=== PATIENT | male | born 1945 | race Caucasian/White ===

== ENCOUNTER → 2016-11-06 | Outpatient (CLI) | payer MEDICARE ==
--- NOTE | 2016-11-06 08:04 | US ---
EXAMINATION TYPE: US duplex aorta DATE OF EXAM: 11/06/2016 7:15 AM COMPARISON: NONE CLINICAL HISTORY: Z78.9Screening For AAA,Z87.891 Personal hx of vincenzo. AAA screening EXAM MEASUREMENTS: Abdominal Aorta: Proximal: 2.1 x 2.4cm Mid: 1.8 x 1.7cm Distal: 1.5 x 1.4cm Rt Iliac: 0.7 x 0.9cm Lt Iliac: 0.8 x 1.0cm No AAA seen at this time, visualized portions of aorta wnl, mid portion limited by overlying bowel ga s IMPRESSION: 1. No abdominal aortic aneurysm
--- NOTE | 2016-11-06 10:23 | CTL ---
EXAMINATION TYPE: CT Low Dose LUNG CANCER SCREENING DATE OF EXAM ORDERED: 11/06/2016 7:43 AM HISTORY: 71-year-old male personal history of tobacco use. Lung cancer screening CT DLP: 79.[address] CTDI: 2.10 mGy Automated exposure control for dose reduction was used. SCREENING VISIT: Baseline COMPARISON: None TECHNIQUE: Low dose computed tomography scan was performed through the chest at 1 mm thick sections and reconstructed images in the coronal plane at [address] DIAGNOSTIC QUALITY: Satisfactory FINDINGS: The heart is normal size without pericardial effusion. Minimal coronary vascular calcifications are noted. There is conventional arch vessel branching anatomy with mild atherosclerotic arch calcifications and mild aneurysm of the upper descending thoracic aorta at 3.3 cm. The remainder of the descending thoracic aorta remains ectatic measuring up to 2.9 cm. Scattered nonenlarged mediastinal lymph nodes are present. No thoracic lymphadenopathy by CT size criteria allowing for noncontrast technique. Tiny calcified lymph nodes in both braydon and a calcified granuloma at the right apex. Evaluation of the lungs shows moderate centrilobular emphysema with moderate thickened biapical pleural parenchymal scarring. There is a tiny 4 mm subpleural pulmonary nodule peripheral right middle lobe axial image 181. No additional pulmonary nodule. Mild diffuse bronchial wall thickening. Hazy scarring or atelectasis at the posterior right base. There is a small hiatal hernia. Visualized upper abdomen shows a 1.2 cm nodule in the left adrenal gland, statistically, representing a benign adrenal adenoma. Bones: There is a superior endplate Schmorl's node of L2 and T4 vertebral bodies. No osseous destructive process. IMPRESSION: 1. LungRADS 3 - probably benign; a 4 mm right-sided pulmonary nodule on baseline. 2. COPD with moderate emphysema. 3. 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 4. Small hiatal hernia and a 1.2 cm left adrenal nodule. RECOMMENDATION: 1. Six-month follow-up low-dose CT to reassess the 4 mm pulmonary nodule. 2. Smoking cessation. 3. The 1.2 cm left adrenal gland nodule is presumably a benign adrenal adenoma and can be reassessed at a one-year follow-up CT. CT LUNG RAD: Lung-Rad 3 Probably Benign MTDD
== END | disposition home or self-care (01) ==
LOC: RADUSWWP 06:48
PROVIDERS: ATTEND Family Medicine
DX: J43.9 Emphysema, unspecified (principal); R91.1 Solitary pulmonary nodule; I71.2 Thoracic aortic aneurysm, without rupture; K44.9 Diaphragmatic hernia without obstruction or gangrene; Z87.891 Personal history of nicotine dependence; Z78.9 Other specified health status
CPT/HCPCS: 93979; G0297

== ENCOUNTER → 2018-07-13 | Outpatient (CLI) | payer MEDICARE ==
--- NOTE | 2018-07-13 09:27 | CTL ---
EXAMINATION TYPE: CT Low Dose Lung DATE OF EXAM ORDERED: 07/13/2018 HISTORY: 73-year-old male personal history of tobacco use (50 pack-years). Lung cancer screening CT DLP: [address] CTDI: 1.61 mGy Automated exposure control for dose reduction was used. SCREENING VISIT: 1.5 year follow-up from baseline COMPARISON: 11/06/2016 and 06/07/2017 TECHNIQUE: Low dose computed tomography scan was performed through the chest at 1 mm thick sections a nd reconstructed images in the coronal/sagittal plane. CT DIAGNOSTIC QUALITY: Satisfactory FINDINGS: Heart is normal size without pericardial effusion. Mild atherosclerotic arch calcifications. Conventional arterial vessel branching anatomy. Upper desce nding thoracic aorta mildly aneurysmal at 3.1 cm. Scattered nonenlarged mediastinal lymph nodes are unchanged. No progressive thoracic lymphadenopathy. Trace bilateral gynecomastia. Mild to moderate diffuse bronchial wall thickening and moderate emphysematous change. Stable biapical pleural-parenchymal scarring. Some strandy areas of scarring remain on both sides. Stable 4 mm subpl eural right middle lobe pulmonary nodule, axial image 184. No new suspicious pulmonary nodule or mass no consolidation or pleural effusion. Visualized upper abdomen shows a small hiatal hernia The previously seen left adrenal nodularity is not apparent on the current exam. There is a greater d egree the ethmoid artifact. Bones: Superior endplate Schmorl's node of L2 and T4 redemonstrated. IMPRESSION: 1. LungRADS 2 - benign; stable 4 mm right middle lobe pulmonary nodule. No new pulmonary nodules. 2. COPD with moderate emphysema. 3. Small hiatal hernia. RECOMMENDATION: 1. Continue annual low-dose lung cancer screening CT. 2. Smoking cessation. FOLLOW UP CT CHEST RECOMMENDATION: [address] LUNG RAD: Lung-Rad 2 Benign Appearance or Behavior
== END | disposition home or self-care (01) ==
LOC: RADCTMAIN 08:35
PROVIDERS: ATTEND Family Medicine
DX: Z12.2 Encounter for screening for malignant neoplasm of respiratory organs (principal); J43.9 Emphysema, unspecified; R91.1 Solitary pulmonary nodule; K44.9 Diaphragmatic hernia without obstruction or gangrene; Z87.891 Personal history of nicotine dependence

== ENCOUNTER → 2019-03-14 | Outpatient (CLI) | payer MEDICARE ==
--- NOTE | 2019-03-14 15:36 | US ---
EXAMINATION TYPE: US carotid duplex BILAT DATE OF EXAM: 03/14/2019 COMPARISON: NONE CLINICAL HISTORY: R42 vertigo. EXAM MEASUREMENTS: RIGHT: Peak Systolic Velocity (PSV) cm/sec ----- Right CCA: 66.9 ----- Right ICA: 83.1 ----- Right ECA: 72.9 ICA/CCA ratio: 1.2 RIGHT: End Diastole cm/sec ----- Right CCA: 19.7 ----- Right ICA: 34.7 ----- Right ECA: 12.7 LEFT: Peak Systolic Velocity (PSV) cm/sec ----- Left CCA: 64.3 ----- Left ICA: 77.9 ----- Left ECA: 17.7 ICA/CCA ratio: 1.2 LEFT: End Diastole cm/sec ----- Left CCA: 21.6 ----- Left ICA: 36.0 ----- Left ECA: 17.7 VERTEBRALS (direction of flow): Right Vertebral: Antegrade Left Vertebral: Antegrade Rhythm: Normal Mild plaque, no significant velocity increases seen bilaterally. IMPRESSION: Mild degree of grayscale atheromatous plaquing with no sonographically evident hemodynam ically significant stenosis within either visualized carotid arterial system. Criteria for Assigning % of Stenosis / Diameter reduction (Estimation based on the indirect measurements of the internal carotid artery velocities (ICA PSV). 1. Normal (no stenosis)=ICA PSV < 125 cm/s: ratio < 2.0: ICA EDV<40 cm/s. 2. Less than 50% stenosis=ICA PSV < 125 cm/s: ratio < 2.0: ICA EDV<40 cm/s. 3. 50 to 69% stenosis=ICA PSV of 125 to 230 cm/s: ration 2.0 ? 4.0: ICA EDV 40-100 cm/s. 4. Greater than 70% stenosis to near occlusion= ICA PSV > 230 cm/s: ratio > 4.0: ICA EDV > 100 cm/s. 5. Near occlusion= ICA PSV velocities may be low or undetectable: variable ratio and ICA EDV. 6. Total occlusion=unable to detect flow.
== END | disposition home or self-care (01) ==
LOC: RADUSWWP 14:04
PROVIDERS: ATTEND Family Medicine
DX: I65.29 Occlusion and stenosis of unspecified carotid artery (principal); R42 Dizziness and giddiness
CPT/HCPCS: 93880

== ENCOUNTER → 2019-03-16 | Outpatient (CLI) | payer MEDICARE ==
--- NOTE | 2019-03-16 12:03 | ECHOS ---
STRESS ECHOCARDIOGRAM INDICATIONS: Vertigo. MEDICATIONS: None. BASELINE HEART RATE: 77 BASELINE BLOOD PRESSURE: 118/82 MAXIMUM HEART RATE: 139 MAXIMUM BLOOD PRESSURE: 197/94 85% MPHR: 123 100% MPHR: 145 METS: 7.1 MAXIMUM STAGE REACHED: 2 TOTAL EXERCISE TIME: 6:02 CLINICAL INFORMATION: Baseline rhythm is a sinus mechanism, rate of 77, normal axis and intervals, rare PVCs. Baseline blood pressure 118/82 mmHg. Patient exercised on Good protocol for 6 minutes, 2 seconds reaching peak rate 139 beats per minute which is equal to 96% maximum predicted heart rate. Peak blood pressure 197/74 mmHg. Test was terminated secondary to fatigue. There was no chest pain. Electrocardiograph monitoring revealed frequent ventricular ectopic activity with episode of supraventricular ectopic activity, rare ventricular couplets were noted. There was no evidence of diagnostic ischemic ST- segment changes. FINDINGS: Baseline echocardiogram revealed normal wall thickening and motion. The images obtained at rest following exercise were done when the heart rate has returned to almost baseline Because of the severe arrhythmia and the quality of the images suboptimal. No clear conclusion could be made. CONCLUSION: 1. Average exercise tolerance with no electrocardiographic ST-segment changes with frequent ventricular ectopic activity and episode of supraventricular ectopic activity. 2. Nondiagnostic stress echocardiogram because of the severe arrhythmia and the suboptimal images. 3. If clinically indicated a pharmacological nuclear imaging test will be helpful. MMODL / IJN: [id number] /
== END | disposition home or self-care (01) ==
LOC: RADNMMAIN 08:58
PROVIDERS: ATTEND Family Medicine
DX: I49.3 Ventricular premature depolarization (principal); I25.10 Atherosclerotic heart disease of native coronary artery without angina pectoris
CPT/HCPCS: 93351

== ENCOUNTER → 2019-06-20 | Day surgery (SDC) | payer MEDICARE ==
[2019-06-12 12:53] VITALS: BMI 21.4
[~2019-06-20] MED LIST: ATORVASTATIN 20 MG TAB PO SCH; MIDAZOLAM 2 MG/2 ML VIAL IVP ONE; NON FORMULARY DRUG (Aspirin [Adult Low Dose Aspirin Ec] 81 MG) PO SCH; NON FORMULARY DRUG (Latanoprost/Pf [Latanoprost 0.005% Eye Drop] 1 DROP) BOTH EYES SCH; SODIUM CHLORIDE 0.9% 1,000 ML IV SCH; SODIUM CHLORIDE 0.9% 500 ML 500 ML IV ONE; VARENICLINE 1 MG TAB PO SCH; fentaNYL (PF) 50 MCG/ML 2 ML AMP IVP ONE; fentaNYL (PF) 50 MCG/ML 2 ML AMP ONE
[2019-06-20 06:39] VITALS: TEMP 98.2
[2019-06-20] MEDS: BENZOCAINE SPRAY 1 CAN TOPICAL ONE ×2 (07:23→07:32)
[2019-06-20 07:48] VITALS: RESP 14
--- NOTE | 2019-06-20 08:15 | ECHOT ---
TRANSESOPHAGEAL ECHOCARDIOGRAM INDICATION: Evaluation of mitral valve. PROCEDURE: After explaining the procedure to the patient, its risks and the complications, his blood pressure, heart rate, O2 saturation was monitored. The throat was sprayed with Cetacaine. He received 3 mg intravenous Versed, 50 mcg intravenous fentanyl. The probe was introduced in the esophagus without difficulty. Images were obtained. Following that, the probe was removed. There was no immediate complication. FINDINGS: Left atrial size is dilated. Left atrial appendage is normal. Left ventricular size and systolic function normal. The aortic valve appears to be normal. Tricuspid valve is normal. The mitral valve reveals severe collapse of the P3 segment. The descending thoracic aorta appears to be normal. No pericardial effusion was noted. Doppler pulse wave and color Doppler obtained and revealed a severe mitral regurgitation with mild tricuspid regurgitation. There was no shunting across the interatrial septum by color Doppler study. CONCLUSION: 1. Dilated left atrium with normal appearance of left atrial appendage. 2. Normal left ventricular size and systolic function. 3. Severe prolapse of the posterior mitral valve leaflets with severe mitral regurgitation. 4. Mild tricuspid regurgitation. 5. No shunting by color Doppler study. 6. Normal appearance to the descending thoracic aorta. 7. No pericardial effusion. MMODL / IJN: [id number] /
[2019-06-20 08:22] VITALS: PULSE 71
[2019-06-20 08:42] VITALS: BP 116/57
== END | disposition home or self-care (01) ==
LOC: CATHCVL 06:19
PROVIDERS: ATTEND Internal Medicine Interventional Cardiology
DX: I08.1 Rheumatic disorders of both mitral and tricuspid valves (principal); E78.2 Mixed hyperlipidemia; R11.0 Nausea; R35.1 Nocturia; F17.210 Nicotine dependence, cigarettes, uncomplicated; Z79.899 Other long term (current) drug therapy; Z79.82 Long term (current) use of aspirin; Z88.0 Allergy status to penicillin
CPT/HCPCS: 93312; 93325; J2250; J3010

== ENCOUNTER → 2019-07-12 | Outpatient (CLI) | payer MEDICARE ==
[2019-07-12 13:14] LABS: African American GFR (CKD) 95.8 (60.0-200.0); Albumin 4.5 g/dL (3.80-4.90); Albumin/Globulin Ratio 2.25 (1.60-3.17); Anion Gap 7.5 mmol/L (4.00-12.00); BUN/Creat Ratio 21.11 Ratio (12.00-20.00); Calcium 9.4 mg/dL (8.7-10.3); Carbon Dioxide 26.5 mmol/L (21.6-31.8); Chol/HDL Ratio 2.32; LDL Cholesterol,Calculated 68.2 mg/dL (0.0-131.0); Non-African American GFR(CKD) 82.7 (60.0-200.0); Potassium 4.2 mmol/L (3.5-5.5); Total Bilirubin 0.8 mg/dL (0.3-1.2); Total Protein 6.5 g/dL (6.2-8.2); VLDL Calculation 14.8 mg/dL (5.00-40.00)
== END | disposition home or self-care (01) ==
LOC: LABWHC1 07:18
PROVIDERS: ATTEND Internal Medicine Interventional Cardiology
DX: E78.2 Mixed hyperlipidemia (principal)
CPT/HCPCS: 36415; 80053; 80061

== ENCOUNTER 2019-07-13 06:10 | Day surgery (SDC) | payer MEDICARE ==
[2019-07-11 11:35] VITALS: BMI 21.4
[~2019-07-13 06:10] MED LIST changes: +ALPRAZolam 0.25 MG TAB PO PRN; +ALPRAZolam 0.5 MG TAB PO PRN; -ATORVASTATIN 20 MG TAB PO SCH; -MIDAZOLAM 2 MG/2 ML VIAL IVP ONE; +NITROGLYCERIN SL TABS 0.4 MG TAB SUBLINGUAL PRN; -NON FORMULARY DRUG (Aspirin [Adult Low Dose Aspirin Ec] 81 MG) PO SCH; -NON FORMULARY DRUG (Latanoprost/Pf [Latanoprost 0.005% Eye Drop] 1 DROP) BOTH EYES SCH; -SODIUM CHLORIDE 0.9% 1,000 ML IV SCH; +SODIUM CHLORIDE 0.9% 1,000 ML in EMPTY BAG 1 BAG IV ONE; -SODIUM CHLORIDE 0.9% 500 ML 500 ML IV ONE; -VARENICLINE 1 MG TAB PO SCH; -fentaNYL (PF) 50 MCG/ML 2 ML AMP IVP ONE; -fentaNYL (PF) 50 MCG/ML 2 ML AMP ONE
[2019-07-13 06:49] VITALS: RESP 16; TEMP 97.8
[2019-07-13] MEDS ORDERED: SODIUM CHLORIDE 0.9% 1,000 ML IV ONE (06:51)
[2019-07-13] MEDS ORDERED: ATORVASTATIN 80 MG TAB PO ONE (07:00)
[2019-07-13] MEDS ORDERED: ASPIRIN 325 MG TAB PO ONE (07:00)
[2019-07-13 07:10] LABS: Basophils # (A) 0.1 k/uL (0-0.2); Basophils % (A) 1 %; Eosinophils # (A) 0.2 k/uL (0-0.7); Eosinophils % (A) 3 %; HCT 47.3 % (39.0-53.0); HGB 15.6 gm/dL (13.0-17.5); Lymphocytes # (A) 1.2 k/uL (1.0-4.8); Lymphocytes % (A) 16 %; MCH 31.5 pg (25.0-35.0); MCHC 33.1 g/dL (31.0-37.0); MCV 95.2 fL (80.0-100.0); Mean Platelet Volume 7.7; Monocytes # (A) 0.5 k/uL (0-1.0); Monocytes % (A) 7 %; Neutrophils # (A) 4.9 k/uL (1.3-7.7); Neutrophils % (A) 70 %; Platelet Count 199 k/uL (150-450); RBC 4.97 m/uL (4.30-5.90); RDW 12.8 % (11.5-15.5); WBC 7.1 k/uL (3.8-10.6)
[2019-07-13 07:20] LABS: African American GFR (CKD) >90 (>60 ml/min/1.73 sqM); Anion Gap 10 mmol/L; Blood Urea Nitrogen 24 mg/dL (9-20); Calcium 9.4 mg/dL (8.4-10.2); Carbon Dioxide 27 mmol/L (22-30); Chloride 107 mmol/L (98-107); Glucose 101 mg/dL (74-99); Non-African American GFR(CKD) 86 (>60 ml/min/1.73 sqM); Potassium 4.3 mmol/L (3.5-5.1); Sodium 144 mmol/L (137-145)
[2019-07-13] MEDS ORDERED: VERAPAMIL 2.5 MG/ML 2 ML AMP ONE (07:28)
[2019-07-13] MEDS ORDERED: fentaNYL (PF) 50 MCG/ML 2 ML AMP ONE (07:28)
[2019-07-13] MEDS ORDERED: LIDOCAINE 1% INJ 10MG/ML (20 ML MDV) ONE (07:28)
[2019-07-13] MEDS ORDERED: HEPARIN SODIUM 1,000 UN/ML (10ML VL) ONE (07:28)
[2019-07-13] MEDS ORDERED: fentaNYL (PF) 50 MCG/ML 2 ML AMP IV ONE (07:36)
[2019-07-13] MEDS ORDERED: LIDOCAINE 1% INJ 10MG/ML (20 ML MDV) SQ ONE (07:39)
[2019-07-13] MEDS ORDERED: MIDAZOLAM 2 MG/2 ML VIAL IV ONE (07:39)
[2019-07-13] MEDS ORDERED: VERAPAMIL SYRINGE (5 MG/10 ML) INTRAARTER ONE (07:48)
[2019-07-13] MEDS ORDERED: HEPARIN SODIUM 1,000 UN/ML (10ML VL) IV ONE ×2 (07:53→07:56)
[2019-07-13] MEDS ORDERED: IOPAMIDOL-370 125ML BTL INJ ONE (08:16)
[2019-07-13] MEDS ORDERED: RX INFO: IV CONTRAST WAS GIVEN 1 EACH MISC MISCELLANE PRN (08:19)
[2019-07-13] MEDS ORDERED: SODIUM CHLORIDE 0.9% 1,000 ML IV SCH (08:30)
--- NOTE | 2019-07-13 08:39 | CC ---
CARDIAC CATHETERIZATION REPORT Mr. Bedolla is a 74-year-old male with a known history off mitral valve disease, who was found to have severe mitral valve regurgitation as well as mitral valve prolapse. He has symptoms of dyspnea. In view of that, recommendation made regarding cardiac catheterization. The procedures, risks, and complication were discussed with the patient who is in full understanding and agreement. PROCEDURE: Patient was brought to labor relations teacher in a fasting semi-sedated state after receiving fentanyl and Benadryl and achieving moderate conscious sedated state. Using Xylocaine anesthesia and Seldinger technique, a 6-Prydeinig sheath was introduced in the right radial artery. The intravenous catheter in the brachial area was exchanged to a 6- Prydeinig sheath over a guidewire. Subsequently, attempts to advance a Mcroberts-Malinad catheter in the superior vena cava were unsuccessful. That catheter was removed and selective right and left coronary angiography performed using 5-Prydeinig 3.5 bend right and left Edson catheter, multiple views of the coronary artery including hemiaxial views obtained. Following that, a 5-Prydeinig tight pigtail catheter was introduced into the left ventricle and a 30-degree RICHARDS view of the left ventricle was obtained. Following that, catheter and sheath were removed. Hemostasis was obtained with deployment of a TR band. There was no immediate complication. Patient is returned to his room in stable condition. Of note, the patient received 4000 units of intravenous heparin as well as intra-arterial verapamil. FINDINGS: LEFT MAIN: This is a large-sized vessel, bifurcating into left circumflex, left anterior descending artery, left main coronary artery has no evidence of high-grade stenosis. LEFT ANTERIOR DESCENDING ARTERY: This is a large-sized vessel, reaching toward the apex with a wraparound apex segment giving rise to a moderate-sized diagonal branch in mid segment. The left anterior descending coronary artery as well as branches have no evidence of obstructive coronary artery disease. LEFT CIRCUMFLEX: This is a nondominant vessel giving rise to a proximal obtuse marginal branch. The second obtuse marginal branch is small in caliber. The left circumflex as well as branches have no evidence of obstructive coronary artery disease. RIGHT CORONARY ARTERY: This is a dominant vessel, large in caliber, bifurcating in PDA and posterolateral segment branches. The right coronary artery as well as branches have no evidence of obstructive coronary artery disease. LEFT VENTRICULOGRAM: Left was performed in the 30 degree RICHARDS view and revealed normal left ventricular size and systolic function. There was a 3 to 4+ mitral regurgitation. HEMODYNAMICS: There was no gradient across the aortic valve. The left ventricular end- diastolic pressure was 10-12 mmHg. CONCLUSION: 1. Normal coronary arteries. 2. Normal left ventricular size and systolic function with severe mitral regurgitation. RECOMMENDATION: In view of finding anatomy, I recommend continue medical therapy and proceed with evaluation for mitral valve repair. Those findings and recommendation were discussed with the patient and his family who are in full understanding and agreement. Duration of procedure is 18 minutes. MMODL / IJN: [id number] /
[2019-07-13] MEDS ORDERED: VARENICLINE 1 MG TAB PO SCH (09:00)
[2019-07-13] MEDS ORDERED: NON FORMULARY DRUG (Aspirin [Adult Low Dose Aspirin Ec] 81 MG) PO SCH (09:00)
[2019-07-13 13:17] VITALS: BP 125/64; PULSE 65
[2019-07-13] MEDS ORDERED: ATORVASTATIN 20 MG TAB PO SCH (21:00)
[2019-07-13] MEDS ORDERED: NON FORMULARY DRUG (Latanoprost/Pf [Latanoprost 0.005% Eye Drop] 1 DROP) BOTH EYES SCH (21:00)
== END 2019-07-13 13:35 | disposition home or self-care (01) ==
LOC: CATHCVL 06:10
PROVIDERS: ATTEND Internal Medicine Interventional Cardiology
DX: I34.0 Nonrheumatic mitral (valve) insufficiency (principal); I34.1 Nonrheumatic mitral (valve) prolapse; E78.2 Mixed hyperlipidemia; I71.4 Abdominal aortic aneurysm, without rupture; E78.00 Pure hypercholesterolemia, unspecified; E78.5 Hyperlipidemia, unspecified; I73.9 Peripheral vascular disease, unspecified; Z79.899 Other long term (current) drug therapy; Z87.891 Personal history of nicotine dependence; Z79.82 Long term (current) use of aspirin; Z88.0 Allergy status to penicillin
CPT/HCPCS: 93458; 80048; 85025; C1751; C1769; C1894; J2250; J2001; J3010; J1644; Q9967

== ENCOUNTER → 2019-12-27 | Outpatient (CLI) | payer MEDICARE ==
[2019-12-27 17:08] LABS: African American GFR (CKD) 95.8 (60.0-200.0); Albumin 4.1 g/dL (3.80-4.90); Albumin/Globulin Ratio 1.95 (1.60-3.17); Anion Gap 5.5 mmol/L (4.00-12.00); BUN/Creat Ratio 21.11 Ratio (12.00-20.00); Carbon Dioxide 25.5 mmol/L (21.6-31.8); Chol/HDL Ratio 2.33; Globulin 2.1 g/dL (1.6-3.3); LDL Cholesterol,Calculated 65.2 mg/dL (0.0-131.0); Non-African American GFR(CKD) 82.7 (60.0-200.0); Potassium 4.4 mmol/L (3.5-5.5); Total Bilirubin 0.5 mg/dL (0.3-1.2); Total Protein 6.2 g/dL (6.2-8.2); VLDL Calculation 11.8 mg/dL (5.00-40.00)
== END | disposition home or self-care (01) ==
LOC: LABWHC1 08:09
PROVIDERS: ATTEND Internal Medicine Interventional Cardiology
DX: E78.2 Mixed hyperlipidemia (principal)
CPT/HCPCS: 36415; 80053; 80061

== ENCOUNTER → 2020-06-17 | Outpatient (CLI) | payer MEDICARE ==
[2020-06-17 17:00] LABS: African American GFR (CKD) 95.1 (60.0-200.0); Albumin 4.5 g/dL (3.80-4.90); Albumin/Globulin Ratio 2.05 (1.60-3.17); Anion Gap 6.7 mmol/L (4.00-12.00); BUN/Creat Ratio 25.56 Ratio (12.00-20.00); Calcium 9.3 mg/dL (8.7-10.3); Carbon Dioxide 26.3 mmol/L (21.6-31.8); Chol/HDL Ratio 2.85; Globulin 2.2 g/dL (1.6-3.3); LDL Cholesterol,Calculated 87.4 mg/dL (0.0-131.0); Non-African American GFR(CKD) 82.1 (60.0-200.0); Potassium 4.3 mmol/L (3.5-5.5); Total Bilirubin 1.1 mg/dL (0.2-1.2); Total Protein 6.7 g/dL (6.2-8.2); VLDL Calculation 14.6 mg/dL (5.00-40.00)
== END | disposition home or self-care (01) ==
LOC: LABWHC1 09:18
PROVIDERS: ATTEND Internal Medicine Interventional Cardiology
DX: E78.2 Mixed hyperlipidemia (principal)
CPT/HCPCS: 36415; 80053; 80061

== ENCOUNTER → 2020-11-14 | Outpatient (CLI) | payer MEDICARE ==
--- NOTE | 2020-11-14 10:15 | CTL ---
EXAMINATION TYPE: CT Low Dose Lung DATE OF EXAM ORDERED: 11/14/2020 HISTORY: Long-term tobacco use. Lung cancer screening CT DLP: [address] CTDI: 1.57 mGy Automated exposure control for dose reduction was used. SCREENING VISIT: Second after baseline COMPARISON: 2018 and 2017 TECHNIQUE: Low dose computed tomography scan was performed through the chest at 1 mm thick sections a nd reconstructed images in the coronal plane at [address] DIAGNOSTIC QUALITY: Satisfactory FINDINGS: LUNG NODULES: Present, detailed below: Stable 3 mm subpleural nodule right middle lobe axial image 186. Stable 3-4 mm right upper lobe nodule axial image 72 in retrospect. LUNGS: COPD: Severity: Moderate Fibrosis: Severity: Moderate biapical Lymph nodes: No new greater than 1 cm Other findings: None RIGHT PLEURAL SPACE: Effusion: None Calcification: None Thickening: None Pneumothorax: None LEFT PLEURAL SPACE: Effusion: None Calcification: None Thickening: None Pneumothorax: None HEART: Heart Size: Normal Coronary calcification: Mild Pericardial effusion: None OTHER FINDINGS: Upper abdomen: Stable small slight hiatal hernia. Stable asymmetric thickening to left adrenal gland. Nonspecific 1.7 cm hypodense lesion right hepatic lobe image 354 not included in field of view on pr ior study. Bony thorax: Prominent Schmorl node superior L2 endplate redemonstrated. Supraclavicular region: Asymmetric prominence left thyroid lobe versus right thyroid lobe Other: Mild calcified plaque of the aorta extends into branch vessels IMPRESSION: Moderate emphysematous change with stable small nodules. No new or enlarging nodules. CT LUNG RAD AND CT CHEST RECOMMENDATION: Lung-Rad 2 Benign Appearance or Behavior: Continue annual sc reening with LDCT in 12 months. S Modifier (other clinically significant findings): None
[2020-11-14 16:39] LABS: Chol/HDL Ratio 2.91
== END | disposition home or self-care (01) ==
LOC: RADCTMAIN 06:56
PROVIDERS: ATTEND Family Medicine
DX: Z12.2 Encounter for screening for malignant neoplasm of respiratory organs (principal); J43.9 Emphysema, unspecified; R91.8 Other nonspecific abnormal finding of lung field; Z87.891 Personal history of nicotine dependence
CPT/HCPCS: 36415; 71271; 80061

== ENCOUNTER → 2021-03-13 | Outpatient (CLI) | payer MEDICARE ==
[2021-03-13 22:11] LABS: African American GFR (CKD) 95.1 (60.0-200.0); Albumin 4.8 g/dL (3.80-4.90); Albumin/Globulin Ratio 2.09 (1.60-3.17); Anion Gap 9.8 mmol/L (4.00-12.00); BUN/Creat Ratio 21.11 Ratio (12.00-20.00); Calcium 9.5 mg/dL (8.7-10.3); Carbon Dioxide 25.2 mmol/L (21.6-31.8); Chol/HDL Ratio 2.67; Globulin 2.3 g/dL (1.6-3.3); LDL Cholesterol,Calculated 86.8 mg/dL (0.0-131.0); Non-African American GFR(CKD) 82.1 (60.0-200.0); Potassium 4.2 mmol/L (3.5-5.5); Total Bilirubin 0.7 mg/dL (0.3-1.2); Total Protein 7.1 g/dL (6.2-8.2); VLDL Calculation 13.2 mg/dL (5.00-40.00)
== END | disposition home or self-care (01) ==
LOC: LABWHC1 07:32
PROVIDERS: ATTEND Nurse Practitioner Adult Health
DX: E78.2 Mixed hyperlipidemia (principal)
CPT/HCPCS: 36415; 80053; 80061

== ENCOUNTER → 2021-07-21 | Outpatient (CLI) | payer MEDICARE ==
[2021-07-21 15:01] LABS: African American GFR (CKD) 98.3 (60.0-200.0); Albumin/Globulin Ratio 1.48 (1.60-3.17); Anion Gap 9.8 mmol/L (10.00-18.00); BUN/Creat Ratio 24.36 Ratio (12.00-20.00); Blood Urea Nitrogen 19.9 mg/dL (9.0-27.0); Calcium 8.9 mg/dL (8.7-10.3); Carbon Dioxide 24.2 mmol/L (20.0-27.5); Globulin 2.7 g/dL (1.6-3.3); HDL Cholesterol 47.7 mg/dL (40.00-60.00); Non-African American GFR(CKD) 84.8 (60.0-200.0); Potassium 4.4 mmol/L (3.5-5.5); Total Bilirubin 0.3 mg/dL (0.30-1.20); Total Protein 6.7 g/dL (6.2-8.2); Triglycerides 44.2 mg/dL (0.00-149.00)
[2021-07-21 15:17] LABS: Chol/HDL Ratio 2.68 Ratio
[2021-07-21 15:18] LABS: LDL Cholesterol,Direct Reflex 70.6 mg/dL (0.00-129.00)
== END | disposition home or self-care (01) ==
LOC: LABWHC1 08:14
PROVIDERS: ATTEND Internal Medicine Interventional Cardiology
DX: E78.2 Mixed hyperlipidemia (principal)
CPT/HCPCS: 36415; 80053; 80061; 83721

== ENCOUNTER → 2021-08-21 | Outpatient (CLI) | payer MEDICARE ==
--- NOTE | 2021-08-21 09:54 | P.PN ---
Progress Note - Text Progress Note Date: 08/21/21 5 meter walk test completed without difficulty: #1 2.98 sec #2 3.33 sec #3 3.73 sec
[2021-08-21 10:10] LABS: INR 0.9 (<1.2); Partial Thromboplastin Time 24.6 sec (22.0-30.0); Prothrombin Time 10.4 sec (9.0-12.0)
[2021-08-21 10:35] LABS: Appearance,Urine Clear (Clear); Bilirubin,Urine Negative (Negative); Blood,Urine Negative (Negative); Color,Urine Yellow; Glucose,Urine (UA) Negative (Negative); Ketones,Urine Negative (Negative); Leukocyte Esterase,Urine Negative (Negative); Nitrite,Urine Negative (Negative); Protein,Urine Negative (Negative); Specific Gravity,Urine 1.016 (1.001-1.035); Urobilinogen,Urine <2.0 mg/dL (<2.0)
--- NOTE | 2021-08-21 11:15 | XR ---
EXAMINATION TYPE: XR chest 2V DATE OF EXAM: 08/21/2021 COMPARISON: CT dated 11/14/2020 HISTORY: Presurgical for heart TECHNIQUE: Frontal and lateral views of the chest are obtained. FINDINGS: COPD changes. Bilateral apical pulmonary fibrotic changes. Minimal left basal pulmonary atelectasis. No sizable pleural effusion or definite pneumothorax. No gross cardiomegaly. Aortic atherosclerotic calcifications. Osteopenia. Stable central height reduc tion of T7 vertebral body. IMPRESSION: COPD changes with bilateral apical pulmonary fibrotic changes.
--- NOTE | 2021-08-21 13:20 | US ---
EXAMINATION TYPE: US carotid duplex BILAT DATE OF EXAM: 08/21/2021 COMPARISON: US CLINICAL HISTORY: I34.0 mitral valve insufficiency. Pre op diagnostic testing; prior smoker; dizzines s EXAM MEASUREMENTS: RIGHT: Peak Systolic Velocity (PSV) cm/sec ----- Right CCA: 71.0 ----- Right ICA: 68.6 ----- Right ECA: 58.1 ICA/CCA ratio: 1.0 RIGHT: End Diastole cm/sec ----- Right CCA: 22.6 ----- Right ICA: 25.0 ----- Right ECA: 15.4 LEFT: Peak Systolic Velocity (PSV) cm/sec ----- Left CCA: 74.3 ----- Left ICA: 67.5 ----- Left ECA: 74.3 ICA/CCA ratio: 0.9 LEFT: End Diastole cm/sec ----- Left CCA: 21.0 ----- Left ICA: 28.7 ----- Left ECA: 14.2 VERTEBRALS (direction of flow): Right Vertebral: Antegrade Left Vertebral: Antegrade Rhythm: Arrhythmia Mild intimal wall thickening is noted at bilateral carotid bifurcation and PSV is wnl bilaterally. IMPRESSION: Mild intimal thickening. No significant flow-limiting stenosis based on velocities evide nt. Criteria for Assigning % of Stenosis / Diameter reduction (Estimation based on the indirect measurements of the internal carotid artery velocities (ICA PSV). 1. Normal (no stenosis)=ICA PSV < 125 cm/s: ratio < 2.0: ICA EDV<40 cm/s. 2. Less than 50% stenosis=ICA PSV < 125 cm/s: ratio < 2.0: ICA EDV<40 cm/s. 3. 50 to 69% stenosis=ICA PSV of 125 to 230 cm/s: ration 2.0 ? 4.0: ICA EDV 40-100 cm/s. 4. Greater than 70% stenosis to near occlusion= ICA PSV > 230 cm/s: ratio > 4.0: ICA EDV > 100 cm/s. 5. Near occlusion= ICA PSV velocities may be low or undetectable: variable ratio and ICA EDV. 6. Total occlusion=unable to detect flow.
[2021-08-21 15:02] LABS: HCT 47.3 % (39.6-50.0); HGB 15.3 g/dL (13.0-17.0); MCH 31.2 pg (27.0-32.0); MCHC 32.3 g/dL (32.0-37.0); MCV 96.5 fL (80.0-97.0); Mean Platelet Volume 10.7 fL (9.5-12.2); NRBC Per 100 WBC 0 /100 WBCS (0.0-0.0); Platelet Count 187 X 10*3/uL (140-440)
[2021-08-21 15:37] LABS: Hepatitis A Antibody IgM Nonreactive (Nonreactive); Hepatitis B Core IgM Nonreactive (Nonreactive); Hepatitis B Surface Antigen Nonreactive (Nonreactive); Hepatitis C IgG Antibody Nonreactive (Nonreactive)
[2021-08-21 15:43] LABS: ALT 20 U/L (10-49); AST 19 U/L (14-35); African American GFR (CKD) 95.8 (60.0-200.0); Albumin 4.6 g/dL (3.8-4.9); Albumin/Globulin Ratio 1.95 (1.60-3.17); Alkaline Phosphatase 62 U/L (41-126); BUN/Creat Ratio 21.15 Ratio (12.00-20.00); Blood Urea Nitrogen 18.4 mg/dL (9.0-27.0); Calcium 9.1 mg/dL (8.7-10.3); Carbon Dioxide 25.1 mmol/L (20.0-27.5); Chloride 101 mmol/L (96-109); Chol/HDL Ratio 2.42 Ratio; Globulin 2.4 g/dL (1.6-3.3); Glucose 100 mg/dL (70-110); Magnesium 2.3 mg/dL (1.5-2.4); Non-African American GFR(CKD) 82.7 (60.0-200.0); Potassium 4.3 mmol/L (3.5-5.5); Sodium 138 mmol/L (135-145); VLDL Calculation 12.96 mg/dL (5.00-40.00)
== END | disposition home or self-care (01) ==
LOC: LABPAT 08:49
PROVIDERS: ATTEND Surgery
DX: I34.0 Nonrheumatic mitral (valve) insufficiency (principal); Z79.01 Long term (current) use of anticoagulants; E78.5 Hyperlipidemia, unspecified
CPT/HCPCS: 36415; 71046; 80053; 80061; 80074; 81003; 83036; 83735; 84443; 85027; 85610; 85730; 87070; 87086; 93880

== ENCOUNTER 2021-08-25 05:34 | Inpatient (IN) | payer MEDICARE ==
[~2021-08-25 05:34] MED LIST changes: +ALBUMIN HUMAN 25% 50 ML IV ONE; -ALPRAZolam 0.25 MG TAB PO PRN; -ALPRAZolam 0.5 MG TAB PO PRN; +ASPIRIN 325 MG TAB PO ONE; +ATORVASTATIN 10 MG TAB PO ONE; +CALCIUM CHLORIDE 100 MG/ML 10 ML SYRINGE IV ONE; +CHLORHEXIDINE GLUCONATE 15 ML CUP MUCOUS MEM ONE; +CLEVIDIPINE BUTYRATE 25 MG in EMPTY BAG 1 BAG IV ONE; +ELECTROLYTE-A SOLUTION 1,000 ML with POTASSIUM CHLORIDE 100 MEQ, MAGNESIUM SULFATE 16 M... IV ONE; +ELECTROLYTE-A SOLUTION 1,000 ML with POTASSIUM CHLORIDE 40 MEQ, MAGNESIUM SULFATE 16 ME... IV ONE; +HEPARIN SODIUM 1,000 UN/ML (10ML VL) IV ONE; +HEPARIN SODIUM,PORCINE 5,000 UNIT in SODIUM CHLORIDE 0.9% 500 ML 500 ML IV ONE; +INSULIN REGULAR 100 UNIT in SODIUM CHLORIDE 0.9% 100 ML IV ONE; +LACTATED RINGERS 1,000 ML IV ONE; +MAGNESIUM SULFATE 16.24 MEQ in EMPTY SYRINGE 1 SYR IV ONE; +MANNITOL 25% 12.5 GM/50 ML VIAL IV ONE; +METOPROLOL TARTRATE 12.5 MG TAB PO ONE; +NITROGLYCERIN SL TABS 0.4 MG TAB SUBLINGUAL ONE; -NITROGLYCERIN SL TABS 0.4 MG TAB SUBLINGUAL PRN; +NITROGLYCERIN-D5W PMX 25 MG/250 ML BTL IV ONE; +NITROGLYCERIN-D5W PMX 50 MG in DEXTROSE/WATER 1 250ML.BAG IV ONE; +NOREPINEPHRINE 4 MG in SODIUM CHLORIDE 0.9% 250 ML IV ONE; +PHENYLEPHRINE 10 MG/ML VIAL IV ONE; +PHENYLEPHRINE 40 MG in SODIUM CHLORIDE 0.9% 250 ML IV ONE; +PROTAMINE SULFATE 10 MG/ML 25 ML VIAL IV ONE; +PROTAMINE SULFATE 250 MG in EMPTY BAG 1 BAG IV ONE; +SODIUM BICARB 8.4% 50 ML SYR (1 MEQ/ML) IV ONE; +SODIUM CHLORIDE 0.9% 1,000 ML IV ONE; -SODIUM CHLORIDE 0.9% 1,000 ML in EMPTY BAG 1 BAG IV ONE; +TRANEXAMIC ACID 2,000 MG in SODIUM CHLORIDE 0.9% 80 ML IV ONE; +ceFAZolin 1,000 MG in SODIUM CHLORIDE 0.9% IRRIGATIO 1,000 ML IRRIGATION ONE; +propofoL 1,000 MG/100 ML VIAL IV ONE
[2021-08-25] MEDS ORDERED: PROTAMINE SULFATE 10 MG/ML 25 ML VIAL IV ONE (07:26)
[2021-08-25] MEDS ORDERED: fentaNYL (PF) 50 MCG/ML 50 ML VIAL ONE (07:26)
[2021-08-25] MEDS ORDERED: ePHEDrine 50 MG/ML 1 ML VIAL ONE (07:26)
[2021-08-25] MEDS ORDERED: TRANEXAMIC ACID IN NACL,ISO-OS 1,000 MG/100 ML BAG ONE (07:26)
[2021-08-25] MEDS ORDERED: SODIUM CHLORIDE 0.9% IRRIG 1,000 ML BTL IRRIGATION ONE (07:26)
[2021-08-25] MEDS ORDERED: HEPARIN SODIUM,PORCINE 10,000 UNIT/ML 1 ML VIAL ONE (07:26)
[2021-08-25] MEDS ORDERED: VECURONIUM 10 MG VIAL IV ONE (07:26)
[2021-08-25] MEDS ORDERED: PROPOFOL 10 MG/ML 20 ML VIAL IV ONE (07:26)
[2021-08-25] MEDS ORDERED: ELECTROLYTE-R (PH 7.4) 1,000 ML IV.SOLN IV ONE (07:26)
[2021-08-25] MEDS ORDERED: MIDAZOLAM HCL 10 MG/10 ML VIAL ONE (07:26)
[2021-08-25] MEDS ORDERED: PHENYLEPHRINE-0.9% NACL SYG 1,000 MCG/10 ML SYRINGE ONE (07:26)
[2021-08-25 08:30] LABS: ABG Base Excess 0.1 mmol/L; ABG Glucose Whole Blood 98 mg/dL (75-99); ABG HCO3 25 mmol/L (21-25); ABG Hematocrit 43 % (34.0-46.0); ABG Ionized Calcium 4.7 mg/dL (4.5-5.3); ABG Oxygen Saturation 99.4 % (94-97); ABG PCO2 42 mmHg (35-45); ABG PH 7.39 (7.35-7.45); ABG PO2 181 mmHg (83-108); ABG Potassium Whole Blood 3.9 mmol/L (3.4-4.5); ABG Sodium Whole Blood 140 mmol/L (135-146); ABG TCO2 26 mmol/L (19-24)
[2021-08-25 09:26] LABS: ABG Base Excess -0.7 mmol/L; ABG Glucose Whole Blood 133 mg/dL (75-99); ABG HCO3 25 mmol/L (21-25); ABG Hematocrit 41 % (34.0-46.0); ABG Ionized Calcium 4.6 mg/dL (4.5-5.3); ABG Oxygen Saturation 99.3 % (94-97); ABG PCO2 45 mmHg (35-45); ABG PH 7.36 (7.35-7.45); ABG PO2 168 mmHg (83-108); ABG Potassium Whole Blood 3.9 mmol/L (3.4-4.5); ABG Sodium Whole Blood 139 mmol/L (135-146); ABG TCO2 27 mmol/L (19-24)
[2021-08-25 10:16] LABS: ABG Glucose Whole Blood 132 mg/dL (75-99); ABG HCO3 25 mmol/L (21-25); ABG Ionized Calcium 3.9 mg/dL (4.5-5.3); ABG PCO2 44 mmHg (35-45); ABG PH 7.36 (7.35-7.45); ABG Potassium Whole Blood 5.4 mmol/L (3.4-4.5); ABG Sodium Whole Blood 135 mmol/L (135-146); ABG TCO2 26 mmol/L (19-24)
[2021-08-25 10:46] LABS: ABG Glucose Whole Blood 130 mg/dL (75-99); ABG HCO3 26 mmol/L (21-25); ABG Ionized Calcium 4.2 mg/dL (4.5-5.3); ABG PCO2 51 mmHg (35-45); ABG PH 7.31 (7.35-7.45); ABG PO2 299 mmHg (83-108); ABG Potassium Whole Blood 5.1 mmol/L (3.4-4.5); ABG Sodium Whole Blood 136 mmol/L (135-146); ABG TCO2 27 mmol/L (19-24)
[2021-08-25 11:28] LABS: ABG Glucose Whole Blood 131 mg/dL (75-99); ABG HCO3 24 mmol/L (21-25); ABG PCO2 37 mmHg (35-45); ABG PH 7.42 (7.35-7.45); ABG PO2 362 mmHg (83-108); ABG Potassium Whole Blood 5.4 mmol/L (3.4-4.5); ABG Sodium Whole Blood 136 mmol/L (135-146); ABG TCO2 25 mmol/L (19-24)
[2021-08-25 12:08] LABS: ABG Lactic Acid Whole Blood 0.9 mmol/L (0.5-1.6)
[2021-08-25 12:08] LABS: ABG Lactic Acid Whole Blood 0.9 mmol/L (0.5-1.6)
[2021-08-25 12:15] LABS: ABG Base Excess 0.9 mmol/L; ABG PO2 >420 mmHg (83-108)
[2021-08-25 12:16] LABS: ABG Hematocrit 31 % (34.0-46.0); ABG Lactic Acid Whole Blood 0.9 mmol/L (0.5-1.6); ABG Oxygen Saturation 99.8 % (94-97)
[2021-08-25 12:17] LABS: ABG Hematocrit 32 % (34.0-46.0); ABG Lactic Acid Whole Blood 0.9 mmol/L (0.5-1.6); ABG Oxygen Saturation 99.6 % (94-97)
[2021-08-25 12:18] LABS: ABG Base Excess 0.3 mmol/L
[2021-08-25 12:19] LABS: ABG Hematocrit 31 % (34.0-46.0); ABG Lactic Acid Whole Blood 1.3 mmol/L (0.5-1.6); ABG Oxygen Saturation 99.8 % (94-97)
[2021-08-25 12:38] LABS: ABG Glucose Whole Blood 126 mg/dL (75-99); ABG HCO3 25 mmol/L (21-25); ABG Ionized Calcium 4.4 mg/dL (4.5-5.3); ABG PCO2 47 mmHg (35-45); ABG PH 7.33 (7.35-7.45); ABG PO2 146 mmHg (83-108); ABG Potassium Whole Blood 4.5 mmol/L (3.4-4.5); ABG Sodium Whole Blood 138 mmol/L (135-146); ABG TCO2 26 mmol/L (19-24)
[2021-08-25 12:47] LABS: ABG Base Excess 1.6 mmol/L; ABG Hematocrit 34 % (34.0-46.0); ABG Lactic Acid Whole Blood 1.5 mmol/L (0.5-1.6)
[2021-08-25] MEDS ORDERED: AMIODARONE 450 MG in DEXTROSE 5% IN WATER 250 ML IV PRN ×2 (12:57)
[2021-08-25] MEDS ORDERED: IPRATROPIUM-ALBUTEROL 3 ML NEB INHALATION PRN (12:57)
[2021-08-25] MEDS ORDERED: CLEVIDIPINE BUTYRATE 25 MG in EMPTY BAG 1 BAG IV SCH (12:57)
[2021-08-25] MEDS ORDERED: CALCIUM GLUCONATE 2 GM in SODIUM CHLORIDE 0.9% 100 ML IVPB PRN (12:57)
[2021-08-25] MEDS ORDERED: hydrALAZINE HCL 20 MG/ML 1 ML VIAL IVP PRN (12:57)
[2021-08-25] MEDS ORDERED: Potassium Replacement Protocol 1 EACH MISC MISCELLANE PRN (12:57)
[2021-08-25] MEDS ORDERED: Phosphorus Replacement Protoco 1 EACH MISC MISCELLANE PRN (12:57)
[2021-08-25] MEDS ORDERED: BENZOCAINE/MENTHOL LOZENG 1 EACH LOZENGE MUCOUS MEM PRN (12:57)
[2021-08-25] MEDS ORDERED: AMIODARONE 360 MG in DEXTROSE 5% IN WATER 200 ML IV PRN ×2 (12:57)
[2021-08-25] MEDS ORDERED: Magnesium Replacement Protocol 1 EACH MISC MISCELLANE PRN (12:57)
[2021-08-25] MEDS ORDERED: MORPHINE SULFATE 2 MG/ML SYRINGE IVP PRN (12:57)
[2021-08-25 13:11] LABS: Glucose,Whole Blood 120 mg/dL (75-99)
[2021-08-25] MEDS ORDERED: DEXMEDETOMIDINE/0.9% NACL(PMX) 400 MCG in EMPTY BAG 1 BAG IV SCH (13:30)
--- NOTE | 2021-08-25 13:33 | P.ANPRN ---
Procedure Note - Anesthesia - BECKY Intraop Pre Bypass BECKY Intraop - Anesthesia Indication: Mitral Valve Repair Surgery Date of Procedure: 08/25/21 Pre-operative Diagnosis: Mitral valve regurgitation Post-operative Diagnosis: Mitral valve repair Surgeon: Deepali Amos Ejection Fraction: Other (EF 55%) Regional Wall Motion Abnormalities: None Left Ventricle Hypertrophy: No R. Ventricle Function: Normal Anatomy: Trileaflet Aortic Stenosis: None Aortic Regurgitation: None Mitral Valve: P2 prolapse of the posterior mitral leaflet seen. Severe anteriorly directed regurgitation seen. Intact Cordae tendinae. C-Sept distance 1.9 cms. Mitral Stenosis: None Mitral Regurgitation: Severe Tricuspid Stenosis: None Tricuspid Regurgitation: Trace R. Atrial Dilation: No R. Atrial PFO: No L. Atrial Dilation: Yes Aortic Dissection: No Aortic Calcification: None Plural Effusion: None - BECKY Intraop Post Bypass BECKY Intraop Post Bypass Procedure Performed: Mitral Valve repair Ejection Fraction: Normal Regional Wall Motion Abnormalities: None R. Ventricle Function: Normal Aortic Valve: Unchanged Mitral Valve: Mitral repair seen with ring. Well seated. No residual regurgitation seen. mean mitral gradient is 2mm of Hg and Peak 6 mm of Hg Tricuspid: Unchanged Pulmonic: Unchanged
[2021-08-25 13:35] LABS: ABG Base Excess -1.9 mmol/L; ABG HCO3 25 mmol/L (21-25); ABG Oxygen Saturation 99.6 % (94-97); ABG PCO2 51 mmHg (35-45); ABG PH 7.29 (7.35-7.45); ABG PO2 390 mmHg (83-108); ABG TCO2 26 mmol/L (19-24); Allen Test Performed? Yes
--- NOTE | 2021-08-25 13:35 | P.ANPRN ---
Procedure Note - Anesthesia - Invasive Line Right [place] Time Out Performed: Yes Date of Procedure: 08/25/21 Time of Procedure: 07:24 Location of Patient: PreOp Preparation: Sterile Prep, Sterile Dressing Ultrasound Used: No Purpose - Visualization and Identification of Vasculature: No (r int jugular vein accesed) Narrative: Central line placement per sterile protocol utilized.
--- NOTE | 2021-08-25 13:42 | P.CNPUL ---
History of Present Illness Consult date: 08/25/21 Requesting physician: Deepali Amos Reason for consult: dyspnea Chief complaint: exertional dyspnea History of present illness: 74-year-old white male patient with past medical history of hypertension, former smoker, COPD, who had symptoms of exertional dyspnea. His workup included cardiac catheterization, 2-D echo and transesophageal echocardiogram. He has preserved left ventricular function, mild left atrial dilatation, he was found to have severe prolapse of P2 was severe mitral valve regurgitation. His carotid ultrasound showed no significant stenosis. Cardiac cath on the 07/13/2019 showed normal coronary arteries, and normal left ventricular size and systolic function with severe mitral regurgitation. She also had low-dose lung CT which showed stable 3 mm subpleural nodule in the right middle lobe, and stable 3-4 mm right upper lobe nodule, moderately severe COPD. Patient actually did not have surgery until today on 08/25/2021 he came in for mitral valve repair, exclusion of the left atrial appendage and intraoperative transesophageal echocardiogram. We are seeing the patient is postoperative period, he is intubated and sedated, he is on small dose to prevent a 25 mics per kilo per minute, 0.50 ML per hour. No vasoactive drips. Vent settings are assist-control with a rate of 16, tidal volume is 400, FiO2 100% and PEEP of 5. Postoperative blood gases pending. Hemodynamically he is stable, blood pressures 102/56, PA pressures 22 over 1, CVP 3, cardiac output is 4.0, cardiac index is 2.1. 2 mediastinal chest tubes connected together with 140 of sanguinous output in the Pleur-evac, and 50 mL of sanguinous output in the right pleural chest tube. In sinus mechanism. Review of Systems All systems: negative Constitutional: Denies chills, Denies fever Eyes: denies blurred vision, denies pain Ears, nose, mouth and throat: Denies headache, Denies sore throat Cardiovascular: Denies chest pain, Denies shortness of breath Respiratory: Reports dyspnea, Denies cough Gastrointestinal: Denies abdominal pain, Denies diarrhea, Denies nausea, Denies vomiting Musculoskeletal: Denies myalgias Integumentary: Denies pruritus, Denies rash Neurological: Denies numbness, Denies weakness Psychiatric: Denies anxiety, Denies depression Endocrine: Denies fatigue, Denies weight change Past Medical History Past Medical History: Cancer, COPD, Eye Disorder, GERD/Reflux, Hyperlipidemia Additional Past Medical History / Comment(s): Mitral Valve Insufficiency,GLAUCOMA BILAT Eyes,Abdominal Aortic Aneurysm,Hiatal Hernia,HX BASAL CELL SKIN CANCER ON FOREHEAD AND RT SIDE OF NECK approx 3-4 yrs ago. History of Any Multi-Drug Resistant Organisms: None Reported Past Surgical History: Appendectomy, Heart Catheterization Additional Past Surgical History / Comment(s): BECKY,COLONOSCOPY,SKIN CANCER REMOVED,. BILAT CATARACTS REMOVED/LENS IMPLANTS,. MACULAR HOLE REPAIR ALEXIA EYES,ORIF RT ELBOW-HARDWARE LATER REMOVED Past Anesthesia/Blood Transfusion Reactions: No Reported Reaction Additional Past Anesthesia/Blood Transfusion Reaction / Comment(s): No hx blood transfusion Smoking Status: Former smoker - Past Family History Mother Family Medical History: No Reported History Medications and Allergies Home Medications Medication Instructions Recorded Confirmed Type Aspirin [Adult Low Dose Aspirin EC] 81 mg PO DAILY 06/12/19 08/25/21 History Atorvastatin [Lipitor] 20 mg PO HS 06/12/19 08/25/21 History Latanoprost/Pf [Latanoprost 0.005% 1 drop BOTH EYES HS 06/12/19 08/25/21 History Eye Drop] Varenicline [Chantix Continuing 1 mg PO DAILY 06/12/19 08/25/21 History Pack] Umeclidinium Brm/Vilanterol Tr 1 puff INHALATION DAILY 08/21/21 08/25/21 History [Anoro Ellipta 62.5-25 Mcg INH] Allergies Allergy/AdvReac Type Severity Reaction Status Date / Time bee venom protein (honey bee) Allergy Anaphylaxis Verified 08/25/21 05:55 Penicillins Allergy Rash/Hives Verified 08/25/21 05:55 Physical Exam Vitals: Vital Signs Temp Pulse Resp BP BP Pulse Ox 08/25/21 06:12 97.1 F L 70 16 127/79 143/88 98 Intake and Output 08/24/21 08/25/21 08/25/21 22:59 06:59 14:59 Intake Total 100 52 Output Total 2049 Balance Intake: IV 100 52 Output: Urine 550 Estimated Blood Loss 1500 Other: Weight 75.3 kg GENERAL EXAM: Alert, very pleasant, 76-year-old male, on room air with pulse ox of 98% comfortable in no apparent distress. HEAD: Normocephalic/atraumatic. EYES: Normal reaction of pupils, equal size. Conjunctiva pink, sclera white. NOSE: Clear with pink turbinates. THROAT: No erythema or exudates. NECK: No masses, no JVD, no thyroid enlargement, no adenopathy. CHEST: No chest wall deformity. Symmetrical expansion. Midsternal incision is clean dry and intact, 3 chest tubes including 2 mediastinal and right pleural chest tube with small amount of sanguinous output in the Pleur-evac's, AV wires in place LUNGS: Equal air entry with no crackles, wheeze, rhonchi or dullness. CVS: Regular rate and rhythm, normal S1 and S2, no gallops, no murmurs, no rubs ABDOMEN: Soft, nontender. No hepatosplenomegaly, normal bowel sounds, no guarding or rigidity. EXTREMITIES: No clubbing, no edema, no cyanosis, 2+ pulses and upper and lower extremities. MUSCULOSKELETAL: Muscle strength and tone normal. SPINE: No scoliosis or deformity SKIN: No rashes CENTRAL NERVOUS SYSTEM: Sedated and intubated No focal deficits, tone is normal in all 4 extremities. Results - Laboratory Findings ABG ABG pH 7.33 (7.35-7.45) L 08/25/21 12:38 ABG pCO2 47 mmHg (35-45) H 08/25/21 12:38 ABG pO2 146 mmHg (83-108) H 08/25/21 12:38 ABG O2 Saturation 99.0 % (94-97) H 08/25/21 12:38 Abnormal lab findings: Abnormal Labs 08/21/21 08/25/21 08/25/21 09:00 08:30 09:26 ABG pH ABG pCO2 ABG pO2 181 H 168 H ABG HCO3 ABG Total CO2 26 H 27 H ABG O2 Saturation 99.4 H 99.3 H ABG Hematocrit ABG Potassium ABG Ionized Calcium ABG Glucose 133 H Hemoglobin POC Glucose (mg/dL) Arterial Blood Potassium Arterial Blood Glucose 133 H Crossmatch See Detail 08/25/21 08/25/21 08/25/21 10:47 10:47 11:28 ABG pH 7.31 L ABG pCO2 51 H ABG pO2 >420 H 299 H 362 H ABG HCO3 26 H ABG Total CO2 26 H 27 H 25 H ABG O2 Saturation 99.8 H 99.6 H 99.8 H ABG Hematocrit 31 L 32 L 31 L ABG Potassium 5.4 H 5.1 H 5.4 H ABG Ionized Calcium 3.9 L 4.2 L 4.0 L ABG Glucose 132 H 130 H 131 H Hemoglobin 9.9 L 10.4 L 10.0 L POC Glucose (mg/dL) Arterial Blood Potassium 5.4 H 5.1 H 5.4 H Arterial Blood Glucose 132 H 130 H 131 H Crossmatch 08/25/21 08/25/21 12:38 13:08 ABG pH 7.33 L ABG pCO2 47 H ABG pO2 146 H ABG HCO3 ABG Total CO2 26 H ABG O2 Saturation 99.0 H ABG Hematocrit ABG Potassium ABG Ionized Calcium 4.4 L ABG Glucose 126 H Hemoglobin 12.2 L POC Glucose (mg/dL) 120 H Arterial Blood Potassium Arterial Blood Glucose 126 H Crossmatch - Diagnostic Findings Chest x-ray: report reviewed, image reviewed Assessment and Plan Plan: Assessment: #1. Symptomatic mitral valve regurgitation, status post mitral valve repair, exclusion of left atrial appendage, and intraoperative BECKY on 08/25/2021, postoperative day #0 #2. Routine postoperative ventilator management #3. Hyperlipidemia #4. Former smoker #5. History of cataracts #6. History of basal cell carcinoma with surgical removal Plan: Awaiting postoperative blood gases Chest x-ray is also pending Hemodynamic patient is stable No vasoactive drips Minimal drainage out of the chest tubes Continue close monitoring in the intensive care unit Anticipate quick wean and extubation Obtain weaning parameters once the patient is awake and proceed with extubation per protocol Follow-up chest x-ray and labs in the morning Breathing treatments every 4 hours while on the vent and the 4 times a day after extubation Incentive spirometer to the bedside I have personally seen and examined the patient, performed the documentation and the assessment and plan as written. Number of minutes spent on the visit: [20] Time with Patient: Greater than 30
[2021-08-25] MEDS: SODIUM CHLORIDE 0.9% 1,000 ML IV SCH (13:47)
[2021-08-25 13:49] LABS: Basophils % (A) 0 %; Eosinophils # (A) 0.1 k/uL (0-0.7); Eosinophils % (A) 1 %; HCT 36.9 % (39.0-53.0); HGB 12.8 gm/dL (13.0-17.5); Lymphocytes # (A) 0.6 k/uL (1.0-4.8); Lymphocytes % (A) 6 %; MCH 33.4 pg (25.0-35.0); MCHC 34.7 g/dL (31.0-37.0); MCV 96.2 fL (80.0-100.0); Mean Platelet Volume 8.3; Monocytes # (A) 0.6 k/uL (0-1.0); Monocytes % (A) 6 %; Neutrophils # (A) 9.2 k/uL (1.3-7.7); Neutrophils % (A) 87 %; Platelet Count 114 k/uL (150-450); RBC 3.83 m/uL (4.30-5.90); RDW 12.8 % (11.5-15.5); WBC 10.6 k/uL (3.8-10.6)
--- NOTE | 2021-08-25 13:54 | XR ---
EXAMINATION TYPE: XR chest 1V portable DATE OF EXAM: 08/25/2021 COMPARISON: Chest x-ray 08/21/2021 HISTORY: Postop cardiac surgery TECHNIQUE: Single frontal view of the chest is obtained. FINDINGS: Patient is post median sternotomy and left atrial appendage clip placement. Endotracheal t ube, NG tube, right jugular central venous catheter, right chest 2, median sternal drains are overlyi ng appropriate position, distal aspect of the NG tube is within the stomach over side-port is within the thoracic esophagus. Suspect a minimal right apical pneumothorax, patient is rotated. Cardiac medi astinal silhouette is within normal limits. Apical pleural thickening is again noted. There is no siz able effusion. Minimal patchy basilar density is noted at the lung bases. IMPRESSION: Satisfactory postoperative chest x-ray. NG tube as described. Minimal right apical pneum othorax.
[2021-08-25 13:59] LABS: Ionized Calcium 4.8 mg/dL (4.5-5.3)
[2021-08-25] MEDS ORDERED: INSULIN REGULAR 100 UNIT in SODIUM CHLORIDE 0.9% 100 ML IV SCH (14:00)
[2021-08-25 14:02] LABS: INR 1.1 (<1.2); Partial Thromboplastin Time 28.1 sec (22.0-30.0); Prothrombin Time 12.1 sec (9.0-12.0)
[2021-08-25 14:03] LABS: Glucose,Whole Blood 114 mg/dL (75-99)
[2021-08-25] MEDS: ALBUMIN HUMAN 5% 250 ML in EMPTY BAG 1 BAG IVPB PRN ×4 (14:03→21:04)
[2021-08-25 14:09] LABS: ALT 14 U/L (4-49); AST 38 U/L (17-59); African American GFR (CKD) >90 (>60 ml/min/1.73 sqM); Albumin 2.6 g/dL (3.5-5.0); Alkaline Phosphatase 33 U/L (38-126); Anion Gap 3 mmol/L; Blood Urea Nitrogen 16 mg/dL (9-20); Calcium 7.4 mg/dL (8.4-10.2); Carbon Dioxide 24 mmol/L (22-30); Chloride 109 mmol/L (98-107); Glucose 117 mg/dL (74-99); Magnesium 2.1 mg/dL (1.6-2.3); Non-African American GFR(CKD) >90 (>60 ml/min/1.73 sqM); Potassium 4.2 mmol/L (3.5-5.1); Sodium 136 mmol/L (137-145); Total Bilirubin 0.7 mg/dL (0.2-1.3); Total Protein 4.7 g/dL (6.3-8.2)
[2021-08-25 15:09] LABS: Glucose,Whole Blood 112 mg/dL (75-99)
[2021-08-25] MEDS: ONDANSETRON 4 MG/2 ML VIAL IVP PRN ×2 (15:32→22:37)
[2021-08-25 15:52] LABS: Basophils % (A) 0 %; Eosinophils # (A) 0.1 k/uL (0-0.7); Eosinophils % (A) 1 %; HCT 35.9 % (39.0-53.0); HGB 12.3 gm/dL (13.0-17.5); Lymphocytes # (A) 0.4 k/uL (1.0-4.8); Lymphocytes % (A) 4 %; MCH 32.8 pg (25.0-35.0); MCHC 34.1 g/dL (31.0-37.0); MCV 96.2 fL (80.0-100.0); Mean Platelet Volume 8.9; Monocytes # (A) 0.9 k/uL (0-1.0); Monocytes % (A) 8 %; Neutrophils # (A) 9.9 k/uL (1.3-7.7); Neutrophils % (A) 87 %; Platelet Count 108 k/uL (150-450); RBC 3.73 m/uL (4.30-5.90); RDW 12.8 % (11.5-15.5); WBC 11.4 k/uL (3.8-10.6)
[2021-08-25 16:06] LABS: Glucose,Whole Blood 112 mg/dL (75-99)
[2021-08-25] MEDS: IPRATROPIUM-ALBUTEROL 3 ML NEB INHALATION SCH ×2 (16:06→20:21)
--- NOTE | 2021-08-25 16:54 | P.CRDCN ---
History of Present Illness Consult date: 08/25/21 History of present illness: 76-year-old gentleman is brought in electively for mitral valve repair for severe symptomatic mitral regurgitation. As seen the patient in the ICU. He is intubated and on vent. Stable hemodynamically remains in sinus rhythm and hopefully will be extubated later this evening. Patient sees my associate Dr. Waldrop in the office in a regular basis and underwent workup 2 years ago that included a cardiac catheterization and transesophageal echo. He had normal coronaries and severe mitral regurgitation. I don't have any recent cardiac wo rkup on him. Patient remains in sinus rhythm. His history is significant for COPD and dyslipidemia. Review of systems: I'm not able to obtain review of systems from this patient who is intubated and underwent General: The patient is awake and alert, in no distress, and does not appear acutely ill. Skin: Skin is warm and dry and no rashes or lesions are noted. Eye: Pupils are equal, round and reactive to light, extra-ocular movements are intact; there is normal conjunctiva bilaterally. Ears, nose, mouth and throat: There are moist mucous membranes and no oral lesions. Neck: The neck is supple, there is no tenderness or JVD. Cardiovascular: There is a regular rate and rhythm. No murmur, rub or gallop is appreciated. Respiratory: Lungs are clear to auscultation, respirations are non-labored, breath sounds are equal. Gastrointestinal: Soft, non-distended, non-tender abdomen without masses or organomegaly noted. There is no rebound or guarding present. Bowel sounds are u nremarkable. Back: There is no tenderness to palpation in the midline. There is no obvious deformity. Musculoskeletal: , There is no pedal edema. There is no calf tenderness or swelling. Extremities: No edema. Vascular: Femoral pulse is normal. Posterior tibial pulses are normal .Dorsalis pedis is palpable. Neurological: Patient is intubated on vent sedated Assessment: Severe mitral regurgitation status post mitral valve repair Plan: Patient is intubated on vent hopefully will be extubated later this afternoon So far fairly uneventful perioperative course reviewed his medications Past Medical History Past Medical History: Cancer, COPD, Eye Disorder, GERD/Reflux, Hyperlipidemia Additional Past Medical History / Comment(s): Mitral Valve Insufficiency,GLAUCOMA BILAT Eyes,Abdominal Aortic Aneurysm,Hiatal Hernia,HX BASAL CELL SKIN CANCER ON FOREHEAD AND RT SIDE OF NECK approx 3-4 yrs ago. History of Any Multi-Drug Resistant Organisms: None Reported Past Surgical History: Appendectomy, Heart Catheterization Additional Past Surgical History / Comment(s): BECKY,COLONOSCOPY,SKIN CANCER REMOVED,. BILAT CATARACTS REMOVED/LENS IMPLANTS,. MACULAR HOLE REPAIR ALEXIA EYES,ORIF RT ELBOW-HARDWARE LATER REMOVED Past Anesthesia/Blood Transfusion Reactions: No Reported Reaction Additional Past Anesthesia/Blood Transfusion Reaction / Comment(s): No hx blood transfusion Smoking Status: Former smoker - Past Family History Mother Family Medical History: No Reported History Medications and Allergies Home Medications Medication Instructions Recorded Confirmed Type Aspirin [Adult Low Dose Aspirin EC] 81 mg PO DAILY 06/12/19 08/25/21 History Atorvastatin [Lipitor] 20 mg PO HS 06/12/19 08/25/21 History Latanoprost/Pf [Latanoprost 0.005% 1 drop BOTH EYES HS 06/12/19 08/25/21 History Eye Drop] Varenicline [Chantix Continuing 1 mg PO DAILY 06/12/19 08/25/21 History Pack] Umeclidinium Brm/Vilanterol Tr 1 puff INHALATION DAILY 08/21/21 08/25/21 History [Anoro Ellipta 62.5-25 Mcg INH] Allergies Allergy/AdvReac Type Severity Reaction Status Date / Time bee venom protein (honey bee) Allergy Anaphylaxis Verified 08/25/21 05:55 Penicillins Allergy Rash/Hives Verified 08/25/21 05:55 Physical Exam Vitals: Vital Signs Temp Pulse Pulse Resp BP BP BP 08/25/21 16:23 87 08/25/21 16:06 80 08/25/21 16:00 99.0 F 80 20 94/59 08/25/21 15:45 80 21 08/25/21 15:30 82 20 08/25/21 15:15 79 20 08/25/21 15:00 98.6 F 77 20 08/25/21 14:45 75 20 08/25/21 14:30 97.3 F L 75 20 08/25/21 14:15 78 20 08/25/21 14:00 96.8 F L 75 20 08/25/21 13:45 72 16 08/25/21 13:30 95.9 F L 74 16 08/25/21 13:15 16 08/25/21 06:12 97.1 F L 70 16 127/79 143/88 Pulse Ox 08/25/21 16:23 08/25/21 16:06 08/25/21 16:00 100 08/25/21 15:45 99 08/25/21 15:30 99 08/25/21 15:15 99 08/25/21 15:00 99 08/25/21 14:45 100 08/25/21 14:30 100 08/25/21 14:15 99 08/25/21 14:00 100 08/25/21 13:45 99 08/25/21 13:30 100 08/25/21 13:15 08/25/21 06:12 98 Intake and Output 08/25/21 08/25/21 08/25/21 06:59 14:59 22:59 Intake Total 100 420.976 553.889 Output Total 2450 210 Balance 100 -2029.024 343.889 Intake: IV 100 102 40 CO 50 40 Intake, IV Titration 318.976 513.889 Amount Albumin Human 5% 250 ml 250 250 In Empty Bag 1 bag @ 250 mls/hr IVPB Q1HR PRN Rx#: [id number] Amiodarone 360 mg In 66.6 Dextrose 5% in Water 200 ml @ 1 MG/MIN 34.533 mls/ hr IV .Q6H PRN Rx#: [id number] Dexmedetomidine/0.9% NaCl 3.389 (Pmx) 400 mcg In Empty Bag 1 bag @ Titrate IV . Q0M [facility] Rx#:[id number] Sodium Chloride 0.9% 1, 50 100 000 ml @ 50 mls/hr IV . Q20H [facility] Rx#:[id number] ceFAZolin 2 gm In Sodium 50 Chloride 0.9% 50 ml @ 100 mls/hr IVPB Q8HR [facility] Rx# :[id number] propofoL 1,000 mg In 18.976 43.900 Empty Bag 1 bag @ Titrate IV .Q0M [facility] Rx#: [id number] Output: Chest Tube Drainage 245 100 Mediastinal 185 70 Rt Pleural 60 30 Urine 705 110 Estimated Blood Loss 1500 Other: Voiding Method Indwelling Catheter Weight 75.3 kg ABP, PAP, CO, CI - Last 8 Hours Arterial Blood Pressure 116/56 Arterial Blood Pressure 110/52 Arterial Blood Pressure 107/56 Arterial Blood Pressure 104/53 Arterial Blood Pressure 114/60 Arterial Blood Pressure 110/55 Arterial Blood Pressure 119/59 Arterial Blood Pressure 133/66 Arterial Blood Pressure 149/75 Arterial Blood Pressure 130/66 Arterial Blood Pressure 139/80 Arterial Blood Pressure 118/53 Pulmonary Artery Pressure 31/18 Pulmonary Artery Pressure 31/16 Pulmonary Artery Pressure 27/15 Pulmonary Artery Pressure 28/15 Pulmonary Artery Pressure 34/19 Pulmonary Artery Pressure 28/15 Pulmonary Artery Pressure 30/15 Pulmonary Artery Pressure 32/16 Pulmonary Artery Pressure 32/16 Pulmonary Artery Pressure 30/14 Pulmonary Artery Pressure 23/15 Pulmonary Artery Pressure 28/5 Cardiac Output 5.3 Cardiac Output 4.4 Cardiac Output 5 Cardiac Output 3.8 Cardiac Index 2.7 Cardiac Index 2.2 Cardiac Index 2.5 Cardiac Index 1.9 Results 08/25/21 15:40 08/25/21 13:00 Cardiac Enzymes 08/25/21 Range/Units 13:00 AST 38 (17-59) U/L Coagulation 08/25/21 Range/Units 13:00 PT 12.1 H (9.0-12.0) sec APTT 28.1 (22.0-30.0) sec CBC 08/25/21 08/25/21 Range/Units 13:00 15:40 WBC 10.6 11.4 H (3.8-10.6) k/uL RBC 3.83 L 3.73 L (4.30-5.90) m/uL Hgb 12.8 L 12.3 L (13.0-17.5) gm/dL Hct 36.9 L 35.9 L (39.0-53.0) % Plt Count 114 L 108 L (150-450) k/uL Comprehensive Metabolic Panel 08/25/21 Range/Units 13:00 Sodium 136 L (137-145) mmol/L Potassium 4.2 (3.5-5.1) mmol/L Chloride 109 H (98-107) mmol/L Carbon Dioxide 24 (22-30) mmol/L BUN 16 (9-20) mg/dL Creatinine 0.62 L (0.66-1.25) mg/dL Glucose 117 H (74-99) mg/dL Calcium 7.4 L (8.4-10.2) mg/dL AST 38 (17-59) U/L ALT 14 (4-49) U/L Alkaline Phosphatase 33 L (38-126) U/L Total Protein 4.7 L (6.3-8.2) g/dL Albumin 2.6 L (3.5-5.0) g/dL Current Medications Generic Name Dose Route Start Last Admin Trade Name Freq PRN Reason Stop Dose Admin Hydrocodone Bitart/Acetaminophen 2 each 08/26/21 00:12 Hydrocodone/Apap 5-325mg 1 Each Tab PO Q4HR PRN Severe Pain Hydrocodone Bitart/Acetaminophen 1 each 08/26/21 00:12 Hydrocodone/Apap 5-325mg 1 Each Tab PO Q4HR PRN Moderate Pain Albuterol/Ipratropium 3 ml 08/25/21 12:57 Ipratropium-Albuterol 3 Ml Neb INHALATION RT-Q2H PRN Shortness Of Breath Or Wheezing Albuterol/Ipratropium 3 ml 08/25/21 16:00 08/25/21 16:06 Ipratropium-Albuterol 3 Ml Neb INHALATION 08/25/21 20:30 3 ml RT-Q4H [facility] Administration Albuterol/Ipratropium 3 ml 08/26/21 08:00 Ipratropium-Albuterol 3 Ml Neb INHALATION RT-QID [facility] Aspirin 325 mg 08/26/21 09:00 Aspirin 325 Mg Tab PO DAILY [facility] Atorvastatin Calcium 40 mg 08/26/21 09:00 Atorvastatin 40 Mg Tab PO DAILY [facility] Benzocaine/Menthol 1 each 08/25/21 12:57 Benzocaine/Menthol Lozeng 1 Each Lozenge MUCOUS MEM Q2H PRN Sore Throat Bisacodyl 10 mg 08/26/21 09:00 Bisacodyl 10 Mg Supp RECTAL DAILY PRN Constipation Clopidogrel Bisulfate 75 mg 08/26/21 09:00 Clopidogrel 75 Mg Tab PO DAILY [facility] Heparin Sodium (Porcine) 5,000 unit 08/25/21 16:00 Heparin Sodium,Porcine/Pf 5,000 Unit/0.5 Ml Syringe SQ Q8HR [facility] Hydralazine HCl 10 mg 08/25/21 12:57 Hydralazine Hcl 20 Mg/Ml 1 Ml Vial IVP Q1H PRN Blood Pressure - High Clevidipine 25 mg/ IV Solution 50 mls @ 2 mls/hr 08/25/21 12:57 03/07/22 14:35 IV Not Given .Q24H [facility] Protocol 1 MG/HR Amiodarone HCl 150 mg/ 103 mls @ 618 mls/hr 08/25/21 12:57 Dextrose/Water IV .Q10M PRN A.FIB/FLUTTER Protocol Amiodarone HCl 360 mg/ 207.2 mls @ 34.533 mls/hr 08/25/21 12:57 08/25/21 14:04 Dextrose/Water IV 1 mg/min .Q6H PRN 34.533 mls/hr A.FIB/FLUTTER Administration Protocol 1 MG/MIN Amiodarone HCl 450 mg/ 250 mls @ 16.667 mls/hr 08/25/21 12:57 Dextrose/Water IV .Q15H PRN A.FIB/FLUTTER Protocol 0.5 MG/MIN Albumin Human 250 ml/ IV 250 mls @ 250 mls/hr 08/25/21 12:57 08/25/21 15:11 Solution IVPB 08/27/21 12:58 250 mls/hr Q1HR PRN Administration For Volume Protocol Propofol 1,000 mg/ IV Solution 100 mls @ 0 mls/hr 08/25/21 12:57 08/25/21 16:40 IV 10 mcg/kg/min .Q0M [facility] 4.518 mls/hr Titration Protocol Titrate Dexmedetomidine HCl 400 mcg/ 100 mls @ 0 mls/hr 08/25/21 13:30 08/25/21 16:49 IV Solution IV 08/26/21 13:31 0.5 mcg/kg/hr .Q0M [facility] 9.413 mls/hr Titration Protocol Titrate Acetaminophen 1,000 mg/ IV 100 mls @ 400 mls/hr 08/25/21 18:00 Solution IVPB 08/26/21 00:14 Q6HR [facility] Cefazolin Sodium 2 gm/ Sodium 50 mls @ 100 mls/hr 08/25/21 16:00 08/25/21 15:57 Chloride IVPB 08/26/21 08:29 100 mls/hr Q8HR [facility] Administration Calcium Gluconate 2 gm/ Sodium 120 mls @ 100 mls/hr 08/25/21 12:57 Chloride IVPB 08/26/21 23:00 ONCE PRN Ionized Calcium less than 4.4 Insulin Human Regular 100 unit 101 mls @ 0 mls/hr 08/25/21 14:00 / Sodium Chloride IV .Q0M [facility] Protocol Per Protocol Sodium Chloride 1,000 mls @ 50 mls/hr 08/25/21 12:57 08/25/21 13:47 Saline 0.9% IV 50 mls/hr .Q20H [facility] Administration Latanoprost 1 drops 08/25/21 21:00 Latanoprost 0.005% Ophth Drops 2.5 Ml Btl BOTH EYES HS [facility] Magnesium Hydroxide 2,400 mg 08/26/21 09:00 Magnesium Hydroxide 2,400 Mg/10 Ml Cup PO BID PRN Constipation Metoclopramide HCl 10 mg 08/25/21 12:57 Metoclopramide 5 Mg/Ml 2 Ml Vial IVP Q4H PRN Nausea And Vomiting Metoprolol Tartrate 12.5 mg 08/26/21 09:00 Metoprolol Tartrate 12.5 Mg Tab PO BID [facility] Miscellaneous Information 1 each 08/25/21 12:57 Potassium Replacement Protocol 1 Each Misc MISCELLANE DAILY PRN Per Protocol Protocol Miscellaneous Information 1 each 08/25/21 12:57 Magnesium Replacement Protocol 1 Each Misc MISCELLANE DAILY PRN Per Protocol Protocol Miscellaneous Information 1 each 08/25/21 12:57 Phosphorus Replacement Protoco 1 Each Misc MISCELLANE DAILY PRN Per Protocol Protocol Morphine Sulfate 2 mg 08/25/21 12:57 08/25/21 15:32 Morphine Sulfate 2 Mg/Ml Syringe IVP 2 mg Q2H PRN Administration Severe Pain Ondansetron HCl 4 mg 08/25/21 12:57 08/25/21 15:32 Ondansetron 4 Mg/2 Ml Vial IVP 4 mg Q6HR PRN Administration Nausea And Vomiting Oxycodone HCl 10 mg 08/25/21 12:57 Oxycodone Hcl 5 Mg Tab PO 08/26/21 00:12 Q4H PRN Severe Pain Oxycodone HCl 5 mg 08/25/21 12:57 Oxycodone Hcl 5 Mg Tab PO 08/26/21 00:12 Q4H PRN Moderate Pain Pantoprazole Sodium 40 mg 08/26/21 09:00 Pantoprazole 40 Mg/10 Ml Vial IVP DAILY [facility] Senna/Docusate Sodium 2 each 08/26/21 21:00 Sennosides-Docusate Sodium 1 Each Tab PO HS [facility] Sodium Chloride 10 ml 08/25/21 21:00 Sodium Chloride 0.9% Flush 10 Ml Syringe IV BID [facility] Intake and Output 08/25/21 08/25/21 08/25/21 06:59 14:59 22:59 Intake Total 100 420.976 553.889 Output Total 2450 210 Balance 100 -2029.024 343.889 Intake: IV 100 102 40 CO 50 40 Intake, IV Titration 318.976 513.889 Amount Albumin Human 5% 250 ml 250 250 In Empty Bag 1 bag @ 250 mls/hr IVPB Q1HR PRN Rx#: [id number] Amiodarone 360 mg In 66.6 Dextrose 5% in Water 200 ml @ 1 MG/MIN 34.533 mls/ hr IV .Q6H PRN Rx#: [id number] Dexmedetomidine/0.9% NaCl 3.389 (Pmx) 400 mcg In Empty Bag 1 bag @ Titrate IV . Q0M [facility] Rx#:[id number] Sodium Chloride 0.9% 1, 50 100 000 ml @ 50 mls/hr IV . Q20H [facility] Rx#:[id number] ceFAZolin 2 gm In Sodium 50 Chloride 0.9% 50 ml @ 100 mls/hr IVPB Q8HR [facility] Rx# :[id number] propofoL 1,000 mg In 18.976 43.900 Empty Bag 1 bag @ Titrate IV .Q0M [facility] Rx#: [id number] Output: Chest Tube Drainage 245 100 Mediastinal 185 70 Rt Pleural 60 30 Urine 705 110 Estimated Blood Loss 1500 Other: Voiding Method Indwelling Catheter Weight 75.3 kg 08/25/21 15:40 08/25/21 13:00
[2021-08-25 17:16] LABS: Glucose,Whole Blood 143 mg/dL (75-99)
[2021-08-25] MEDS: ACETAMINOPHEN IV (For NPO) 1,000 MG in EMPTY BAG 1 BAG IVPB SCH ×2 (17:28→23:21)
[2021-08-25] MEDS: HEPARIN SODIUM,PORCINE/PF 5,000 UNIT/0.5 ML SYRINGE SQ SCH ×2 (17:35→23:24)
[2021-08-25 18:06] LABS: Glucose,Whole Blood 155 mg/dL (75-99)
--- NOTE | 2021-08-25 18:10 | OP ---
OPERATIVE REPORT DATE OF SURGERY: 08/25/2021 SURGEON: Dr. Deepali Amos. ASSISTANTS: 1. CINDY Shanks. 2. KIANNA Davies. PREOPERATIVE DIAGNOSIS: 1. Severe mitral valve regurgitation. 2. Myxomatous degeneration. 3. Preserved left ventricular function. 4. Chronic obstructive pulmonary disease with tobacco abuse. 5. Hyperlipidemia. 6. History of prostate cancer. POSTOPERATIVE DIAGNOSIS: 1. 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 PROCEDURE: 1. Complex mitral valve repair consisting of construction of 6 NeoChords to P2 segment along with posterior annuloplasty using an incomplete AnnuloFlex 36 mm band. 2. Exclusion of left atrial appendage using a 35 mm AtriClip. 3. Intraoperative transesophageal echocardiogram and epiaortic scanning. INDICATION FOR SURGERY: The patient is a 76-year-old gentleman who was seen as an outpatient a couple of years ago for severe mitral valve regurgitation that was compensated with normal left ventricular function. Patient's surgery had to be postponed during the COVID pandemic and eventually resurfaced lately. His cardiac catheterization was almost two years old and it was negative at that time. However, we elected to perform a stress test that was negative and decision was made not to repeat the cardiac catheterization. His echo showed preserved left ventricular function with a known P2 prolapse and severe mitral valve regurgitation. Patient stopped smoking around one month ago and is now taken for elective mitral valve repair, possible replacement. Risks, benefits and alternative were discussed with him and his . They understood them and agreed to proceed. DESCRIPTION OF THE PROCEDURE: The patient was in supine position in the preoperative holding area. A [place]-Malinda catheter was inserted as well as a right radial arterial line. He had normal PA pressure and cardiac index of 2.4. Subsequently he was brought to the operating room, where general endotracheal anesthesia was induced uneventfully. He received 2 grams of cefazolin intravenously. A Quinones catheter was inserted. The chest, abdomen and both lower extremities were prepped and draped using ChloraPrep. Ioban was used to cover the skin. Transesophageal echocardiogram confirmed the preoperative finding of P2 prolapse with severe mitral valve regurgitation and high reduction of JUDD in view of thick septum, a coaptation distance to the septum that was around 1.9 cm, and an aortomitral angle that was around 100 degrees and a high posterior leaflet. There was mild tricuspid valve regurgitation and no tricuspid annular dilatation. Midline sternotomy was performed and no bone wax was used. The left pleura remained intact. The right pleura was inadvertently opened and drained with a 19-[place] Jacek drain. A Calista mitral retractor was used. Mediastinal fat was transected between two ties and epiaortic scanning revealed normal ascending aorta. Pericardium was opened in an inverted T-fashion and a pericardial cradle was created. Findings included a normal soft aorta that was a bit elongated and a normal-sized heart with normal-looking coronary vessels with no visible plaques or palpable calcifications. After systemic heparinization and after placement of respective pledgeted pursestrings, aortic cannulation in the distal ascending aorta with a 21-[place] Softflow cannula, direct SVC cannulation with a 28-[place] right-angle cannula and IVC cannulation at the junction of the right atrium with a 32-[place] straight cannula were performed. Antegrade as well as retrograde cardioplegia catheters were placed. Cardiopulmonary bypass was initiated and patient's temperature was allowed to drift down to 34 degrees Celsius. Subsequently the aorta was clamped, and during aortic clamping myocardial protection was achieved with initial dose of 800 mL of antegrade cold blood cardioplegia with adequate arrest at 200 mL followed by 400 mL of retrograde cold blood cardioplegia. All subsequent doses were given retrograde at 15-minute intervals. We started by excluding the left atrial appendage by deploying a 35 mm AtriClip at its base. Subsequently the interatrial groove was developed and a standard left transverse atriotomy was performed. Exploration of the mitral valve revealed a myxomatous valve with an obvious high posterior P2 segment that was prolapsing with an elongated cord without ruptured cord. The P1 and P3 were a bit diminutive with no excessive tissue at that level. For that reason, I elected to base the repair on a NeoChord rather than resection. Two pairs of NeoChord were passed consisting of 4-0 Mcwilliams-Rodney passed in the anterolateral papillary muscle, and one pair was passed into the posteromedial papillary muscle head in fibrotic areas. Those three pairs of cord were used to suspend the coaptation zone of P2, and the length was intentionally shortened to around 1.5 cm in view of the potential high risk of JUDD. We had passed 10 TiCron 2-0 sutures from trigone to trigone posteriorly initially to help us analyze the valve. Testing at this point before tying the Mcwilliams-Rodney showed an excellent seal. With that, a 36 mm posterior band AnnuloFlex, which was the biggest band that we had, was selected and all the sutures were passed in it symmetrically and it was seated nicely. The needles were cut and the suture tied using the Corknot device. Testing of the valve again appeared to show an excellent seal. With that, I ended up tying all three pairs of Mcwilliams-Rodney 4-0 NeoChords with 12 knots each. Testing for the last time revealed a good seal. CO2 was flowing over the field as long as the left atrium was open. Rewarming was started as we closed the left atriotomy using Prolene 4-0 pledgeted on each corner and meeting in the midline. De-airing maneuvers were done before fully closing the atrium. We gave around 600 mL of warm blood via the retrograde route. Patient was placed in Trendelenburg position and de-airing maneuvers were followed before we unclamped the aorta. The patient regained spontaneous sinus rhythm. However, he was in third-degree AV block. After around 15 minutes of reperfusion, I established AV pacing via two monopolar atrial pacing wires, one affixed to the pursestring of the retrograde site, and the other one affixed to the right atrial appendage, and a bipolar ventricular pacing wire was driven via the inferior aspect of the right ventricle. BECKY at this point after weaning off cardiopulmonary bypass without any support showed excellent seal with no mitral valve regurgitation and no JUDD. There was a very low gradient across the valve. De-airing was adequate. With that, all pump suckers were stopped, then decannulation followed after giving test- dose and full-dose protamine. The antegrade site, aortic cannulation site, and the retrograde site all needed to be reinforced with [id number] Prolene. Two 19- [place] Jacek drains were left substernally. Pericardium was approximated over the heart and the aorta. After ensuring adequate hemostasis, hemodynamics and after correct sponge, instrument and needle counts, the sternum was closed using 5 [id number] [place] cables after interposing Fibrillar between the sternal edges. Thorough irrigation with cefazolin followed. The rest of the closure proceeded in layers. Skin glue was applied. Patient did not receive any blood bank product but received 550 mL of Cell Saver blood. He was transferred to the ICU in stable condition, on no drips, with normal sinus rhythm with normal conduction at this point with normal hemodynamics and normal PA pressure and cardiac index of 2.4. JESICA / QUOC: [id number] /
[2021-08-25] MEDS: KETOROLAC 30 MG/ML 1 ML VIAL IVP SCH ×2 (18:36→23:24)
[2021-08-25 18:51] LABS: ABG Base Excess -2.4 mmol/L; ABG HCO3 22 mmol/L (21-25); ABG Oxygen Saturation 98.8 % (94-97); ABG PCO2 35 mmHg (35-45); ABG PH 7.41 (7.35-7.45); ABG PO2 139 mmHg (83-108); ABG TCO2 23 mmol/L (19-24); Allen Test Performed? Yes
[2021-08-25 19:05] LABS: Glucose,Whole Blood 154 mg/dL (75-99)
[2021-08-25 19:22] LABS: Basophils % (A) 0 %; Eosinophils % (A) 0 %; HCT 34.6 % (39.0-53.0); HGB 11.7 gm/dL (13.0-17.5); Lymphocytes # (A) 0.3 k/uL (1.0-4.8); Lymphocytes % (A) 3 %; MCV 97.1 fL (80.0-100.0); Mean Platelet Volume 9.1; Monocytes # (A) 0.7 k/uL (0-1.0); Monocytes % (A) 7 %; Neutrophils # (A) 9.1 k/uL (1.3-7.7); Neutrophils % (A) 90 %; Platelet Count 109 k/uL (150-450); RBC 3.56 m/uL (4.30-5.90); RDW 13.3 % (11.5-15.5); WBC 10.2 k/uL (3.8-10.6)
[2021-08-25 19:55] LABS: Glucose,Whole Blood 169 mg/dL (75-99)
[2021-08-25] MEDS: LATANOPROST 0.005% OPHTH DROPS 2.5 ML BTL BOTH EYES SCH (20:10)
[2021-08-25] MEDS: METOCLOPRAMIDE 5 MG/ML 2 ML VIAL IVP PRN (20:10)
[2021-08-25 21:04] LABS: Glucose,Whole Blood 151 mg/dL (75-99)
[2021-08-25 22:00] LABS: Glucose,Whole Blood 149 mg/dL (75-99)
[2021-08-25 23:02] LABS: Glucose,Whole Blood 143 mg/dL (75-99)
[2021-08-26 00:04] LABS: Glucose,Whole Blood 136 mg/dL (75-99)
[2021-08-26] MEDS ORDERED: HYDROcodone/APAP 5-325MG 1 EACH TAB PO PRN (00:12)
[2021-08-26 01:05] LABS: Glucose,Whole Blood 131 mg/dL (75-99)
[2021-08-26 02:05] LABS: Glucose,Whole Blood 121 mg/dL (75-99)
[2021-08-26 03:01] LABS: Glucose,Whole Blood 120 mg/dL (75-99)
[2021-08-26 04:04] LABS: Glucose,Whole Blood 119 mg/dL (75-99)
[2021-08-26 04:15] LABS: Basophils % (A) 0 %; Eosinophils % (A) 0 %; HCT 34.1 % (39.0-53.0); HGB 11.8 gm/dL (13.0-17.5); Lymphocytes # (A) 0.6 k/uL (1.0-4.8); Lymphocytes % (A) 4 %; MCH 33.3 pg (25.0-35.0); MCHC 34.7 g/dL (31.0-37.0); MCV 95.9 fL (80.0-100.0); Mean Platelet Volume 10.6; Monocytes # (A) 1.1 k/uL (0-1.0); Monocytes % (A) 9 %; Neutrophils # (A) 11.3 k/uL (1.3-7.7); Neutrophils % (A) 86 %; Platelet Count 112 k/uL (150-450); RBC 3.56 m/uL (4.30-5.90); RDW 12.9 % (11.5-15.5); WBC 13.1 k/uL (3.8-10.6)
[2021-08-26 04:40] LABS: Ionized Calcium 4.6 mg/dL (4.5-5.3)
[2021-08-26 04:50] LABS: ALT 15 U/L (4-49); AST 47 U/L (17-59); African American GFR (CKD) >90 (>60 ml/min/1.73 sqM); Albumin 3.6 g/dL (3.5-5.0); Alkaline Phosphatase 29 U/L (38-126); Anion Gap 9 mmol/L; Blood Urea Nitrogen 18 mg/dL (9-20); Calcium 7.6 mg/dL (8.4-10.2); Carbon Dioxide 20 mmol/L (22-30); Chloride 108 mmol/L (98-107); Glucose 113 mg/dL (74-99); Magnesium 2.1 mg/dL (1.6-2.3); Non-African American GFR(CKD) >90 (>60 ml/min/1.73 sqM); Potassium 3.6 mmol/L (3.5-5.1); Sodium 137 mmol/L (137-145); Total Bilirubin 0.9 mg/dL (0.2-1.3); Total Protein 5.6 g/dL (6.3-8.2)
[2021-08-26 05:08] LABS: Glucose,Whole Blood 109 mg/dL (75-99)
[2021-08-26] MEDS: METOCLOPRAMIDE 5 MG/ML 2 ML VIAL IVP PRN (06:00)
[2021-08-26 06:24] LABS: Glucose,Whole Blood 157 mg/dL (75-99)
[2021-08-26] MEDS: ALBUMIN HUMAN 5% 250 ML in EMPTY BAG 1 BAG IVPB PRN ×3 (06:25→09:26)
[2021-08-26] MEDS: KETOROLAC 30 MG/ML 1 ML VIAL IVP SCH (06:39)
[2021-08-26 07:17] LABS: Glucose,Whole Blood 120 mg/dL (75-99)
[2021-08-26] MEDS ORDERED: CALCIUM GLUCONATE 2 GM in SODIUM CHLORIDE 0.9% 100 ML IVPB ONE (08:00)
[2021-08-26 08:26] LABS: Glucose,Whole Blood 119 mg/dL (75-99)
[2021-08-26] MEDS: IPRATROPIUM-ALBUTEROL 3 ML NEB INHALATION SCH ×4 (08:27→20:30)
--- NOTE | 2021-08-26 08:32 | XR ---
EXAMINATION TYPE: XR chest 1V portable DATE OF EXAM: 08/26/2021 Comparison: 08/25/2021 Clinical History: 76-year-old male Post Operative Cardiac Surgery Findings: Right IJ [place]-Malinda catheter tip in the proximal right main pulmonary artery. Mediastinal drains and e picardial pacer leads are noted. Some patchy left basilar opacity. Right basilar chest tube. There ap pears to be a small 9 mm right apical pneumothorax versus 7 mm, previously. Questionable trace left a pical pleural edge versus summation artifact. Impression: 1. A trace 9 mm right apical pneumothorax versus 7 mm, previously. 2. Either summation artifact or a trace left apical pneumothorax measuring 6 mm. 3. Patchy left basilar retrocardiac atelectasis has increased.
[2021-08-26] MEDS ORDERED: MAGNESIUM HYDROXIDE 2,400 MG/10 ML CUP PO PRN (09:00)
[2021-08-26] MEDS ORDERED: bisacodyL 10 MG SUPP RECTAL PRN (09:00)
[2021-08-26] MEDS ORDERED: PANTOPRAZOLE 40 MG/10 ML VIAL IVP SCH (09:00)
[2021-08-26] MEDS ORDERED: ASPIRIN 325 MG TAB PO SCH (09:00)
--- NOTE | 2021-08-26 09:15 | P.PN ---
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 Previous history of tobacco dependence with mild COPD, remote history of pneumonia, peripheral arterial disease with history of abdominal aortic aneurysm, hiatal hernia, hyperlipidemia, basal cell skin cancer approximately 3-4 years ago. Vaccinated and boosted against Covid POD #1 complex mitral valve repair consisting of construction of 6 Primo cords to P2 segment along with posterior annuloplasty using an incomplete AnnuloFlex 36 mm band, exclusion of the left atrial appendage using a 35 mm AtriClip, intraoperative transesophageal echocardiogram and epi-aortic scanning Postoperative acute blood loss anemia and thrombocytopenia, expected given hemodilution and cardiopulmonary bypass pump The patient was seen and examined this morning with Dr. Shankar sitting up in a recliner in no acute distress. Was successfully extubated last night at 18:58. States post surgical pain is mostly controlled with current medication regimen, denies shortness of breath. Currently atrially paced with underlying rhythm accelerated junctional in the low to mid 60s. Was on amiodarone for A. fib prophylaxis which was stopped this morning. Patient did have a couple of episodes of small amount coffee-ground appearing emesis. Right internal jugular Ozone/Cordis, right radial arterial line, mediastinal/right pleural chest tubes all remaining present. No other new concerns. Objective - Vital Signs Vital signs: Vital Signs Temp 99.5 F 08/25/21 19:00 Pulse 80 08/26/21 08:29 Resp 15 08/26/21 07:00 BP 94/57 08/26/21 07:00 Pulse Ox 96 08/26/21 07:00 Intake & Output 08/25/21 08/26/21 08/26/21 18:59 06:59 18:59 Intake Total 4071.556 0183.063 609.382 Output Total 2945 779 62 Balance -1652.050 923.063 547.382 Weight 76.8 kg Intake: IV 182 1585.70 605.67 0.9 NaCl- 550 50 ACETAMINOPHEN IV (For NPO 100 ) 1,000 mg In Empty Bag 1 bag @ 400 mls/hr IVPB Q6HR [facility] Rx#:[id number] Albumin 250 500 Amiodarone 450 mg In 166.70 16.67 Dextrose 5% in Water 250 ml @ 0.5 MG/MIN 16.667 mls/hr IV .Q15H PRN Rx#: [id number] CO/CI Injectate 130 370 30 Pressure Bag 99 9 ceFAZolin 2 gm In Sodium 50 Chloride 0.9% 50 ml @ 100 mls/hr IVPB Q8HR [facility] Rx# :[id number] Intake, IV Titration 1110.950 116.363 3.712 Amount ACETAMINOPHEN IV (For NPO 100 ) 1,000 mg In Empty Bag 1 bag @ 400 mls/hr IVPB Q6HR [facility] Rx#:[id number] Albumin Human 5% 250 ml 500 In Empty Bag 1 bag @ 250 mls/hr IVPB Q1HR PRN Rx#: [id number] Amiodarone 360 mg In 133.2 33.3 Dextrose 5% in Water 200 ml @ 1 MG/MIN 34.533 mls/ hr IV .Q6H PRN Rx#: [id number] Dexmedetomidine/0.9% NaCl 12.991 (Pmx) 400 mcg In Empty Bag 1 bag @ Titrate IV . Q0M [facility] Rx#:[id number] Insulin Regular 100 unit 33.063 3.712 In Sodium Chloride 0.9% 100 ml @ Per Protocol IV .Q0M [facility] Rx#:[id number] Sodium Chloride 0.9% 1, 250 50 000 ml @ 50 mls/hr IV . Q20H [facility] Rx#:[id number] ceFAZolin 2 gm In Sodium 50 Chloride 0.9% 50 ml @ 100 mls/hr IVPB Q8HR [facility] Rx# :[id number] propofoL 1,000 mg In 64.759 Empty Bag 1 bag @ Titrate IV .Q0M [facility] Rx#: [id number] Output: Chest Tube Drainage 475 290 20 Mediastinal 335 170 0 Rt Pleural 140 120 20 Urine 970 439 42 Emesis 50 Estimated Blood Loss 1500 Other: Voiding Method Indwelling Catheter Indwelling Catheter ABP, PAP, CO, CI - Last Documented Arterial Blood Pressure 116/49 Pulmonary Artery Pressure 18/7 Cardiac Output 4.7 Cardiac Index 2.4 - Exam CONSTITUTIONAL: Appears comfortable, cooperative, no acute distress RESPIRATORY: Lungs sounds diminished bilaterally. Respirations even, nonlabored. Currently on 4 L nasal cannula with oxygen saturation 94%. Able to achieve 1500 mL on incentive spirometry. Strong nonproductive cough. CARDIOVASCULAR: S1, S2 present. Regular rate and rhythm, atrially paced with underlying rhythm accelerated junctional. Sternum stable. Palpable peripheral pulses bilaterally. No edema present. No calf pain or tenderness noted. Heart hugger in place with patient demonstrating appropriate use. Antiembolism sto ckings, SCDs present. GASTROINTESTINAL: Abdomen soft, nontender, nondistended. Hypoactive bowel so unds present 4 quadrants. Tolerating minimal clear liquids. Positive belching, negative flatus GENITOURINARY: Quinones present draining clear, yellow urine. Output overnight 20-75 mL per hour INTEGUMENTARY: Skin is warm and dry with evidence of good perfusion. Anterior chest incision well approximated and covered with dry intact dressing NEUROLOGIC: Cranial nerves II through XII intact MUSKULOSKELETAL: Able to move all extremities, strength equal bilaterally, gait normal PSYCHIATRIC: Alert and oriented to person place and time, appropriate affect, intact judgment and insight INVASIVE LINES AND TUBES: Mediastinal/right pleural chest tubes present and connected to wall suction, no air leaks present. Mediastinal tube with 80 mL serosanguineous drainage overnight, 470 mL since surgery. Right pleural chest tube with 20 mL serosanguineous drainage overnight, 290 mL since surgery. A/V epicardial pacemaker wires present, connected to generator, AAI mode with rate 80 bpm. Right internal jugular Ozone/Cordis, right radial arterial line present. Last CO/CI 4.7/2.4, PA 25/10, CVP 7. - Allied health notes Allied health notes reviewed: nursing - Labs CBC & Chem 7: 08/26/21 04:00 08/26/21 04:00 Labs: Abnormal Lab Results - Last 24 Hours (Table) 08/21/21 08/25/21 08/25/21 Range/Units 09:00 08:30 09:26 WBC (3.8-10.6) k/uL RBC (4.30-5.90) m/uL Hgb (13.0-17.5) gm/dL Hct (39.0-53.0) % Plt Count (150-450) k/uL Neutrophils # (1.3-7.7) k/uL Lymphocytes # (1.0-4.8) k/uL Monocytes # (0-1.0) k/uL PT (9.0-12.0) sec ABG pH (7.35-7.45) ABG pCO2 (35-45) mmHg ABG pO2 181 H 168 H (83-108) mmHg ABG HCO3 (21-25) mmol/L ABG Total CO2 26 H 27 H (19-24) mmol/L ABG O2 Saturation 99.4 H 99.3 H (94-97) % ABG Hematocrit (34.0-46.0) % ABG Potassium (3.4-4.5) mmol/L ABG Ionized Calcium (4.5-5.3) mg/dL ABG Glucose 133 H (75-99) mg/dL Hemoglobin (13.0-17.5) gm/dL Sodium (137-145) mmol/L Chloride (98-107) mmol/L Carbon Dioxide (22-30) mmol/L Creatinine (0.66-1.25) mg/dL Glucose (74-99) mg/dL POC Glucose (mg/dL) (75-99) mg/dL Calcium (8.4-10.2) mg/dL Alkaline Phosphatase (38-126) U/L Total Protein (6.3-8.2) g/dL Albumin (3.5-5.0) g/dL Arterial Blood Potassium (3.4-4.5) mmol/L Arterial Blood Glucose 133 H (75-99) mg/dL Crossmatch See Detail 08/25/21 08/25/21 08/25/21 Range/Units 10:47 10:47 11:28 WBC (3.8-10.6) k/uL RBC (4.30-5.90) m/uL Hgb (13.0-17.5) gm/dL Hct (39.0-53.0) % Plt Count (150-450) k/uL Neutrophils # (1.3-7.7) k/uL Lymphocytes # (1.0-4.8) k/uL Monocytes # (0-1.0) k/uL PT (9.0-12.0) sec ABG pH 7.31 L (7.35-7.45) ABG pCO2 51 H (35-45) mmHg ABG pO2 >420 H 299 H 362 H (83-108) mmHg ABG HCO3 26 H (21-25) mmol/L ABG Total CO2 26 H 27 H 25 H (19-24) mmol/L ABG O2 Saturation 99.8 H 99.6 H 99.8 H (94-97) % ABG Hematocrit 31 L 32 L 31 L (34.0-46.0) % ABG Potassium 5.4 H 5.1 H 5.4 H (3.4-4.5) mmol/L ABG Ionized Calcium 3.9 L 4.2 L 4.0 L (4.5-5.3) mg/dL ABG Glucose 132 H 130 H 131 H (75-99) mg/dL Hemoglobin 9.9 L 10.4 L 10.0 L (13.0-17.5) gm/dL Sodium (137-145) mmol/L Chloride (98-107) mmol/L Carbon Dioxide (22-30) mmol/L Creatinine (0.66-1.25) mg/dL Glucose (74-99) mg/dL POC Glucose (mg/dL) (75-99) mg/dL Calcium (8.4-10.2) mg/dL Alkaline Phosphatase (38-126) U/L Total Protein (6.3-8.2) g/dL Albumin (3.5-5.0) g/dL Arterial Blood Potassium 5.4 H 5.1 H 5.4 H (3.4-4.5) mmol/L Arterial Blood Glucose 132 H 130 H 131 H (75-99) mg/dL Crossmatch 08/25/21 08/25/21 08/25/21 Range/Units 12:38 13:00 13:00 WBC (3.8-10.6) k/uL RBC 3.83 L (4.30-5.90) m/uL Hgb 12.8 L (13.0-17.5) gm/dL Hct 36.9 L (39.0-53.0) % Plt Count 114 L (150-450) k/uL Neutrophils # 9.2 H (1.3-7.7) k/uL Lymphocytes # 0.6 L (1.0-4.8) k/uL Monocytes # (0-1.0) k/uL PT 12.1 H (9.0-12.0) sec ABG pH 7.33 L (7.35-7.45) ABG pCO2 47 H (35-45) mmHg ABG pO2 146 H (83-108) mmHg ABG HCO3 (21-25) mmol/L ABG Total CO2 26 H (19-24) mmol/L ABG O2 Saturation 99.0 H (94-97) % ABG Hematocrit (34.0-46.0) % ABG Potassium (3.4-4.5) mmol/L ABG Ionized Calcium 4.4 L (4.5-5.3) mg/dL ABG Glucose 126 H (75-99) mg/dL Hemoglobin 12.2 L (13.0-17.5) gm/dL Sodium (137-145) mmol/L Chloride (98-107) mmol/L Carbon Dioxide (22-30) mmol/L Creatinine (0.66-1.25) mg/dL Glucose (74-99) mg/dL POC Glucose (mg/dL) (75-99) mg/dL Calcium (8.4-10.2) mg/dL Alkaline Phosphatase (38-126) U/L Total Protein (6.3-8.2) g/dL Albumin (3.5-5.0) g/dL Arterial Blood Potassium (3.4-4.5) mmol/L Arterial Blood Glucose 126 H (75-99) mg/dL Crossmatch 08/25/21 08/25/21 08/25/21 Range/Units 13:00 13:08 13:30 WBC (3.8-10.6) k/uL RBC (4.30-5.90) m/uL Hgb (13.0-17.5) gm/dL Hct (39.0-53.0) % Plt Count (150-450) k/uL Neutrophils # (1.3-7.7) k/uL Lymphocytes # (1.0-4.8) k/uL Monocytes # (0-1.0) k/uL PT (9.0-12.0) sec ABG pH 7.29 L (7.35-7.45) ABG pCO2 51 H (35-45) mmHg ABG pO2 390 H (83-108) mmHg ABG HCO3 (21-25) mmol/L ABG Total CO2 26 H (19-24) mmol/L ABG O2 Saturation 99.6 H (94-97) % ABG Hematocrit (34.0-46.0) % ABG Potassium (3.4-4.5) mmol/L ABG Ionized Calcium (4.5-5.3) mg/dL ABG Glucose (75-99) mg/dL Hemoglobin (13.0-17.5) gm/dL Sodium 136 L (137-145) mmol/L Chloride 109 H (98-107) mmol/L Carbon Dioxide (22-30) mmol/L Creatinine 0.62 L (0.66-1.25) mg/dL Glucose 117 H (74-99) mg/dL POC Glucose (mg/dL) 120 H (75-99) mg/dL Calcium 7.4 L (8.4-10.2) mg/dL Alkaline Phosphatase 33 L (38-126) U/L Total Protein 4.7 L (6.3-8.2) g/dL Albumin 2.6 L (3.5-5.0) g/dL Arterial Blood Potassium (3.4-4.5) mmol/L Arterial Blood Glucose (75-99) mg/dL Crossmatch 08/25/21 08/25/21 08/25/21 Range/Units 14:01 15:08 15:40 WBC 11.4 H (3.8-10.6) k/uL RBC 3.73 L (4.30-5.90) m/uL Hgb 12.3 L (13.0-17.5) gm/dL Hct 35.9 L (39.0-53.0) % Plt Count 108 L (150-450) k/uL Neutrophils # 9.9 H (1.3-7.7) k/uL Lymphocytes # 0.4 L (1.0-4.8) k/uL Monocytes # (0-1.0) k/uL PT (9.0-12.0) sec ABG pH (7.35-7.45) ABG pCO2 (35-45) mmHg ABG pO2 (83-108) mmHg ABG HCO3 (21-25) mmol/L ABG Total CO2 (19-24) mmol/L ABG O2 Saturation (94-97) % ABG Hematocrit (34.0-46.0) % ABG Potassium (3.4-4.5) mmol/L ABG Ionized Calcium (4.5-5.3) mg/dL ABG Glucose (75-99) mg/dL Hemoglobin (13.0-17.5) gm/dL Sodium (137-145) mmol/L Chloride (98-107) mmol/L Carbon Dioxide (22-30) mmol/L Creatinine (0.66-1.25) mg/dL Glucose (74-99) mg/dL POC Glucose (mg/dL) 114 H 112 H (75-99) mg/dL Calcium (8.4-10.2) mg/dL Alkaline Phosphatase (38-126) U/L Total Protein (6.3-8.2) g/dL Albumin (3.5-5.0) g/dL Arterial Blood Potassium (3.4-4.5) mmol/L Arterial Blood Glucose (75-99) mg/dL Crossmatch 08/25/21 08/25/21 08/25/21 Range/Units 16:05 17:14 18:04 WBC (3.8-10.6) k/uL RBC (4.30-5.90) m/uL Hgb (13.0-17.5) gm/dL Hct (39.0-53.0) % Plt Count (150-450) k/uL Neutrophils # (1.3-7.7) k/uL Lymphocytes # (1.0-4.8) k/uL Monocytes # (0-1.0) k/uL PT (9.0-12.0) sec ABG pH (7.35-7.45) ABG pCO2 (35-45) mmHg ABG pO2 (83-108) mmHg ABG HCO3 (21-25) mmol/L ABG Total CO2 (19-24) mmol/L ABG O2 Saturation (94-97) % ABG Hematocrit (34.0-46.0) % ABG Potassium (3.4-4.5) mmol/L ABG Ionized Calcium (4.5-5.3) mg/dL ABG Glucose (75-99) mg/dL Hemoglobin (13.0-17.5) gm/dL Sodium (137-145) mmol/L Chloride (98-107) mmol/L Carbon Dioxide (22-30) mmol/L Creatinine (0.66-1.25) mg/dL Glucose (74-99) mg/dL POC Glucose (mg/dL) 112 H 143 H 155 H (75-99) mg/dL Calcium (8.4-10.2) mg/dL Alkaline Phosphatase (38-126) U/L Total Protein (6.3-8.2) g/dL Albumin (3.5-5.0) g/dL Arterial Blood Potassium (3.4-4.5) mmol/L Arterial Blood Glucose (75-99) mg/dL Crossmatch 08/25/21 08/25/21 08/25/21 Range/Units 18:48 18:58 19:03 WBC (3.8-10.6) k/uL RBC 3.56 L (4.30-5.90) m/uL Hgb 11.7 L (13.0-17.5) gm/dL Hct 34.6 L (39.0-53.0) % Plt Count 109 L (150-450) k/uL Neutrophils # 9.1 H (1.3-7.7) k/uL Lymphocytes # 0.3 L (1.0-4.8) k/uL Monocytes # (0-1.0) k/uL PT (9.0-12.0) sec ABG pH (7.35-7.45) ABG pCO2 (35-45) mmHg ABG pO2 139 H (83-108) mmHg ABG HCO3 (21-25) mmol/L ABG Total CO2 (19-24) mmol/L ABG O2 Saturation 98.8 H (94-97) % ABG Hematocrit (34.0-46.0) % ABG Potassium (3.4-4.5) mmol/L ABG Ionized Calcium (4.5-5.3) mg/dL ABG Glucose (75-99) mg/dL Hemoglobin (13.0-17.5) gm/dL Sodium (137-145) mmol/L Chloride (98-107) mmol/L Carbon Dioxide (22-30) mmol/L Creatinine (0.66-1.25) mg/dL Glucose (74-99) mg/dL POC Glucose (mg/dL) 154 H (75-99) mg/dL Calcium (8.4-10.2) mg/dL Alkaline Phosphatase (38-126) U/L Total Protein (6.3-8.2) g/dL Albumin (3.5-5.0) g/dL Arterial Blood Potassium (3.4-4.5) mmol/L Arterial Blood Glucose (75-99) mg/dL Crossmatch 08/25/21 08/25/21 08/25/21 Range/Units 19:51 21:01 21:58 WBC (3.8-10.6) k/uL RBC (4.30-5.90) m/uL Hgb (13.0-17.5) gm/dL Hct (39.0-53.0) % Plt Count (150-450) k/uL Neutrophils # (1.3-7.7) k/uL Lymphocytes # (1.0-4.8) k/uL Monocytes # (0-1.0) k/uL PT (9.0-12.0) sec ABG pH (7.35-7.45) ABG pCO2 (35-45) mmHg ABG pO2 (83-108) mmHg ABG HCO3 (21-25) mmol/L ABG Total CO2 (19-24) mmol/L ABG O2 Saturation (94-97) % ABG Hematocrit (34.0-46.0) % ABG Potassium (3.4-4.5) mmol/L ABG Ionized Calcium (4.5-5.3) mg/dL ABG Glucose (75-99) mg/dL Hemoglobin (13.0-17.5) gm/dL Sodium (137-145) mmol/L Chloride (98-107) mmol/L Carbon Dioxide (22-30) mmol/L Creatinine (0.66-1.25) mg/dL Glucose (74-99) mg/dL POC Glucose (mg/dL) 169 H 151 H 149 H (75-99) mg/dL Calcium (8.4-10.2) mg/dL Alkaline Phosphatase (38-126) U/L Total Protein (6.3-8.2) g/dL Albumin (3.5-5.0) g/dL Arterial Blood Potassium (3.4-4.5) mmol/L Arterial Blood Glucose (75-99) mg/dL Crossmatch 08/25/21 08/25/21 08/26/21 Range/Units 23:01 23:54 01:02 WBC (3.8-10.6) k/uL RBC (4.30-5.90) m/uL Hgb (13.0-17.5) gm/dL Hct (39.0-53.0) % Plt Count (150-450) k/uL Neutrophils # (1.3-7.7) k/uL Lymphocytes # (1.0-4.8) k/uL Monocytes # (0-1.0) k/uL PT (9.0-12.0) sec ABG pH (7.35-7.45) ABG pCO2 (35-45) mmHg ABG pO2 (83-108) mmHg ABG HCO3 (21-25) mmol/L ABG Total CO2 (19-24) mmol/L ABG O2 Saturation (94-97) % ABG Hematocrit (34.0-46.0) % ABG Potassium (3.4-4.5) mmol/L ABG Ionized Calcium (4.5-5.3) mg/dL ABG Glucose (75-99) mg/dL Hemoglobin (13.0-17.5) gm/dL Sodium (137-145) mmol/L Chloride (98-107) mmol/L Carbon Dioxide (22-30) mmol/L Creatinine (0.66-1.25) mg/dL Glucose (74-99) mg/dL POC Glucose (mg/dL) 143 H 136 H 131 H (75-99) mg/dL Calcium (8.4-10.2) mg/dL Alkaline Phosphatase (38-126) U/L Total Protein (6.3-8.2) g/dL Albumin (3.5-5.0) g/dL Arterial Blood Potassium (3.4-4.5) mmol/L Arterial Blood Glucose (75-99) mg/dL Crossmatch 08/26/21 08/26/21 08/26/21 Range/Units 02:01 02:56 04:00 WBC 13.1 H (3.8-10.6) k/uL RBC 3.56 L (4.30-5.90) m/uL Hgb 11.8 L (13.0-17.5) gm/dL Hct 34.1 L (39.0-53.0) % Plt Count 112 L (150-450) k/uL Neutrophils # 11.3 H (1.3-7.7) k/uL Lymphocytes # 0.6 L (1.0-4.8) k/uL Monocytes # 1.1 H (0-1.0) k/uL PT (9.0-12.0) sec ABG pH (7.35-7.45) ABG pCO2 (35-45) mmHg ABG pO2 (83-108) mmHg ABG HCO3 (21-25) mmol/L ABG Total CO2 (19-24) mmol/L ABG O2 Saturation (94-97) % ABG Hematocrit (34.0-46.0) % ABG Potassium (3.4-4.5) mmol/L ABG Ionized Calcium (4.5-5.3) mg/dL ABG Glucose (75-99) mg/dL Hemoglobin (13.0-17.5) gm/dL Sodium (137-145) mmol/L Chloride (98-107) mmol/L Carbon Dioxide (22-30) mmol/L Creatinine (0.66-1.25) mg/dL Glucose (74-99) mg/dL POC Glucose (mg/dL) 121 H 120 H (75-99) mg/dL Calcium (8.4-10.2) mg/dL Alkaline Phosphatase (38-126) U/L Total Protein (6.3-8.2) g/dL Albumin (3.5-5.0) g/dL Arterial Blood Potassium (3.4-4.5) mmol/L Arterial Blood Glucose (75-99) mg/dL Crossmatch 08/26/21 08/26/21 08/26/21 Range/Units 04:00 04:01 05:07 WBC (3.8-10.6) k/uL RBC (4.30-5.90) m/uL Hgb (13.0-17.5) gm/dL Hct (39.0-53.0) % Plt Count (150-450) k/uL Neutrophils # (1.3-7.7) k/uL Lymphocytes # (1.0-4.8) k/uL Monocytes # (0-1.0) k/uL PT (9.0-12.0) sec ABG pH (7.35-7.45) ABG pCO2 (35-45) mmHg ABG pO2 (83-108) mmHg ABG HCO3 (21-25) mmol/L ABG Total CO2 (19-24) mmol/L ABG O2 Saturation (94-97) % ABG Hematocrit (34.0-46.0) % ABG Potassium (3.4-4.5) mmol/L ABG Ionized Calcium (4.5-5.3) mg/dL ABG Glucose (75-99) mg/dL Hemoglobin (13.0-17.5) gm/dL Sodium (137-145) mmol/L Chloride 108 H (98-107) mmol/L Carbon Dioxide 20 L (22-30) mmol/L Creatinine (0.66-1.25) mg/dL Glucose 113 H (74-99) mg/dL POC Glucose (mg/dL) 119 H 109 H (75-99) mg/dL Calcium 7.6 L (8.4-10.2) mg/dL Alkaline Phosphatase 29 L (38-126) U/L Total Protein 5.6 L (6.3-8.2) g/dL Albumin (3.5-5.0) g/dL Arterial Blood Potassium (3.4-4.5) mmol/L Arterial Blood Glucose (75-99) mg/dL Crossmatch 08/26/21 08/26/21 08/26/21 Range/Units 06:17 07:13 08:16 WBC (3.8-10.6) k/uL RBC (4.30-5.90) m/uL Hgb (13.0-17.5) gm/dL Hct (39.0-53.0) % Plt Count (150-450) k/uL Neutrophils # (1.3-7.7) k/uL Lymphocytes # (1.0-4.8) k/uL Monocytes # (0-1.0) k/uL PT (9.0-12.0) sec ABG pH (7.35-7.45) ABG pCO2 (35-45) mmHg ABG pO2 (83-108) mmHg ABG HCO3 (21-25) mmol/L ABG Total CO2 (19-24) mmol/L ABG O2 Saturation (94-97) % ABG Hematocrit (34.0-46.0) % ABG Potassium (3.4-4.5) mmol/L ABG Ionized Calcium (4.5-5.3) mg/dL ABG Glucose (75-99) mg/dL Hemoglobin (13.0-17.5) gm/dL Sodium (137-145) mmol/L Chloride (98-107) mmol/L Carbon Dioxide (22-30) mmol/L Creatinine (0.66-1.25) mg/dL Glucose (74-99) mg/dL POC Glucose (mg/dL) 157 H 120 H 119 H (75-99) mg/dL Calcium (8.4-10.2) mg/dL Alkaline Phosphatase (38-126) U/L Total Protein (6.3-8.2) g/dL Albumin (3.5-5.0) g/dL Arterial Blood Potassium (3.4-4.5) mmol/L Arterial Blood Glucose (75-99) mg/dL Crossmatch - Imaging and Cardiology Chest x-ray: report reviewed, image reviewed Assessment and Plan Assessment: 1. 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 Preserved left ventricular function 3. History of tobacco dependence with recent cessation 4. Mild COPD with preoperative FEV1 65% of predicted 5. Remote history of pneumonia 6. Peripheral arterial disease with history of abdominal aortic aneurysm 7. Hiatal hernia 8. Hyperlipidemia, treated, cholesterol 160, LDL 81 9. History of basal cell skin cancer approximately 3-4 years ago with removal 10. Vaccinated and boosted against Covid 11. Postoperative acute blood loss anemia and thrombocytopenia, expected Plan: 1. Continue Plavix, statin, low-dose beta jose with parameters. Will increase beta jose therapy as tolerated. Hold aspirin for now 2. Discontinue amiodarone 3. Wean O2 as tolerated. Encourage incentive spirometry 10 times every hour while awake. Bronchodilators per pulmonology 4. Increase activity as tolerated. PT/OT/cardiac rehab consulted 5. Will monitor daily labs and x-rays. Electrolyte replacement per protocol. No Lasix 6. Will discontinue Ozone. Connect Cordis to continuous CVP monitoring 7. GI/DVT prophylaxis. Will increase Protonix to twice daily 8. Pain controlled current medication regimen. Toradol discontinued 9. Insulin management per primary care service. Patient is not diabetic, preoperative hemoglobin A1c 5.8%, however he does need tight blood sugar control to promote sternal union and to prevent infection 10. Will discontinue mediastinal chest tube. Continue right pleural chest tube. 24 hours 11. Continue Quinones catheter for another 24 hours for strict accurate intake and output. Daily weights 12. More recommendations to follow based on patient's progress Time with Patient: Greater than 30
[2021-08-26] MEDS: PANTOPRAZOLE 40 MG/10 ML VIAL IVP SCH ×2 (09:18→21:38)
[2021-08-26] MEDS: HEPARIN SODIUM,PORCINE/PF 5,000 UNIT/0.5 ML SYRINGE SQ SCH ×2 (09:18→16:54)
[2021-08-26] MEDS: POTASSIUM CHLORIDE 10 MEQ in WATER FOR INJECTION 1 100ML.BAG IVPB SCH ×2 (09:18→11:55)
[2021-08-26] MEDS: ATORVASTATIN 40 MG TAB PO SCH (09:19)
[2021-08-26] MEDS: METOPROLOL TARTRATE 12.5 MG TAB PO SCH ×2 (09:19→21:38)
[2021-08-26] MEDS: SODIUM CHLORIDE 0.9% 1,000 ML IV SCH (09:19)
[2021-08-26] MEDS: CLOPIDOGREL 75 MG TAB PO SCH (09:19)
--- NOTE | 2021-08-26 09:30 | P.PN ---
Subjective Progress Note Date: 08/26/21 Principal diagnosis: Symptomatic mitral valve regurgitation 74-year-old white male patient with past medical history of hypertension, former smoker, COPD, who had symptoms of exertional dyspnea. His workup included cardiac catheterization, 2-D echo and transesophageal echocardiogram. He has preserved left ventricular function, mild left atrial dilatation, he was found to have severe prolapse of P2 was severe mitral valve regurgitation. His carotid ultrasound showed no significant stenosis. Cardiac cath on the 07/13/2019 showed normal coronary arteries, and normal left ventricular size and systolic function with severe mitral regurgitation. She also had low-dose lung CT which showed stable 3 mm subpleural nodule in the right middle lobe, and stable 3-4 mm right upper lobe nodule, moderately severe COPD. Patient actually did not have surgery until today on 08/25/2021 he came in for mitral valve repair, exclusion of the left atrial appendage and intraoperative t ransesophageal echocardiogram. We are seeing the patient is postoperative period, he is intubated and sedated, he is on small dose to prevent a 25 mics per kilo per minute, 0.50 ML per hour. No vasoactive drips. Vent settings are assist-control with a rate of 16, tidal volume is 400, FiO2 100% and PEEP of 5. Postoperative blood gases pending. Hemodynamically he is stable, blood pressures 102/56, PA pressures 22 over 1, CVP 3, cardiac output is 4.0, cardiac index is 2.1. 2 mediastinal chest tubes connected together with 140 of sanguinous output in the Pleur-evac, and 50 mL of sanguinous output in the right pleural chest tube. In sinus mechanism. On 08/26/2021 patient seen in follow-up in intensive care unit. He was successfully weaned and extubated on postoperative day #0, at 1858, 2 minutes under his 6 hour nicolas from the OR exit time. He sitting up in a chair today, awake and alert, is having some mild to moderate discomfort in his back, not so much incisional discomfort, hemodynamically stable, he is currently on normal saline at 50 ML per hour, insulin drip is at 2.5 units per hour, no vasoactive drips, she is in sinus mechanism, he is a paced at 80 BPM, blood pressure is 128/53, PA pressures 23/11, CVP is 6, cardiac output is 3.4, cardiac index is 1.7. Chest x-ray showing a trace 9 mm right apical pneumothorax versus 7 mm previously, trace left apical pneumothorax measuring 6 mm, and patchy left basilar retrocardiac atelectasis which has increased. Patient is working on incentive spirometer, he is achieving 2000 on it today. on 4 L of oxygen pulse ox is 95%. Breathing fairly comfortable, lung sounds are clear, diminished at the bases. Patient has 2 mediastinal and one right pleural chest tube, there is 450 mL of the mediastinal and 300 mL out of the right pleural over last 24 hours of thin serosanguineous output. Today's labs have been reviewed, white blood cell count is 13.1, hemoglobin is 11.8, sodium is 137, potassium is 3.6, chloride is 108, CO2 is 20, BUN is 18, creatinine 0.70. Patient is tolerating oral intake. His surgical incisions are clean dry and intact. Objective - Vital Signs Vital signs: Vital Signs Temp 99.3 F 08/26/21 08:00 Pulse 80 08/26/21 09:00 Resp 21 08/26/21 09:00 BP 105/62 08/26/21 09:00 Pulse Ox 94 L 08/26/21 09:00 Intake & Output 08/25/21 08/26/21 08/26/21 18:59 06:59 18:59 Intake Total 3847.722 2377.063 609.382 Output Total 2945 779 62 Balance -1652.050 923.063 547.382 Weight 76.8 kg Intake: IV 182 1585.70 605.67 0.9 NaCl- 550 50 ACETAMINOPHEN IV (For NPO 100 ) 1,000 mg In Empty Bag 1 bag @ 400 mls/hr IVPB Q6HR [facility] Rx#:[id number] Albumin 250 500 Amiodarone 450 mg In 166.70 16.67 Dextrose 5% in Water 250 ml @ 0.5 MG/MIN 16.667 mls/hr IV .Q15H PRN Rx#: [id number] CO/CI Injectate 130 370 30 Pressure Bag 99 9 ceFAZolin 2 gm In Sodium 50 Chloride 0.9% 50 ml @ 100 mls/hr IVPB Q8HR [facility] Rx# :[id number] Intake, IV Titration 1110.950 116.363 3.712 Amount ACETAMINOPHEN IV (For NPO 100 ) 1,000 mg In Empty Bag 1 bag @ 400 mls/hr IVPB Q6HR [facility] Rx#:[id number] Albumin Human 5% 250 ml 500 In Empty Bag 1 bag @ 250 mls/hr IVPB Q1HR PRN Rx#: [id number] Amiodarone 360 mg In 133.2 33.3 Dextrose 5% in Water 200 ml @ 1 MG/MIN 34.533 mls/ hr IV .Q6H PRN Rx#: [id number] Dexmedetomidine/0.9% NaCl 12.991 (Pmx) 400 mcg In Empty Bag 1 bag @ Titrate IV . Q0M [facility] Rx#:[id number] Insulin Regular 100 unit 33.063 3.712 In Sodium Chloride 0.9% 100 ml @ Per Protocol IV .Q0M [facility] Rx#:[id number] Sodium Chloride 0.9% 1, 250 50 000 ml @ 50 mls/hr IV . Q20H [facility] Rx#:[id number] ceFAZolin 2 gm In Sodium 50 Chloride 0.9% 50 ml @ 100 mls/hr IVPB Q8HR [facility] Rx# :[id number] propofoL 1,000 mg In 64.759 Empty Bag 1 bag @ Titrate IV .Q0M [facility] Rx#: [id number] Output: Chest Tube Drainage 475 290 20 Mediastinal 335 170 0 Rt Pleural 140 120 20 Urine 970 439 42 Emesis 50 Estimated Blood Loss 1500 Other: Voiding Method Indwelling Catheter Indwelling Catheter ABP, PAP, CO, CI - Last Documented Arterial Blood Pressure 122/50 Pulmonary Artery Pressure 22/9 Cardiac Output 5.4 Cardiac Index 2.7 - Exam GENERAL EXAM: Alert, very pleasant, 76-year-old male, oriented 3, sitting up in the recliner, he is currently on 4 L of oxygen the pulse ox of 95% comfortable in no apparent distress. HEAD: Normocephalic/atraumatic. EYES: Normal reaction of pupils, equal size. Conjunctiva pink, sclera white. NOSE: Clear with pink turbinates. THROAT: No erythema or exudates. NECK: No masses, no JVD, no thyroid enlargement, no adenopathy. CHEST: No chest wall deformity. Symmetrical expansion. Midsternal incision is clean dry and intact, 3 chest tubes including 2 mediastinal and right pleural chest tube with small amount of sanguinous output in the Pleur-evac's, AV wires in place LUNGS: Equal air entry with no crackles, wheeze, rhonchi or dullness. CVS: Regular rate and rhythm, normal S1 and S2, no gallops, no murmurs, no rubs ABDOMEN: Soft, nontender. No hepatosplenomegaly, normal bowel sounds, no guarding or rigidity. EXTREMITIES: No clubbing, no edema, no cyanosis, 2+ pulses and upper and lower extremities. MUSCULOSKELETAL: Muscle strength and tone normal. SPINE: No scoliosis or deformity SKIN: No rashes CENTRAL NERVOUS SYSTEM: Awake and alert, oriented 3 No focal deficits, tone is normal in all 4 extremities. - Labs CBC & Chem 7: 08/26/21 04:00 08/26/21 04:00 Labs: Abnormal Lab Results - Last 24 Hours (Table) 08/21/21 08/25/21 08/25/21 Range/Units 09:00 08:30 09:26 WBC (3.8-10.6) k/uL RBC (4.30-5.90) m/uL Hgb (13.0-17.5) gm/dL Hct (39.0-53.0) % Plt Count (150-450) k/uL Neutrophils # (1.3-7.7) k/uL Lymphocytes # (1.0-4.8) k/uL Monocytes # (0-1.0) k/uL PT (9.0-12.0) sec ABG pH (7.35-7.45) ABG pCO2 (35-45) mmHg ABG pO2 181 H 168 H (83-108) mmHg ABG HCO3 (21-25) mmol/L ABG Total CO2 26 H 27 H (19-24) mmol/L ABG O2 Saturation 99.4 H 99.3 H (94-97) % ABG Hematocrit (34.0-46.0) % ABG Potassium (3.4-4.5) mmol/L ABG Ionized Calcium (4.5-5.3) mg/dL ABG Glucose 133 H (75-99) mg/dL Hemoglobin (13.0-17.5) gm/dL Sodium (137-145) mmol/L Chloride (98-107) mmol/L Carbon Dioxide (22-30) mmol/L Creatinine (0.66-1.25) mg/dL Glucose (74-99) mg/dL POC Glucose (mg/dL) (75-99) mg/dL Calcium (8.4-10.2) mg/dL Alkaline Phosphatase (38-126) U/L Total Protein (6.3-8.2) g/dL Albumin (3.5-5.0) g/dL Arterial Blood Potassium (3.4-4.5) mmol/L Arterial Blood Glucose 133 H (75-99) mg/dL Crossmatch See Detail 08/25/21 08/25/21 08/25/21 Range/Units 10:47 10:47 11:28 WBC (3.8-10.6) k/uL RBC (4.30-5.90) m/uL Hgb (13.0-17.5) gm/dL Hct (39.0-53.0) % Plt Count (150-450) k/uL Neutrophils # (1.3-7.7) k/uL Lymphocytes # (1.0-4.8) k/uL Monocytes # (0-1.0) k/uL PT (9.0-12.0) sec ABG pH 7.31 L (7.35-7.45) ABG pCO2 51 H (35-45) mmHg ABG pO2 >420 H 299 H 362 H (83-108) mmHg ABG HCO3 26 H (21-25) mmol/L ABG Total CO2 26 H 27 H 25 H (19-24) mmol/L ABG O2 Saturation 99.8 H 99.6 H 99.8 H (94-97) % ABG Hematocrit 31 L 32 L 31 L (34.0-46.0) % ABG Potassium 5.4 H 5.1 H 5.4 H (3.4-4.5) mmol/L ABG Ionized Calcium 3.9 L 4.2 L 4.0 L (4.5-5.3) mg/dL ABG Glucose 132 H 130 H 131 H (75-99) mg/dL Hemoglobin 9.9 L 10.4 L 10.0 L (13.0-17.5) gm/dL Sodium (137-145) mmol/L Chloride (98-107) mmol/L Carbon Dioxide (22-30) mmol/L Creatinine (0.66-1.25) mg/dL Glucose (74-99) mg/dL POC Glucose (mg/dL) (75-99) mg/dL Calcium (8.4-10.2) mg/dL Alkaline Phosphatase (38-126) U/L Total Protein (6.3-8.2) g/dL Albumin (3.5-5.0) g/dL Arterial Blood Potassium 5.4 H 5.1 H 5.4 H (3.4-4.5) mmol/L Arterial Blood Glucose 132 H 130 H 131 H (75-99) mg/dL Crossmatch 08/25/21 08/25/21 08/25/21 Range/Units 12:38 13:00 13:00 WBC (3.8-10.6) k/uL RBC 3.83 L (4.30-5.90) m/uL Hgb 12.8 L (13.0-17.5) gm/dL Hct 36.9 L (39.0-53.0) % Plt Count 114 L (150-450) k/uL Neutrophils # 9.2 H (1.3-7.7) k/uL Lymphocytes # 0.6 L (1.0-4.8) k/uL Monocytes # (0-1.0) k/uL PT 12.1 H (9.0-12.0) sec ABG pH 7.33 L (7.35-7.45) ABG pCO2 47 H (35-45) mmHg ABG pO2 146 H (83-108) mmHg ABG HCO3 (21-25) mmol/L ABG Total CO2 26 H (19-24) mmol/L ABG O2 Saturation 99.0 H (94-97) % ABG Hematocrit (34.0-46.0) % ABG Potassium (3.4-4.5) mmol/L ABG Ionized Calcium 4.4 L (4.5-5.3) mg/dL ABG Glucose 126 H (75-99) mg/dL Hemoglobin 12.2 L (13.0-17.5) gm/dL Sodium (137-145) mmol/L Chloride (98-107) mmol/L Carbon Dioxide (22-30) mmol/L Creatinine (0.66-1.25) mg/dL Glucose (74-99) mg/dL POC Glucose (mg/dL) (75-99) mg/dL Calcium (8.4-10.2) mg/dL Alkaline Phosphatase (38-126) U/L Total Protein (6.3-8.2) g/dL Albumin (3.5-5.0) g/dL Arterial Blood Potassium (3.4-4.5) mmol/L Arterial Blood Glucose 126 H (75-99) mg/dL Crossmatch 08/25/21 08/25/21 08/25/21 Range/Units 13:00 13:08 13:30 WBC (3.8-10.6) k/uL RBC (4.30-5.90) m/uL Hgb (13.0-17.5) gm/dL Hct (39.0-53.0) % Plt Count (150-450) k/uL Neutrophils # (1.3-7.7) k/uL Lymphocytes # (1.0-4.8) k/uL Monocytes # (0-1.0) k/uL PT (9.0-12.0) sec ABG pH 7.29 L (7.35-7.45) ABG pCO2 51 H (35-45) mmHg ABG pO2 390 H (83-108) mmHg ABG HCO3 (21-25) mmol/L ABG Total CO2 26 H (19-24) mmol/L ABG O2 Saturation 99.6 H (94-97) % ABG Hematocrit (34.0-46.0) % ABG Potassium (3.4-4.5) mmol/L ABG Ionized Calcium (4.5-5.3) mg/dL ABG Glucose (75-99) mg/dL Hemoglobin (13.0-17.5) gm/dL Sodium 136 L (137-145) mmol/L Chloride 109 H (98-107) mmol/L Carbon Dioxide (22-30) mmol/L Creatinine 0.62 L (0.66-1.25) mg/dL Glucose 117 H (74-99) mg/dL POC Glucose (mg/dL) 120 H (75-99) mg/dL Calcium 7.4 L (8.4-10.2) mg/dL Alkaline Phosphatase 33 L (38-126) U/L Total Protein 4.7 L (6.3-8.2) g/dL Albumin 2.6 L (3.5-5.0) g/dL Arterial Blood Potassium (3.4-4.5) mmol/L Arterial Blood Glucose (75-99) mg/dL Crossmatch 08/25/21 08/25/21 08/25/21 Range/Units 14:01 15:08 15:40 WBC 11.4 H (3.8-10.6) k/uL RBC 3.73 L (4.30-5.90) m/uL Hgb 12.3 L (13.0-17.5) gm/dL Hct 35.9 L (39.0-53.0) % Plt Count 108 L (150-450) k/uL Neutrophils # 9.9 H (1.3-7.7) k/uL Lymphocytes # 0.4 L (1.0-4.8) k/uL Monocytes # (0-1.0) k/uL PT (9.0-12.0) sec ABG pH (7.35-7.45) ABG pCO2 (35-45) mmHg ABG pO2 (83-108) mmHg ABG HCO3 (21-25) mmol/L ABG Total CO2 (19-24) mmol/L ABG O2 Saturation (94-97) % ABG Hematocrit (34.0-46.0) % ABG Potassium (3.4-4.5) mmol/L ABG Ionized Calcium (4.5-5.3) mg/dL ABG Glucose (75-99) mg/dL Hemoglobin (13.0-17.5) gm/dL Sodium (137-145) mmol/L Chloride (98-107) mmol/L Carbon Dioxide (22-30) mmol/L Creatinine (0.66-1.25) mg/dL Glucose (74-99) mg/dL POC Glucose (mg/dL) 114 H 112 H (75-99) mg/dL Calcium (8.4-10.2) mg/dL Alkaline Phosphatase (38-126) U/L Total Protein (6.3-8.2) g/dL Albumin (3.5-5.0) g/dL Arterial Blood Potassium (3.4-4.5) mmol/L Arterial Blood Glucose (75-99) mg/dL Crossmatch 08/25/21 08/25/21 08/25/21 Range/Units 16:05 17:14 18:04 WBC (3.8-10.6) k/uL RBC (4.30-5.90) m/uL Hgb (13.0-17.5) gm/dL Hct (39.0-53.0) % Plt Count (150-450) k/uL Neutrophils # (1.3-7.7) k/uL Lymphocytes # (1.0-4.8) k/uL Monocytes # (0-1.0) k/uL PT (9.0-12.0) sec ABG pH (7.35-7.45) ABG pCO2 (35-45) mmHg ABG pO2 (83-108) mmHg ABG HCO3 (21-25) mmol/L ABG Total CO2 (19-24) mmol/L ABG O2 Saturation (94-97) % ABG Hematocrit (34.0-46.0) % ABG Potassium (3.4-4.5) mmol/L ABG Ionized Calcium (4.5-5.3) mg/dL ABG Glucose (75-99) mg/dL Hemoglobin (13.0-17.5) gm/dL Sodium (137-145) mmol/L Chloride (98-107) mmol/L Carbon Dioxide (22-30) mmol/L Creatinine (0.66-1.25) mg/dL Glucose (74-99) mg/dL POC Glucose (mg/dL) 112 H 143 H 155 H (75-99) mg/dL Calcium (8.4-10.2) mg/dL Alkaline Phosphatase (38-126) U/L Total Protein (6.3-8.2) g/dL Albumin (3.5-5.0) g/dL Arterial Blood Potassium (3.4-4.5) mmol/L Arterial Blood Glucose (75-99) mg/dL Crossmatch 08/25/21 08/25/21 08/25/21 Range/Units 18:48 18:58 19:03 WBC (3.8-10.6) k/uL RBC 3.56 L (4.30-5.90) m/uL Hgb 11.7 L (13.0-17.5) gm/dL Hct 34.6 L (39.0-53.0) % Plt Count 109 L (150-450) k/uL Neutrophils # 9.1 H (1.3-7.7) k/uL Lymphocytes # 0.3 L (1.0-4.8) k/uL Monocytes # (0-1.0) k/uL PT (9.0-12.0) sec ABG pH (7.35-7.45) ABG pCO2 (35-45) mmHg ABG pO2 139 H (83-108) mmHg ABG HCO3 (21-25) mmol/L ABG Total CO2 (19-24) mmol/L ABG O2 Saturation 98.8 H (94-97) % ABG Hematocrit (34.0-46.0) % ABG Potassium (3.4-4.5) mmol/L ABG Ionized Calcium (4.5-5.3) mg/dL ABG Glucose (75-99) mg/dL Hemoglobin (13.0-17.5) gm/dL Sodium (137-145) mmol/L Chloride (98-107) mmol/L Carbon Dioxide (22-30) mmol/L Creatinine (0.66-1.25) mg/dL Glucose (74-99) mg/dL POC Glucose (mg/dL) 154 H (75-99) mg/dL Calcium (8.4-10.2) mg/dL Alkaline Phosphatase (38-126) U/L Total Protein (6.3-8.2) g/dL Albumin (3.5-5.0) g/dL Arterial Blood Potassium (3.4-4.5) mmol/L Arterial Blood Glucose (75-99) mg/dL Crossmatch 08/25/21 08/25/21 08/25/21 Range/Units 19:51 21:01 21:58 WBC (3.8-10.6) k/uL RBC (4.30-5.90) m/uL Hgb (13.0-17.5) gm/dL Hct (39.0-53.0) % Plt Count (150-450) k/uL Neutrophils # (1.3-7.7) k/uL Lymphocytes # (1.0-4.8) k/uL Monocytes # (0-1.0) k/uL PT (9.0-12.0) sec ABG pH (7.35-7.45) ABG pCO2 (35-45) mmHg ABG pO2 (83-108) mmHg ABG HCO3 (21-25) mmol/L ABG Total CO2 (19-24) mmol/L ABG O2 Saturation (94-97) % ABG Hematocrit (34.0-46.0) % ABG Potassium (3.4-4.5) mmol/L ABG Ionized Calcium (4.5-5.3) mg/dL ABG Glucose (75-99) mg/dL Hemoglobin (13.0-17.5) gm/dL Sodium (137-145) mmol/L Chloride (98-107) mmol/L Carbon Dioxide (22-30) mmol/L Creatinine (0.66-1.25) mg/dL Glucose (74-99) mg/dL POC Glucose (mg/dL) 169 H 151 H 149 H (75-99) mg/dL Calcium (8.4-10.2) mg/dL Alkaline Phosphatase (38-126) U/L Total Protein (6.3-8.2) g/dL Albumin (3.5-5.0) g/dL Arterial Blood Potassium (3.4-4.5) mmol/L Arterial Blood Glucose (75-99) mg/dL Crossmatch 08/25/21 08/25/21 08/26/21 Range/Units 23:01 23:54 01:02 WBC (3.8-10.6) k/uL RBC (4.30-5.90) m/uL Hgb (13.0-17.5) gm/dL Hct (39.0-53.0) % Plt Count (150-450) k/uL Neutrophils # (1.3-7.7) k/uL Lymphocytes # (1.0-4.8) k/uL Monocytes # (0-1.0) k/uL PT (9.0-12.0) sec ABG pH (7.35-7.45) ABG pCO2 (35-45) mmHg ABG pO2 (83-108) mmHg ABG HCO3 (21-25) mmol/L ABG Total CO2 (19-24) mmol/L ABG O2 Saturation (94-97) % ABG Hematocrit (34.0-46.0) % ABG Potassium (3.4-4.5) mmol/L ABG Ionized Calcium (4.5-5.3) mg/dL ABG Glucose (75-99) mg/dL Hemoglobin (13.0-17.5) gm/dL Sodium (137-145) mmol/L Chloride (98-107) mmol/L Carbon Dioxide (22-30) mmol/L Creatinine (0.66-1.25) mg/dL Glucose (74-99) mg/dL POC Glucose (mg/dL) 143 H 136 H 131 H (75-99) mg/dL Calcium (8.4-10.2) mg/dL Alkaline Phosphatase (38-126) U/L Total Protein (6.3-8.2) g/dL Albumin (3.5-5.0) g/dL Arterial Blood Potassium (3.4-4.5) mmol/L Arterial Blood Glucose (75-99) mg/dL Crossmatch 08/26/21 08/26/21 08/26/21 Range/Units 02:01 02:56 04:00 WBC 13.1 H (3.8-10.6) k/uL RBC 3.56 L (4.30-5.90) m/uL Hgb 11.8 L (13.0-17.5) gm/dL Hct 34.1 L (39.0-53.0) % Plt Count 112 L (150-450) k/uL Neutrophils # 11.3 H (1.3-7.7) k/uL Lymphocytes # 0.6 L (1.0-4.8) k/uL Monocytes # 1.1 H (0-1.0) k/uL PT (9.0-12.0) sec ABG pH (7.35-7.45) ABG pCO2 (35-45) mmHg ABG pO2 (83-108) mmHg ABG HCO3 (21-25) mmol/L ABG Total CO2 (19-24) mmol/L ABG O2 Saturation (94-97) % ABG Hematocrit (34.0-46.0) % ABG Potassium (3.4-4.5) mmol/L ABG Ionized Calcium (4.5-5.3) mg/dL ABG Glucose (75-99) mg/dL Hemoglobin (13.0-17.5) gm/dL Sodium (137-145) mmol/L Chloride (98-107) mmol/L Carbon Dioxide (22-30) mmol/L Creatinine (0.66-1.25) mg/dL Glucose (74-99) mg/dL POC Glucose (mg/dL) 121 H 120 H (75-99) mg/dL Calcium (8.4-10.2) mg/dL Alkaline Phosphatase (38-126) U/L Total Protein (6.3-8.2) g/dL Albumin (3.5-5.0) g/dL Arterial Blood Potassium (3.4-4.5) mmol/L Arterial Blood Glucose (75-99) mg/dL Crossmatch 08/26/21 08/26/21 08/26/21 Range/Units 04:00 04:01 05:07 WBC (3.8-10.6) k/uL RBC (4.30-5.90) m/uL Hgb (13.0-17.5) gm/dL Hct (39.0-53.0) % Plt Count (150-450) k/uL Neutrophils # (1.3-7.7) k/uL Lymphocytes # (1.0-4.8) k/uL Monocytes # (0-1.0) k/uL PT (9.0-12.0) sec ABG pH (7.35-7.45) ABG pCO2 (35-45) mmHg ABG pO2 (83-108) mmHg ABG HCO3 (21-25) mmol/L ABG Total CO2 (19-24) mmol/L ABG O2 Saturation (94-97) % ABG Hematocrit (34.0-46.0) % ABG Potassium (3.4-4.5) mmol/L ABG Ionized Calcium (4.5-5.3) mg/dL ABG Glucose (75-99) mg/dL Hemoglobin (13.0-17.5) gm/dL Sodium (137-145) mmol/L Chloride 108 H (98-107) mmol/L Carbon Dioxide 20 L (22-30) mmol/L Creatinine (0.66-1.25) mg/dL Glucose 113 H (74-99) mg/dL POC Glucose (mg/dL) 119 H 109 H (75-99) mg/dL Calcium 7.6 L (8.4-10.2) mg/dL Alkaline Phosphatase 29 L (38-126) U/L Total Protein 5.6 L (6.3-8.2) g/dL Albumin (3.5-5.0) g/dL Arterial Blood Potassium (3.4-4.5) mmol/L Arterial Blood Glucose (75-99) mg/dL Crossmatch 08/26/21 08/26/21 08/26/21 Range/Units 06:17 07:13 08:16 WBC (3.8-10.6) k/uL RBC (4.30-5.90) m/uL Hgb (13.0-17.5) gm/dL Hct (39.0-53.0) % Plt Count (150-450) k/uL Neutrophils # (1.3-7.7) k/uL Lymphocytes # (1.0-4.8) k/uL Monocytes # (0-1.0) k/uL PT (9.0-12.0) sec ABG pH (7.35-7.45) ABG pCO2 (35-45) mmHg ABG pO2 (83-108) mmHg ABG HCO3 (21-25) mmol/L ABG Total CO2 (19-24) mmol/L ABG O2 Saturation (94-97) % ABG Hematocrit (34.0-46.0) % ABG Potassium (3.4-4.5) mmol/L ABG Ionized Calcium (4.5-5.3) mg/dL ABG Glucose (75-99) mg/dL Hemoglobin (13.0-17.5) gm/dL Sodium (137-145) mmol/L Chloride (98-107) mmol/L Carbon Dioxide (22-30) mmol/L Creatinine (0.66-1.25) mg/dL Glucose (74-99) mg/dL POC Glucose (mg/dL) 157 H 120 H 119 H (75-99) mg/dL Calcium (8.4-10.2) mg/dL Alkaline Phosphatase (38-126) U/L Total Protein (6.3-8.2) g/dL Albumin (3.5-5.0) g/dL Arterial Blood Potassium (3.4-4.5) mmol/L Arterial Blood Glucose (75-99) mg/dL Crossmatch Assessment and Plan Plan: Assessment: #1. Symptomatic mitral valve regurgitation, status post mitral valve repair, exclusion of left atrial appendage, and intraoperative BECKY on 08/25/2021, postoperative day #1 #2. Routine postoperative ventilator management, patient was successfully weaned and extubated on postoperative day #0, at the 1858, 2 minutes before 6 hour nicolas from his OR exit time #3. Hyperlipidemia #4. Former smoker #5. History of cataracts #6. History of basal cell carcinoma with surgical removal #7. Moderately severe COPD with preoperative PFT of 67% predicted Plan: Patient is doing well on postoperative day #1 Today's chest x-ray has been reviewed and labs reviewed Hemodynamically he is stable Encouraged to deep breathing and coughing and incentive spirometry use Continue breathing treatments 4 times a day as needed Daily chest x-rays and labs Continue to follow closely in the ICU GI and DVT prophylaxis per CT surgery I have personally seen and examined the patient, performed the documentation and the assessment and plan as written. Number of minutes spent on the visit: [10] Time with Patient: Less than 30
[2021-08-26 10:01] LABS: Glucose,Whole Blood 132 mg/dL (75-99)
--- NOTE | 2021-08-26 10:16 | P.HPIM ---
History of Present Illness H&P Date: 08/26/21 patient is a 74-year-old male with a past medical history significant for COPD, essential hypertension, GERD, presents to the hospital secondary complex mitral valve repair.a 2-D echocardiogram was completed in May 2021 which showed severe prolapse of the posterior mitral valve leaflets with severe mitral regurgitation with no signs of pericardial effusion.the patient was examined in the intensive care unit currently is extubated. Patient denies any chest pain, shortness of breath or palpitations however does have generalized fatigue/weaknesswhile sitting up in his chair.patient's vital signs currently blood pressure 105/62, saturations above 92%,CBC WBC count 13.1, hemoglobin stable at 11.8, platelets 112,BMP electro-lytes within normal limits, glucose 119.chest x-ray was completed which showed a 9 mm right apical pneumothorax which was 7 mm previously. The read either a artifact or trace left apical pneumothorax measuring 6 mm with patchy left basilar atlectasis. Past Medical History Past Medical History: Cancer, COPD, Eye Disorder, GERD/Reflux, Hyperlipidemia Additional Past Medical History / Comment(s): Mitral Valve Insufficiency,GLAUCOMA BILAT Eyes,Abdominal Aortic Aneurysm,Hiatal Hernia,HX BASAL CELL SKIN CANCER ON FOREHEAD AND RT SIDE OF NECK approx 3-4 yrs ago. History of Any Multi-Drug Resistant Organisms: None Reported Past Surgical History: Appendectomy, Heart Catheterization Additional Past Surgical History / Comment(s): BECKY,COLONOSCOPY,SKIN CANCER REMOVED,. BILAT CATARACTS REMOVED/LENS IMPLANTS,. MACULAR HOLE REPAIR ALEXIA EYES,ORIF RT ELBOW-HARDWARE LATER REMOVED Past Anesthesia/Blood Transfusion Reactions: No Reported Reaction Additional Past Anesthesia/Blood Transfusion Reaction / Comment(s): No hx blood transfusion Smoking Status: Former smoker - Past Family History Mother Family Medical History: No Reported History Medications and Allergies Home Medications Medication Instructions Recorded Confirmed Type Aspirin [Adult Low Dose Aspirin EC] 81 mg PO DAILY 06/12/19 08/25/21 History Atorvastatin [Lipitor] 20 mg PO HS 06/12/19 08/25/21 History Latanoprost/Pf [Latanoprost 0.005% 1 drop BOTH EYES HS 06/12/19 08/25/21 History Eye Drop] Varenicline [Chantix Continuing 1 mg PO DAILY 06/12/19 08/25/21 History Pack] Umeclidinium Brm/Vilanterol Tr 1 puff INHALATION DAILY 08/21/21 08/25/21 History [Anoro Ellipta 62.5-25 Mcg INH] Allergies Allergy/AdvReac Type Severity Reaction Status Date / Time bee venom protein (honey bee) Allergy Anaphylaxis Verified 08/25/21 05:55 Penicillins Allergy Rash/Hives Verified 08/25/21 05:55 Physical Exam Vitals: Vital Signs Temp Pulse Resp BP Pulse Ox 08/26/21 09:00 80 21 105/62 94 L 08/26/21 08:40 80 08/26/21 08:29 80 08/26/21 08:00 99.3 F 80 16 103/60 95 08/26/21 07:30 80 19 94 L 08/26/21 07:00 80 15 94/57 96 08/26/21 06:30 80 20 95 08/26/21 06:00 80 20 109/69 92 L 08/26/21 05:30 80 19 92 L 08/26/21 05:00 80 17 112/73 94 L 08/26/21 04:30 80 18 94 L 08/26/21 04:00 80 14 107/75 95 08/26/21 03:30 80 16 95 08/26/21 03:00 80 18 109/74 94 L 08/26/21 02:30 80 19 94 L 08/26/21 02:00 80 20 109/74 94 L 08/26/21 01:30 80 19 95 08/26/21 01:00 78 20 98/65 94 L 08/26/21 00:30 63 17 94 L 08/26/21 00:00 69 19 98/66 95 08/25/21 23:30 67 18 96 08/25/21 23:00 68 18 94/69 96 08/25/21 22:30 69 20 95 08/25/21 22:00 67 19 99/59 95 08/25/21 21:30 65 18 96 08/25/21 21:00 64 16 103/70 96 08/25/21 20:35 68 08/25/21 20:30 60 20 98 08/25/21 20:21 64 95 08/25/21 20:15 61 18 96 08/25/21 20:00 61 16 109/66 96 08/25/21 19:45 67 10 L 96 08/25/21 19:00 99.5 F 70 16 97/57 96 08/25/21 18:45 68 14 100 08/25/21 18:30 71 17 99 08/25/21 18:15 71 14 97/57 97 08/25/21 18:00 99.1 F 71 14 99 08/25/21 17:45 74 17 99 08/25/21 17:30 76 23 99 08/25/21 17:15 78 20 93/55 99 08/25/21 17:00 99.3 F 79 21 99 08/25/21 16:45 80 20 99 08/25/21 16:30 80 20 99 08/25/21 16:23 87 08/25/21 16:15 80 20 100 08/25/21 16:06 80 08/25/21 16:00 99.0 F 80 20 94/59 100 08/25/21 15:45 80 21 99 08/25/21 15:30 82 20 99 08/25/21 15:15 79 20 99 08/25/21 15:00 98.6 F 77 20 99 08/25/21 14:45 75 20 100 08/25/21 14:30 97.3 F L 75 20 100 08/25/21 14:15 78 20 99 08/25/21 14:00 96.8 F L 75 20 100 08/25/21 13:45 72 16 99 08/25/21 13:30 95.9 F L 74 16 100 08/25/21 13:15 16 Intake and Output 08/25/21 08/26/21 08/26/21 22:59 06:59 14:59 Intake Total 3830.314 3729.895 609.382 Output Total 709 565 62 Balance 843.142 456.895 547.382 Intake: IV 667.01 998.69 605.67 0.9 NaCl- 150 400 50 ACETAMINOPHEN IV (For NPO 100 ) 1,000 mg In Empty Bag 1 bag @ 400 mls/hr IVPB Q6HR [facility] Rx#:[id number] Albumin 250 500 Amiodarone 450 mg In 50.01 116.69 16.67 Dextrose 5% in Water 250 ml @ 0.5 MG/MIN 16.667 mls/hr IV .Q15H PRN Rx#: [id number] CO/CI Injectate 190 260 30 Pressure Bag 27 72 9 ceFAZolin 2 gm In Sodium 50 Chloride 0.9% 50 ml @ 100 mls/hr IVPB Q8HR [facility] Rx# :[id number] Intake, IV Titration 885.132 23.205 3.712 Amount ACETAMINOPHEN IV (For NPO 100 ) 1,000 mg In Empty Bag 1 bag @ 400 mls/hr IVPB Q6HR [facility] Rx#:[id number] Albumin Human 5% 250 ml 250 In Empty Bag 1 bag @ 250 mls/hr IVPB Q1HR PRN Rx#: [id number] Amiodarone 360 mg In 166.5 Dextrose 5% in Water 200 ml @ 1 MG/MIN 34.533 mls/ hr IV .Q6H PRN Rx#: [id number] Dexmedetomidine/0.9% NaCl 12.991 (Pmx) 400 mcg In Empty Bag 1 bag @ Titrate IV . Q0M [facility] Rx#:[id number] Insulin Regular 100 unit 9.858 23.205 3.712 In Sodium Chloride 0.9% 100 ml @ Per Protocol IV .Q0M [facility] Rx#:[id number] Sodium Chloride 0.9% 1, 250 000 ml @ 50 mls/hr IV . Q20H [facility] Rx#:[id number] ceFAZolin 2 gm In Sodium 50 Chloride 0.9% 50 ml @ 100 mls/hr IVPB Q8HR [facility] Rx# :[id number] propofoL 1,000 mg In 45.783 Empty Bag 1 bag @ Titrate IV .Q0M [facility] Rx#: [id number] Output: Chest Tube Drainage 310 210 20 Mediastinal 210 110 0 Rt Pleural 100 100 20 Urine 399 305 42 Emesis 50 Other: Voiding Method Indwelling Catheter Indwelling Catheter Weight 76.8 kg ABP, PAP, CO, CI - Last 8 Hours Arterial Blood Pressure 122/50 Arterial Blood Pressure 108/49 Arterial Blood Pressure 106/49 Arterial Blood Pressure 116/49 Arterial Blood Pressure 106/46 Arterial Blood Pressure 107/50 Arterial Blood Pressure 131/61 Arterial Blood Pressure 118/62 Arterial Blood Pressure 127/67 Arterial Blood Pressure 126/67 Arterial Blood Pressure 123/63 Arterial Blood Pressure 118/64 Arterial Blood Pressure 123/63 Pulmonary Artery Pressure 22/9 Pulmonary Artery Pressure 19/6 Pulmonary Artery Pressure 20/7 Pulmonary Artery Pressure 18/7 Pulmonary Artery Pressure 23/11 Pulmonary Artery Pressure 30/16 Pulmonary Artery Pressure 34/16 Pulmonary Artery Pressure 32/19 Pulmonary Artery Pressure 34/20 Pulmonary Artery Pressure 34/19 Pulmonary Artery Pressure 36/21 Pulmonary Artery Pressure 34/20 Pulmonary Artery Pressure 35/18 Pulmonary Artery Pressure 33/17 Cardiac Output 5.4 Cardiac Output 4.7 Cardiac Output 3.5 Cardiac Output 3.8 Cardiac Output 3.3 Cardiac Output 3.2 Cardiac Output 3.4 Cardiac Index 2.7 Cardiac Index 2.4 Cardiac Index 1.8 Cardiac Index 1.9 Cardiac Index 1.7 Cardiac Index 1.6 Cardiac Index 1.7 general patient is awake alert oriented 3 sitting up in chair slightly uncomfortable due to wiring Cardio normal S1/S2 heard, regula regular rate, heart hugger in place respiratory: no wheezing or rhonchi apperciated, slight decrease breathe sounds due to pain most likely. Abdo - soft non-tender Psychiatric: normal mood, AAOx3 Neuro - CN 2-12 grossly intact. Results CBC & Chem 7: 08/26/21 04:00 08/26/21 04:00 Labs: Abnormal Lab Results - Last 24 Hours (Table) 08/21/21 08/25/21 08/25/21 Range/Units 09:00 08:30 09:26 WBC (3.8-10.6) k/uL RBC (4.30-5.90) m/uL Hgb (13.0-17.5) gm/dL Hct (39.0-53.0) % Plt Count (150-450) k/uL Neutrophils # (1.3-7.7) k/uL Lymphocytes # (1.0-4.8) k/uL Monocytes # (0-1.0) k/uL PT (9.0-12.0) sec ABG pH (7.35-7.45) ABG pCO2 (35-45) mmHg ABG pO2 181 H 168 H (83-108) mmHg ABG HCO3 (21-25) mmol/L ABG Total CO2 26 H 27 H (19-24) mmol/L ABG O2 Saturation 99.4 H 99.3 H (94-97) % ABG Hematocrit (34.0-46.0) % ABG Potassium (3.4-4.5) mmol/L ABG Ionized Calcium (4.5-5.3) mg/dL ABG Glucose 133 H (75-99) mg/dL Hemoglobin (13.0-17.5) gm/dL Sodium (137-145) mmol/L Chloride (98-107) mmol/L Carbon Dioxide (22-30) mmol/L Creatinine (0.66-1.25) mg/dL Glucose (74-99) mg/dL POC Glucose (mg/dL) (75-99) mg/dL Calcium (8.4-10.2) mg/dL Alkaline Phosphatase (38-126) U/L Total Protein (6.3-8.2) g/dL Albumin (3.5-5.0) g/dL Arterial Blood Potassium (3.4-4.5) mmol/L Arterial Blood Glucose 133 H (75-99) mg/dL Crossmatch See Detail 08/25/21 08/25/21 08/25/21 Range/Units 10:47 10:47 11:28 WBC (3.8-10.6) k/uL RBC (4.30-5.90) m/uL Hgb (13.0-17.5) gm/dL Hct (39.0-53.0) % Plt Count (150-450) k/uL Neutrophils # (1.3-7.7) k/uL Lymphocytes # (1.0-4.8) k/uL Monocytes # (0-1.0) k/uL PT (9.0-12.0) sec ABG pH 7.31 L (7.35-7.45) ABG pCO2 51 H (35-45) mmHg ABG pO2 >420 H 299 H 362 H (83-108) mmHg ABG HCO3 26 H (21-25) mmol/L ABG Total CO2 26 H 27 H 25 H (19-24) mmol/L ABG O2 Saturation 99.8 H 99.6 H 99.8 H (94-97) % ABG Hematocrit 31 L 32 L 31 L (34.0-46.0) % ABG Potassium 5.4 H 5.1 H 5.4 H (3.4-4.5) mmol/L ABG Ionized Calcium 3.9 L 4.2 L 4.0 L (4.5-5.3) mg/dL ABG Glucose 132 H 130 H 131 H (75-99) mg/dL Hemoglobin 9.9 L 10.4 L 10.0 L (13.0-17.5) gm/dL Sodium (137-145) mmol/L Chloride (98-107) mmol/L Carbon Dioxide (22-30) mmol/L Creatinine (0.66-1.25) mg/dL Glucose (74-99) mg/dL POC Glucose (mg/dL) (75-99) mg/dL Calcium (8.4-10.2) mg/dL Alkaline Phosphatase (38-126) U/L Total Protein (6.3-8.2) g/dL Albumin (3.5-5.0) g/dL Arterial Blood Potassium 5.4 H 5.1 H 5.4 H (3.4-4.5) mmol/L Arterial Blood Glucose 132 H 130 H 131 H (75-99) mg/dL Crossmatch 08/25/21 08/25/21 08/25/21 Range/Units 12:38 13:00 13:00 WBC (3.8-10.6) k/uL RBC 3.83 L (4.30-5.90) m/uL Hgb 12.8 L (13.0-17.5) gm/dL Hct 36.9 L (39.0-53.0) % Plt Count 114 L (150-450) k/uL Neutrophils # 9.2 H (1.3-7.7) k/uL Lymphocytes # 0.6 L (1.0-4.8) k/uL Monocytes # (0-1.0) k/uL PT 12.1 H (9.0-12.0) sec ABG pH 7.33 L (7.35-7.45) ABG pCO2 47 H (35-45) mmHg ABG pO2 146 H (83-108) mmHg ABG HCO3 (21-25) mmol/L ABG Total CO2 26 H (19-24) mmol/L ABG O2 Saturation 99.0 H (94-97) % ABG Hematocrit (34.0-46.0) % ABG Potassium (3.4-4.5) mmol/L ABG Ionized Calcium 4.4 L (4.5-5.3) mg/dL ABG Glucose 126 H (75-99) mg/dL Hemoglobin 12.2 L (13.0-17.5) gm/dL Sodium (137-145) mmol/L Chloride (98-107) mmol/L Carbon Dioxide (22-30) mmol/L Creatinine (0.66-1.25) mg/dL Glucose (74-99) mg/dL POC Glucose (mg/dL) (75-99) mg/dL Calcium (8.4-10.2) mg/dL Alkaline Phosphatase (38-126) U/L Total Protein (6.3-8.2) g/dL Albumin (3.5-5.0) g/dL Arterial Blood Potassium (3.4-4.5) mmol/L Arterial Blood Glucose 126 H (75-99) mg/dL Crossmatch 08/25/21 08/25/21 08/25/21 Range/Units 13:00 13:08 13:30 WBC (3.8-10.6) k/uL RBC (4.30-5.90) m/uL Hgb (13.0-17.5) gm/dL Hct (39.0-53.0) % Plt Count (150-450) k/uL Neutrophils # (1.3-7.7) k/uL Lymphocytes # (1.0-4.8) k/uL Monocytes # (0-1.0) k/uL PT (9.0-12.0) sec ABG pH 7.29 L (7.35-7.45) ABG pCO2 51 H (35-45) mmHg ABG pO2 390 H (83-108) mmHg ABG HCO3 (21-25) mmol/L ABG Total CO2 26 H (19-24) mmol/L ABG O2 Saturation 99.6 H (94-97) % ABG Hematocrit (34.0-46.0) % ABG Potassium (3.4-4.5) mmol/L ABG Ionized Calcium (4.5-5.3) mg/dL ABG Glucose (75-99) mg/dL Hemoglobin (13.0-17.5) gm/dL Sodium 136 L (137-145) mmol/L Chloride 109 H (98-107) mmol/L Carbon Dioxide (22-30) mmol/L Creatinine 0.62 L (0.66-1.25) mg/dL Glucose 117 H (74-99) mg/dL POC Glucose (mg/dL) 120 H (75-99) mg/dL Calcium 7.4 L (8.4-10.2) mg/dL Alkaline Phosphatase 33 L (38-126) U/L Total Protein 4.7 L (6.3-8.2) g/dL Albumin 2.6 L (3.5-5.0) g/dL Arterial Blood Potassium (3.4-4.5) mmol/L Arterial Blood Glucose (75-99) mg/dL Crossmatch 08/25/21 08/25/21 08/25/21 Range/Units 14:01 15:08 15:40 WBC 11.4 H (3.8-10.6) k/uL RBC 3.73 L (4.30-5.90) m/uL Hgb 12.3 L (13.0-17.5) gm/dL Hct 35.9 L (39.0-53.0) % Plt Count 108 L (150-450) k/uL Neutrophils # 9.9 H (1.3-7.7) k/uL Lymphocytes # 0.4 L (1.0-4.8) k/uL Monocytes # (0-1.0) k/uL PT (9.0-12.0) sec ABG pH (7.35-7.45) ABG pCO2 (35-45) mmHg ABG pO2 (83-108) mmHg ABG HCO3 (21-25) mmol/L ABG Total CO2 (19-24) mmol/L ABG O2 Saturation (94-97) % ABG Hematocrit (34.0-46.0) % ABG Potassium (3.4-4.5) mmol/L ABG Ionized Calcium (4.5-5.3) mg/dL ABG Glucose (75-99) mg/dL Hemoglobin (13.0-17.5) gm/dL Sodium (137-145) mmol/L Chloride (98-107) mmol/L Carbon Dioxide (22-30) mmol/L Creatinine (0.66-1.25) mg/dL Glucose (74-99) mg/dL POC Glucose (mg/dL) 114 H 112 H (75-99) mg/dL Calcium (8.4-10.2) mg/dL Alkaline Phosphatase (38-126) U/L Total Protein (6.3-8.2) g/dL Albumin (3.5-5.0) g/dL Arterial Blood Potassium (3.4-4.5) mmol/L Arterial Blood Glucose (75-99) mg/dL Crossmatch 08/25/21 08/25/21 08/25/21 Range/Units 16:05 17:14 18:04 WBC (3.8-10.6) k/uL RBC (4.30-5.90) m/uL Hgb (13.0-17.5) gm/dL Hct (39.0-53.0) % Plt Count (150-450) k/uL Neutrophils # (1.3-7.7) k/uL Lymphocytes # (1.0-4.8) k/uL Monocytes # (0-1.0) k/uL PT (9.0-12.0) sec ABG pH (7.35-7.45) ABG pCO2 (35-45) mmHg ABG pO2 (83-108) mmHg ABG HCO3 (21-25) mmol/L ABG Total CO2 (19-24) mmol/L ABG O2 Saturation (94-97) % ABG Hematocrit (34.0-46.0) % ABG Potassium (3.4-4.5) mmol/L ABG Ionized Calcium (4.5-5.3) mg/dL ABG Glucose (75-99) mg/dL Hemoglobin (13.0-17.5) gm/dL Sodium (137-145) mmol/L Chloride (98-107) mmol/L Carbon Dioxide (22-30) mmol/L Creatinine (0.66-1.25) mg/dL Glucose (74-99) mg/dL POC Glucose (mg/dL) 112 H 143 H 155 H (75-99) mg/dL Calcium (8.4-10.2) mg/dL Alkaline Phosphatase (38-126) U/L Total Protein (6.3-8.2) g/dL Albumin (3.5-5.0) g/dL Arterial Blood Potassium (3.4-4.5) mmol/L Arterial Blood Glucose (75-99) mg/dL Crossmatch 08/25/21 08/25/21 08/25/21 Range/Units 18:48 18:58 19:03 WBC (3.8-10.6) k/uL RBC 3.56 L (4.30-5.90) m/uL Hgb 11.7 L (13.0-17.5) gm/dL Hct 34.6 L (39.0-53.0) % Plt Count 109 L (150-450) k/uL Neutrophils # 9.1 H (1.3-7.7) k/uL Lymphocytes # 0.3 L (1.0-4.8) k/uL Monocytes # (0-1.0) k/uL PT (9.0-12.0) sec ABG pH (7.35-7.45) ABG pCO2 (35-45) mmHg ABG pO2 139 H (83-108) mmHg ABG HCO3 (21-25) mmol/L ABG Total CO2 (19-24) mmol/L ABG O2 Saturation 98.8 H (94-97) % ABG Hematocrit (34.0-46.0) % ABG Potassium (3.4-4.5) mmol/L ABG Ionized Calcium (4.5-5.3) mg/dL ABG Glucose (75-99) mg/dL Hemoglobin (13.0-17.5) gm/dL Sodium (137-145) mmol/L Chloride (98-107) mmol/L Carbon Dioxide (22-30) mmol/L Creatinine (0.66-1.25) mg/dL Glucose (74-99) mg/dL POC Glucose (mg/dL) 154 H (75-99) mg/dL Calcium (8.4-10.2) mg/dL Alkaline Phosphatase (38-126) U/L Total Protein (6.3-8.2) g/dL Albumin (3.5-5.0) g/dL Arterial Blood Potassium (3.4-4.5) mmol/L Arterial Blood Glucose (75-99) mg/dL Crossmatch 08/25/21 08/25/21 08/25/21 Range/Units 19:51 21:01 21:58 WBC (3.8-10.6) k/uL RBC (4.30-5.90) m/uL Hgb (13.0-17.5) gm/dL Hct (39.0-53.0) % Plt Count (150-450) k/uL Neutrophils # (1.3-7.7) k/uL Lymphocytes # (1.0-4.8) k/uL Monocytes # (0-1.0) k/uL PT (9.0-12.0) sec ABG pH (7.35-7.45) ABG pCO2 (35-45) mmHg ABG pO2 (83-108) mmHg ABG HCO3 (21-25) mmol/L ABG Total CO2 (19-24) mmol/L ABG O2 Saturation (94-97) % ABG Hematocrit (34.0-46.0) % ABG Potassium (3.4-4.5) mmol/L ABG Ionized Calcium (4.5-5.3) mg/dL ABG Glucose (75-99) mg/dL Hemoglobin (13.0-17.5) gm/dL Sodium (137-145) mmol/L Chloride (98-107) mmol/L Carbon Dioxide (22-30) mmol/L Creatinine (0.66-1.25) mg/dL Glucose (74-99) mg/dL POC Glucose (mg/dL) 169 H 151 H 149 H (75-99) mg/dL Calcium (8.4-10.2) mg/dL Alkaline Phosphatase (38-126) U/L Total Protein (6.3-8.2) g/dL Albumin (3.5-5.0) g/dL Arterial Blood Potassium (3.4-4.5) mmol/L Arterial Blood Glucose (75-99) mg/dL Crossmatch 08/25/21 08/25/21 08/26/21 Range/Units 23:01 23:54 01:02 WBC (3.8-10.6) k/uL RBC (4.30-5.90) m/uL Hgb (13.0-17.5) gm/dL Hct (39.0-53.0) % Plt Count (150-450) k/uL Neutrophils # (1.3-7.7) k/uL Lymphocytes # (1.0-4.8) k/uL Monocytes # (0-1.0) k/uL PT (9.0-12.0) sec ABG pH (7.35-7.45) ABG pCO2 (35-45) mmHg ABG pO2 (83-108) mmHg ABG HCO3 (21-25) mmol/L ABG Total CO2 (19-24) mmol/L ABG O2 Saturation (94-97) % ABG Hematocrit (34.0-46.0) % ABG Potassium (3.4-4.5) mmol/L ABG Ionized Calcium (4.5-5.3) mg/dL ABG Glucose (75-99) mg/dL Hemoglobin (13.0-17.5) gm/dL Sodium (137-145) mmol/L Chloride (98-107) mmol/L Carbon Dioxide (22-30) mmol/L Creatinine (0.66-1.25) mg/dL Glucose (74-99) mg/dL POC Glucose (mg/dL) 143 H 136 H 131 H (75-99) mg/dL Calcium (8.4-10.2) mg/dL Alkaline Phosphatase (38-126) U/L Total Protein (6.3-8.2) g/dL Albumin (3.5-5.0) g/dL Arterial Blood Potassium (3.4-4.5) mmol/L Arterial Blood Glucose (75-99) mg/dL Crossmatch 08/26/21 08/26/21 08/26/21 Range/Units 02:01 02:56 04:00 WBC 13.1 H (3.8-10.6) k/uL RBC 3.56 L (4.30-5.90) m/uL Hgb 11.8 L (13.0-17.5) gm/dL Hct 34.1 L (39.0-53.0) % Plt Count 112 L (150-450) k/uL Neutrophils # 11.3 H (1.3-7.7) k/uL Lymphocytes # 0.6 L (1.0-4.8) k/uL Monocytes # 1.1 H (0-1.0) k/uL PT (9.0-12.0) sec ABG pH (7.35-7.45) ABG pCO2 (35-45) mmHg ABG pO2 (83-108) mmHg ABG HCO3 (21-25) mmol/L ABG Total CO2 (19-24) mmol/L ABG O2 Saturation (94-97) % ABG Hematocrit (34.0-46.0) % ABG Potassium (3.4-4.5) mmol/L ABG Ionized Calcium (4.5-5.3) mg/dL ABG Glucose (75-99) mg/dL Hemoglobin (13.0-17.5) gm/dL Sodium (137-145) mmol/L Chloride (98-107) mmol/L Carbon Dioxide (22-30) mmol/L Creatinine (0.66-1.25) mg/dL Glucose (74-99) mg/dL POC Glucose (mg/dL) 121 H 120 H (75-99) mg/dL Calcium (8.4-10.2) mg/dL Alkaline Phosphatase (38-126) U/L Total Protein (6.3-8.2) g/dL Albumin (3.5-5.0) g/dL Arterial Blood Potassium (3.4-4.5) mmol/L Arterial Blood Glucose (75-99) mg/dL Crossmatch 08/26/21 08/26/21 08/26/21 Range/Units 04:00 04:01 05:07 WBC (3.8-10.6) k/uL RBC (4.30-5.90) m/uL Hgb (13.0-17.5) gm/dL Hct (39.0-53.0) % Plt Count (150-450) k/uL Neutrophils # (1.3-7.7) k/uL Lymphocytes # (1.0-4.8) k/uL Monocytes # (0-1.0) k/uL PT (9.0-12.0) sec ABG pH (7.35-7.45) ABG pCO2 (35-45) mmHg ABG pO2 (83-108) mmHg ABG HCO3 (21-25) mmol/L ABG Total CO2 (19-24) mmol/L ABG O2 Saturation (94-97) % ABG Hematocrit (34.0-46.0) % ABG Potassium (3.4-4.5) mmol/L ABG Ionized Calcium (4.5-5.3) mg/dL ABG Glucose (75-99) mg/dL Hemoglobin (13.0-17.5) gm/dL Sodium (137-145) mmol/L Chloride 108 H (98-107) mmol/L Carbon Dioxide 20 L (22-30) mmol/L Creatinine (0.66-1.25) mg/dL Glucose 113 H (74-99) mg/dL POC Glucose (mg/dL) 119 H 109 H (75-99) mg/dL Calcium 7.6 L (8.4-10.2) mg/dL Alkaline Phosphatase 29 L (38-126) U/L Total Protein 5.6 L (6.3-8.2) g/dL Albumin (3.5-5.0) g/dL Arterial Blood Potassium (3.4-4.5) mmol/L Arterial Blood Glucose (75-99) mg/dL Crossmatch 08/26/21 08/26/21 08/26/21 Range/Units 06:17 07:13 08:16 WBC (3.8-10.6) k/uL RBC (4.30-5.90) m/uL Hgb (13.0-17.5) gm/dL Hct (39.0-53.0) % Plt Count (150-450) k/uL Neutrophils # (1.3-7.7) k/uL Lymphocytes # (1.0-4.8) k/uL Monocytes # (0-1.0) k/uL PT (9.0-12.0) sec ABG pH (7.35-7.45) ABG pCO2 (35-45) mmHg ABG pO2 (83-108) mmHg ABG HCO3 (21-25) mmol/L ABG Total CO2 (19-24) mmol/L ABG O2 Saturation (94-97) % ABG Hematocrit (34.0-46.0) % ABG Potassium (3.4-4.5) mmol/L ABG Ionized Calcium (4.5-5.3) mg/dL ABG Glucose (75-99) mg/dL Hemoglobin (13.0-17.5) gm/dL Sodium (137-145) mmol/L Chloride (98-107) mmol/L Carbon Dioxide (22-30) mmol/L Creatinine (0.66-1.25) mg/dL Glucose (74-99) mg/dL POC Glucose (mg/dL) 157 H 120 H 119 H (75-99) mg/dL Calcium (8.4-10.2) mg/dL Alkaline Phosphatase (38-126) U/L Total Protein (6.3-8.2) g/dL Albumin (3.5-5.0) g/dL Arterial Blood Potassium (3.4-4.5) mmol/L Arterial Blood Glucose (75-99) mg/dL Crossmatch Thrombosis Risk Factor Assmnt - Choose All That Apply Each Factor Represents 1 point: Abnormal pulmonary function (COPD) Other Risk Factors: Yes Each Risk Factor Represents 2 Points: Central venous access Each Risk Factor Represents 3 Points: Age 75 years or older Other congenital or acquired thrombophilia - If yes, enter type in comment: No Each Risk Factor Represents 5 Points: Major surgery lasting over 3 hours Thrombosis Risk Factor Assessment Total Risk Factor Score: 11 Thrombosis Risk Factor Assessment Level: High Risk Assessment and Plan Assessment: assessment: #1severe mitral valve regurgitation, severe prolapse status post Repair of complex mitral valve #2 congestive heart failure with preserved ejection fraction #3 COPD not in acute exacerbation #4 hyperlipidemia #5 essential hypertension #6 thrombocytopenia most likely reactive #7 history of basal cell cancer #8 history of tobacco dependence #9 trace 9 mm right apical pneumothorax/left artifact versus apical pneumothorax measuring 6 mm plan: -admit to ICU level of care -Aspiration/fall precaution -Continue management as per ICU protocol -encourage incentive spirometry, daily x-rays -Replete electrolytes when necessary -maintain inpatient glucose levels less than 180 -Currently has Quinones catheter in place for strict input/output recommending discontinue soon as possible to prevent nosocomial infection -Continue with right pleural chest tube as per management per c ardiology/pulmonary -dvt px: heparin TID -PT/OT when allowable
[2021-08-26 11:38] LABS: Glucose,Whole Blood 106 mg/dL (75-99)
--- NOTE | 2021-08-26 12:20 | P.PN ---
Subjective 76-year-old gentleman who underwent mitral valve repair for severe mitral regurgitation. The #1 is doing well Extubated in sinus rhythm hemodynamically stable On exam comfortable at rest vital signs are stable chest exam reveals good air entry bilaterally heart exam reveals first and second heart sounds no gallop has a no murmur abdomen is soft exam extremities did not reveal any edema per for pulses are felt Assessment and plan: Severe mitral regurgitation status post mitral valve repair Patient is doing well advised on incentive spirometry Continue current medications Objective - Vital Signs Vital signs: Vital Signs Temp 99.3 F 08/26/21 08:00 Pulse 80 08/26/21 12:03 Resp 21 08/26/21 09:00 BP 105/62 08/26/21 09:00 Pulse Ox 94 L 08/26/21 09:00 Intake & Output 08/25/21 08/26/21 08/26/21 18:59 06:59 18:59 Intake Total 9337.673 3305.063 621.890 Output Total 2945 779 62 Balance -1652.050 923.063 559.890 Weight 76.8 kg Intake: IV 182 1585.70 605.67 0.9 NaCl- 550 50 ACETAMINOPHEN IV (For NPO 100 ) 1,000 mg In Empty Bag 1 bag @ 400 mls/hr IVPB Q6HR [facility] Rx#:[id number] Albumin 250 500 Amiodarone 450 mg In 166.70 16.67 Dextrose 5% in Water 250 ml @ 0.5 MG/MIN 16.667 mls/hr IV .Q15H PRN Rx#: [id number] CO/CI Injectate 130 370 30 Pressure Bag 99 9 ceFAZolin 2 gm In Sodium 50 Chloride 0.9% 50 ml @ 100 mls/hr IVPB Q8HR [facility] Rx# :[id number] Intake, IV Titration 1110.950 116.363 16.220 Amount ACETAMINOPHEN IV (For NPO 100 ) 1,000 mg In Empty Bag 1 bag @ 400 mls/hr IVPB Q6HR [facility] Rx#:[id number] Albumin Human 5% 250 ml 500 In Empty Bag 1 bag @ 250 mls/hr IVPB Q1HR PRN Rx#: [id number] Amiodarone 360 mg In 133.2 33.3 Dextrose 5% in Water 200 ml @ 1 MG/MIN 34.533 mls/ hr IV .Q6H PRN Rx#: [id number] Dexmedetomidine/0.9% NaCl 12.991 (Pmx) 400 mcg In Empty Bag 1 bag @ Titrate IV . Q0M [facility] Rx#:[id number] Insulin Regular 100 unit 33.063 16.220 In Sodium Chloride 0.9% 100 ml @ Per Protocol IV .Q0M [facility] Rx#:[id number] Sodium Chloride 0.9% 1, 250 50 000 ml @ 50 mls/hr IV . Q20H [facility] Rx#:[id number] ceFAZolin 2 gm In Sodium 50 Chloride 0.9% 50 ml @ 100 mls/hr IVPB Q8HR [facility] Rx# :[id number] propofoL 1,000 mg In 64.759 Empty Bag 1 bag @ Titrate IV .Q0M [facility] Rx#: [id number] Output: Chest Tube Drainage 475 290 20 Mediastinal 335 170 0 Rt Pleural 140 120 20 Urine 970 439 42 Emesis 50 Estimated Blood Loss 1500 Other: Voiding Method Indwelling Catheter Indwelling Catheter ABP, PAP, CO, CI - Last Documented Arterial Blood Pressure 122/50 Pulmonary Artery Pressure 22/9 Cardiac Output 5.4 Cardiac Index 2.7 - Labs CBC & Chem 7: 08/26/21 04:00 08/26/21 04:00 Labs: Abnormal Lab Results - Last 24 Hours (Table) 08/21/21 08/25/21 08/25/21 Range/Units 09:00 12:38 13:00 WBC (3.8-10.6) k/uL RBC 3.83 L (4.30-5.90) m/uL Hgb 12.8 L (13.0-17.5) gm/dL Hct 36.9 L (39.0-53.0) % Plt Count 114 L (150-450) k/uL Neutrophils # 9.2 H (1.3-7.7) k/uL Lymphocytes # 0.6 L (1.0-4.8) k/uL Monocytes # (0-1.0) k/uL PT (9.0-12.0) sec ABG pH 7.33 L (7.35-7.45) ABG pCO2 47 H (35-45) mmHg ABG pO2 146 H (83-108) mmHg ABG Total CO2 26 H (19-24) mmol/L ABG O2 Saturation 99.0 H (94-97) % ABG Ionized Calcium 4.4 L (4.5-5.3) mg/dL ABG Glucose 126 H (75-99) mg/dL Hemoglobin 12.2 L (13.0-17.5) gm/dL Sodium (137-145) mmol/L Chloride (98-107) mmol/L Carbon Dioxide (22-30) mmol/L Creatinine (0.66-1.25) mg/dL Glucose (74-99) mg/dL POC Glucose (mg/dL) (75-99) mg/dL Calcium (8.4-10.2) mg/dL Alkaline Phosphatase (38-126) U/L Total Protein (6.3-8.2) g/dL Albumin (3.5-5.0) g/dL Arterial Blood Glucose 126 H (75-99) mg/dL Crossmatch See Detail 08/25/21 08/25/21 08/25/21 Range/Units 13:00 13:00 13:08 WBC (3.8-10.6) k/uL RBC (4.30-5.90) m/uL Hgb (13.0-17.5) gm/dL Hct (39.0-53.0) % Plt Count (150-450) k/uL Neutrophils # (1.3-7.7) k/uL Lymphocytes # (1.0-4.8) k/uL Monocytes # (0-1.0) k/uL PT 12.1 H (9.0-12.0) sec ABG pH (7.35-7.45) ABG pCO2 (35-45) mmHg ABG pO2 (83-108) mmHg ABG Total CO2 (19-24) mmol/L ABG O2 Saturation (94-97) % ABG Ionized Calcium (4.5-5.3) mg/dL ABG Glucose (75-99) mg/dL Hemoglobin (13.0-17.5) gm/dL Sodium 136 L (137-145) mmol/L Chloride 109 H (98-107) mmol/L Carbon Dioxide (22-30) mmol/L Creatinine 0.62 L (0.66-1.25) mg/dL Glucose 117 H (74-99) mg/dL POC Glucose (mg/dL) 120 H (75-99) mg/dL Calcium 7.4 L (8.4-10.2) mg/dL Alkaline Phosphatase 33 L (38-126) U/L Total Protein 4.7 L (6.3-8.2) g/dL Albumin 2.6 L (3.5-5.0) g/dL Arterial Blood Glucose (75-99) mg/dL Crossmatch 08/25/21 08/25/21 08/25/21 Range/Units 13:30 14:01 15:08 WBC (3.8-10.6) k/uL RBC (4.30-5.90) m/uL Hgb (13.0-17.5) gm/dL Hct (39.0-53.0) % Plt Count (150-450) k/uL Neutrophils # (1.3-7.7) k/uL Lymphocytes # (1.0-4.8) k/uL Monocytes # (0-1.0) k/uL PT (9.0-12.0) sec ABG pH 7.29 L (7.35-7.45) ABG pCO2 51 H (35-45) mmHg ABG pO2 390 H (83-108) mmHg ABG Total CO2 26 H (19-24) mmol/L ABG O2 Saturation 99.6 H (94-97) % ABG Ionized Calcium (4.5-5.3) mg/dL ABG Glucose (75-99) mg/dL Hemoglobin (13.0-17.5) gm/dL Sodium (137-145) mmol/L Chloride (98-107) mmol/L Carbon Dioxide (22-30) mmol/L Creatinine (0.66-1.25) mg/dL Glucose (74-99) mg/dL POC Glucose (mg/dL) 114 H 112 H (75-99) mg/dL Calcium (8.4-10.2) mg/dL Alkaline Phosphatase (38-126) U/L Total Protein (6.3-8.2) g/dL Albumin (3.5-5.0) g/dL Arterial Blood Glucose (75-99) mg/dL Crossmatch 08/25/21 08/25/21 08/25/21 Range/Units 15:40 16:05 17:14 WBC 11.4 H (3.8-10.6) k/uL RBC 3.73 L (4.30-5.90) m/uL Hgb 12.3 L (13.0-17.5) gm/dL Hct 35.9 L (39.0-53.0) % Plt Count 108 L (150-450) k/uL Neutrophils # 9.9 H (1.3-7.7) k/uL Lymphocytes # 0.4 L (1.0-4.8) k/uL Monocytes # (0-1.0) k/uL PT (9.0-12.0) sec ABG pH (7.35-7.45) ABG pCO2 (35-45) mmHg ABG pO2 (83-108) mmHg ABG Total CO2 (19-24) mmol/L ABG O2 Saturation (94-97) % ABG Ionized Calcium (4.5-5.3) mg/dL ABG Glucose (75-99) mg/dL Hemoglobin (13.0-17.5) gm/dL Sodium (137-145) mmol/L Chloride (98-107) mmol/L Carbon Dioxide (22-30) mmol/L Creatinine (0.66-1.25) mg/dL Glucose (74-99) mg/dL POC Glucose (mg/dL) 112 H 143 H (75-99) mg/dL Calcium (8.4-10.2) mg/dL Alkaline Phosphatase (38-126) U/L Total Protein (6.3-8.2) g/dL Albumin (3.5-5.0) g/dL Arterial Blood Glucose (75-99) mg/dL Crossmatch 08/25/21 08/25/21 08/25/21 Range/Units 18:04 18:48 18:58 WBC (3.8-10.6) k/uL RBC 3.56 L (4.30-5.90) m/uL Hgb 11.7 L (13.0-17.5) gm/dL Hct 34.6 L (39.0-53.0) % Plt Count 109 L (150-450) k/uL Neutrophils # 9.1 H (1.3-7.7) k/uL Lymphocytes # 0.3 L (1.0-4.8) k/uL Monocytes # (0-1.0) k/uL PT (9.0-12.0) sec ABG pH (7.35-7.45) ABG pCO2 (35-45) mmHg ABG pO2 139 H (83-108) mmHg ABG Total CO2 (19-24) mmol/L ABG O2 Saturation 98.8 H (94-97) % ABG Ionized Calcium (4.5-5.3) mg/dL ABG Glucose (75-99) mg/dL Hemoglobin (13.0-17.5) gm/dL Sodium (137-145) mmol/L Chloride (98-107) mmol/L Carbon Dioxide (22-30) mmol/L Creatinine (0.66-1.25) mg/dL Glucose (74-99) mg/dL POC Glucose (mg/dL) 155 H (75-99) mg/dL Calcium (8.4-10.2) mg/dL Alkaline Phosphatase (38-126) U/L Total Protein (6.3-8.2) g/dL Albumin (3.5-5.0) g/dL Arterial Blood Glucose (75-99) mg/dL Crossmatch 08/25/21 08/25/21 08/25/21 Range/Units 19:03 19:51 21:01 WBC (3.8-10.6) k/uL RBC (4.30-5.90) m/uL Hgb (13.0-17.5) gm/dL Hct (39.0-53.0) % Plt Count (150-450) k/uL Neutrophils # (1.3-7.7) k/uL Lymphocytes # (1.0-4.8) k/uL Monocytes # (0-1.0) k/uL PT (9.0-12.0) sec ABG pH (7.35-7.45) ABG pCO2 (35-45) mmHg ABG pO2 (83-108) mmHg ABG Total CO2 (19-24) mmol/L ABG O2 Saturation (94-97) % ABG Ionized Calcium (4.5-5.3) mg/dL ABG Glucose (75-99) mg/dL Hemoglobin (13.0-17.5) gm/dL Sodium (137-145) mmol/L Chloride (98-107) mmol/L Carbon Dioxide (22-30) mmol/L Creatinine (0.66-1.25) mg/dL Glucose (74-99) mg/dL POC Glucose (mg/dL) 154 H 169 H 151 H (75-99) mg/dL Calcium (8.4-10.2) mg/dL Alkaline Phosphatase (38-126) U/L Total Protein (6.3-8.2) g/dL Albumin (3.5-5.0) g/dL Arterial Blood Glucose (75-99) mg/dL Crossmatch 08/25/21 08/25/21 08/25/21 Range/Units 21:58 23:01 23:54 WBC (3.8-10.6) k/uL RBC (4.30-5.90) m/uL Hgb (13.0-17.5) gm/dL Hct (39.0-53.0) % Plt Count (150-450) k/uL Neutrophils # (1.3-7.7) k/uL Lymphocytes # (1.0-4.8) k/uL Monocytes # (0-1.0) k/uL PT (9.0-12.0) sec ABG pH (7.35-7.45) ABG pCO2 (35-45) mmHg ABG pO2 (83-108) mmHg ABG Total CO2 (19-24) mmol/L ABG O2 Saturation (94-97) % ABG Ionized Calcium (4.5-5.3) mg/dL ABG Glucose (75-99) mg/dL Hemoglobin (13.0-17.5) gm/dL Sodium (137-145) mmol/L Chloride (98-107) mmol/L Carbon Dioxide (22-30) mmol/L Creatinine (0.66-1.25) mg/dL Glucose (74-99) mg/dL POC Glucose (mg/dL) 149 H 143 H 136 H (75-99) mg/dL Calcium (8.4-10.2) mg/dL Alkaline Phosphatase (38-126) U/L Total Protein (6.3-8.2) g/dL Albumin (3.5-5.0) g/dL Arterial Blood Glucose (75-99) mg/dL Crossmatch 08/26/21 08/26/21 08/26/21 Range/Units 01:02 02:01 02:56 WBC (3.8-10.6) k/uL RBC (4.30-5.90) m/uL Hgb (13.0-17.5) gm/dL Hct (39.0-53.0) % Plt Count (150-450) k/uL Neutrophils # (1.3-7.7) k/uL Lymphocytes # (1.0-4.8) k/uL Monocytes # (0-1.0) k/uL PT (9.0-12.0) sec ABG pH (7.35-7.45) ABG pCO2 (35-45) mmHg ABG pO2 (83-108) mmHg ABG Total CO2 (19-24) mmol/L ABG O2 Saturation (94-97) % ABG Ionized Calcium (4.5-5.3) mg/dL ABG Glucose (75-99) mg/dL Hemoglobin (13.0-17.5) gm/dL Sodium (137-145) mmol/L Chloride (98-107) mmol/L Carbon Dioxide (22-30) mmol/L Creatinine (0.66-1.25) mg/dL Glucose (74-99) mg/dL POC Glucose (mg/dL) 131 H 121 H 120 H (75-99) mg/dL Calcium (8.4-10.2) mg/dL Alkaline Phosphatase (38-126) U/L Total Protein (6.3-8.2) g/dL Albumin (3.5-5.0) g/dL Arterial Blood Glucose (75-99) mg/dL Crossmatch 08/26/21 08/26/21 08/26/21 Range/Units 04:00 04:00 04:01 WBC 13.1 H (3.8-10.6) k/uL RBC 3.56 L (4.30-5.90) m/uL Hgb 11.8 L (13.0-17.5) gm/dL Hct 34.1 L (39.0-53.0) % Plt Count 112 L (150-450) k/uL Neutrophils # 11.3 H (1.3-7.7) k/uL Lymphocytes # 0.6 L (1.0-4.8) k/uL Monocytes # 1.1 H (0-1.0) k/uL PT (9.0-12.0) sec ABG pH (7.35-7.45) ABG pCO2 (35-45) mmHg ABG pO2 (83-108) mmHg ABG Total CO2 (19-24) mmol/L ABG O2 Saturation (94-97) % ABG Ionized Calcium (4.5-5.3) mg/dL ABG Glucose (75-99) mg/dL Hemoglobin (13.0-17.5) gm/dL Sodium (137-145) mmol/L Chloride 108 H (98-107) mmol/L Carbon Dioxide 20 L (22-30) mmol/L Creatinine (0.66-1.25) mg/dL Glucose 113 H (74-99) mg/dL POC Glucose (mg/dL) 119 H (75-99) mg/dL Calcium 7.6 L (8.4-10.2) mg/dL Alkaline Phosphatase 29 L (38-126) U/L Total Protein 5.6 L (6.3-8.2) g/dL Albumin (3.5-5.0) g/dL Arterial Blood Glucose (75-99) mg/dL Crossmatch 08/26/21 08/26/21 08/26/21 Range/Units 05:07 06:17 07:13 WBC (3.8-10.6) k/uL RBC (4.30-5.90) m/uL Hgb (13.0-17.5) gm/dL Hct (39.0-53.0) % Plt Count (150-450) k/uL Neutrophils # (1.3-7.7) k/uL Lymphocytes # (1.0-4.8) k/uL Monocytes # (0-1.0) k/uL PT (9.0-12.0) sec ABG pH (7.35-7.45) ABG pCO2 (35-45) mmHg ABG pO2 (83-108) mmHg ABG Total CO2 (19-24) mmol/L ABG O2 Saturation (94-97) % ABG Ionized Calcium (4.5-5.3) mg/dL ABG Glucose (75-99) mg/dL Hemoglobin (13.0-17.5) gm/dL Sodium (137-145) mmol/L Chloride (98-107) mmol/L Carbon Dioxide (22-30) mmol/L Creatinine (0.66-1.25) mg/dL Glucose (74-99) mg/dL POC Glucose (mg/dL) 109 H 157 H 120 H (75-99) mg/dL Calcium (8.4-10.2) mg/dL Alkaline Phosphatase (38-126) U/L Total Protein (6.3-8.2) g/dL Albumin (3.5-5.0) g/dL Arterial Blood Glucose (75-99) mg/dL Crossmatch 08/26/21 08/26/21 08/26/21 Range/Units 08:16 10:00 11:26 WBC (3.8-10.6) k/uL RBC (4.30-5.90) m/uL Hgb (13.0-17.5) gm/dL Hct (39.0-53.0) % Plt Count (150-450) k/uL Neutrophils # (1.3-7.7) k/uL Lymphocytes # (1.0-4.8) k/uL Monocytes # (0-1.0) k/uL PT (9.0-12.0) sec ABG pH (7.35-7.45) ABG pCO2 (35-45) mmHg ABG pO2 (83-108) mmHg ABG Total CO2 (19-24) mmol/L ABG O2 Saturation (94-97) % ABG Ionized Calcium (4.5-5.3) mg/dL ABG Glucose (75-99) mg/dL Hemoglobin (13.0-17.5) gm/dL Sodium (137-145) mmol/L Chloride (98-107) mmol/L Carbon Dioxide (22-30) mmol/L Creatinine (0.66-1.25) mg/dL Glucose (74-99) mg/dL POC Glucose (mg/dL) 119 H 132 H 106 H (75-99) mg/dL Calcium (8.4-10.2) mg/dL Alkaline Phosphatase (38-126) U/L Total Protein (6.3-8.2) g/dL Albumin (3.5-5.0) g/dL Arterial Blood Glucose (75-99) mg/dL Crossmatch
[2021-08-26 12:50] VITALS: BMI 22.9
[2021-08-26 12:53] LABS: Glucose,Whole Blood 113 mg/dL (75-99)
[2021-08-26 14:26] LABS: Glucose,Whole Blood 125 mg/dL (75-99)
[2021-08-26 15:29] LABS: Glucose,Whole Blood 114 mg/dL (75-99)
[2021-08-26 16:04] LABS: Glucose,Whole Blood 107 mg/dL (75-99)
[2021-08-26 16:58] LABS: Glucose,Whole Blood 146 mg/dL (75-99)
[2021-08-26] MEDS: HYDROcodone/APAP 5-325MG 1 EACH TAB PO PRN ×2 (17:54→21:38)
[2021-08-26 17:58] LABS: Glucose,Whole Blood 153 mg/dL (75-99)
[2021-08-26 19:09] LABS: Glucose,Whole Blood 111 mg/dL (75-99)
[2021-08-26 20:11] LABS: Glucose,Whole Blood 108 mg/dL (75-99)
[2021-08-26 21:31] LABS: Glucose,Whole Blood 125 mg/dL (75-99)
[2021-08-26] MEDS: SENNOSIDES-DOCUSATE SODIUM 1 EACH TAB PO SCH (21:38)
[2021-08-26] MEDS: LATANOPROST 0.005% OPHTH DROPS 2.5 ML BTL BOTH EYES SCH (22:07)
[2021-08-26 22:27] LABS: Glucose,Whole Blood 124 mg/dL (75-99)
[2021-08-26 23:22] LABS: Glucose,Whole Blood 140 mg/dL (75-99)
[2021-08-27 00:06] LABS: Glucose,Whole Blood 145 mg/dL (75-99)
[2021-08-27] MEDS: HEPARIN SODIUM,PORCINE/PF 5,000 UNIT/0.5 ML SYRINGE SQ SCH ×4 (00:07→23:38)
[2021-08-27] MEDS ORDERED: AMIODARONE 360 MG in DEXTROSE 5% IN WATER 200 ML IV ONE ×2 (01:08)
[2021-08-27] MEDS: DEXTROSE 5% IN WATER 100 ML with AMIODARONE 150 MG IV PRN ×3 (01:34→11:06)
[2021-08-27 02:00] LABS: Glucose,Whole Blood 136 mg/dL (75-99)
[2021-08-27 03:11] LABS: Glucose,Whole Blood 103 mg/dL (75-99)
[2021-08-27] MEDS: HYDROcodone/APAP 5-325MG 1 EACH TAB PO PRN ×3 (03:25→21:46)
[2021-08-27 04:22] LABS: Glucose,Whole Blood 160 mg/dL (75-99)
[2021-08-27 05:20] LABS: Glucose,Whole Blood 165 mg/dL (75-99)
[2021-08-27 06:18] LABS: Glucose,Whole Blood 118 mg/dL (75-99)
[2021-08-27 06:22] LABS: Ionized Calcium 4.7 mg/dL (4.5-5.3)
[2021-08-27] MEDS: SODIUM CHLORIDE 0.9% 1,000 ML IV SCH (06:30)
[2021-08-27 06:37] LABS: Basophils % (A) 0 %; Eosinophils # (A) 0.2 k/uL (0-0.7); Eosinophils % (A) 1 %; HCT 36.5 % (39.0-53.0); HGB 12.3 gm/dL (13.0-17.5); Lymphocytes # (A) 1.1 k/uL (1.0-4.8); Lymphocytes % (A) 6 %; MCH 32.6 pg (25.0-35.0); MCHC 33.7 g/dL (31.0-37.0); MCV 96.7 fL (80.0-100.0); Mean Platelet Volume 9.7; Monocytes % (A) 6 %; Neutrophils % (A) 86 %; Platelet Count 114 k/uL (150-450); RBC 3.77 m/uL (4.30-5.90); RDW 13.6 % (11.5-15.5); WBC 18.6 k/uL (3.8-10.6)
[2021-08-27 06:43] LABS: ALT 16 U/L (4-49); AST 47 U/L (17-59); African American GFR (CKD) >90 (>60 ml/min/1.73 sqM); Albumin 3.8 g/dL (3.5-5.0); Alkaline Phosphatase 33 U/L (38-126); Anion Gap 7 mmol/L; Blood Urea Nitrogen 18 mg/dL (9-20); Calcium 8.5 mg/dL (8.4-10.2); Carbon Dioxide 21 mmol/L (22-30); Chloride 108 mmol/L (98-107); Glucose 118 mg/dL (74-99); Non-African American GFR(CKD) 88 (>60 ml/min/1.73 sqM); Sodium 136 mmol/L (137-145); Total Bilirubin 1.2 mg/dL (0.2-1.3); Total Protein 5.9 g/dL (6.3-8.2)
--- NOTE | 2021-08-27 07:14 | XR ---
EXAMINATION TYPE: XR chest 1V portable DATE OF EXAM: 08/27/2021 HISTORY: Shortness of breath. COMPARISON: 08/26/2021 TECHNIQUE: Single view of the chest is submitted. FINDINGS: Tiny right apical pneumothorax and tiny left apical pneumothorax persist estimated at less than 10% e ach. Right basilar chest tube is in place. Patchy basilar densities may reflect atelectasis and/or de veloping infiltrate. The heart is stable. Sternotomy wires mediastinal clips in place. Hilar and mediastinal structures are within normal limits. Degenerative changes are seen of the dorsal spine. IMPRESSION: 1. Tiny right apical pneumothorax and tiny left apical pneumothorax persist estimated at less than 1 0% each. Right basilar chest tube is in place. Patchy basilar densities may reflect atelectasis and/o r developing infiltrate.
[2021-08-27] MEDS: IPRATROPIUM-ALBUTEROL 3 ML NEB INHALATION SCH ×4 (07:44→19:38)
[2021-08-27] MEDS ORDERED: AMIODARONE 450 MG in DEXTROSE 5% IN WATER 250 ML IV SCH ×2 (08:00)
[2021-08-27] MEDS: CLOPIDOGREL 75 MG TAB PO SCH (08:05)
[2021-08-27] MEDS: METOPROLOL TARTRATE 12.5 MG TAB PO SCH ×2 (08:05→21:26)
[2021-08-27] MEDS: ATORVASTATIN 40 MG TAB PO SCH (08:05)
[2021-08-27] MEDS: PANTOPRAZOLE 40 MG/10 ML VIAL IVP SCH (08:05)
[2021-08-27 09:23] LABS: Glucose,Whole Blood 98 mg/dL (75-99)
--- NOTE | 2021-08-27 09:34 | P.PN ---
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 Previous history of tobacco dependence with mild COPD, remote history of pneumonia, peripheral arterial disease with history of abdominal aortic aneurysm, hiatal hernia, hyperlipidemia, basal cell skin cancer approximately 3-4 years ago. Vaccinated and boosted against Covid POD #2 complex mitral valve repair consisting of construction of 6 Primo cords to P2 segment along with posterior annuloplasty using an incomplete AnnuloFlex 36 mm band, exclusion of the left atrial appendage using a 35 mm AtriClip, intraoperative transesophageal echocardiogram and epi-aortic scanning Postoperative acute blood loss anemia and thrombocytopenia, expected given hemodilution and cardiopulmonary bypass pump Paroxysmal atrial fibrillation, known common occurrence after open heart surgery The patient was seen and examined this morning with sitting up in a recliner in no acute distress. States post surgical pain is mostly controlled with current medication regimen, denies shortness of breath. Went into controlled atrial fibrillation last night and was restarted on amiodarone protocol, remains in controlled atrial fibrillation and hemodynamically stable. Patient has had no more episodes of coffee-ground appearing emesis, hemaglobin remains stable. Right internal jugular Cordis, right radial arterial line, right pleural chest t ubes all remaining present. Patient ambulated in the hallway yesterday with physical therapy. No other new concerns. Objective - Vital Signs Vital signs: Vital Signs Temp 98.3 F 08/27/21 04:00 Pulse 95 08/27/21 07:56 Resp 21 08/27/21 07:00 BP 109/78 08/27/21 07:00 Pulse Ox 97 08/27/21 05:00 Intake & Output 08/26/21 08/27/21 08/27/21 18:59 06:59 18:59 Intake Total 2227.287 694.237 56 Output Total 662 460 125 Balance 1565.287 234.237 -69 Weight 76.8 kg 79.1 kg Intake: IV 1894.67 672 56 0.9 NaCl- 600 600 50 Albumin 750 Amiodarone 450 mg In 16.67 Dextrose 5% in Water 250 ml @ 0.5 MG/MIN 16.667 mls/hr IV .Q15H PRN Rx#: [id number] CO/CI Injectate 50 Calcium Gluconate 2 gm In 100 Sodium Chloride 0.9% 100 ml @ 100 mls/hr IVPB ONCE ONE Rx#:[id number] Potassium Chloride 10 meq 200 In Water For Injection 1 100ml.bag @ 100 mls/hr IVPB Q1H [facility] Rx#: [id number] Pressure Bag 78 72 6 ceFAZolin 2 gm In Sodium 100 Chloride 0.9% 50 ml @ 100 mls/hr IVPB Q8HR [facility] Rx# :[id number] Intake, IV Titration 22.617 22.237 Amount Insulin Regular 100 unit 22.617 22.237 In Sodium Chloride 0.9% 100 ml @ Per Protocol IV .Q0M [facility] Rx#:[id number] Oral 310 Output: Chest Tube Drainage 150 110 Mediastinal 30 Rt Pleural 120 110 Urine 512 460 15 Other: Voiding Method Indwelling Catheter Indwelling Catheter ABP, PAP, CO, CI - Last Documented Arterial Blood Pressure 109/57 Pulmonary Artery Pressure 23/11 Cardiac Output 5.4 Cardiac Index 2.7 - Exam CONSTITUTIONAL: Appears comfortable, cooperative, no acute distress RESPIRATORY: Lungs sounds diminished bilaterally. Respirations even, nonlabored. Currently on 4 L nasal cannula with oxygen saturation 95%. Able to achieve 1500 mL on incentive spirometry. Strong nonproductive cough. CARDIOVASCULAR: S1, S2 present. Irregular rate and rhythm, controlled atrial fibrillation on telemetry. Sternum stable. Palpable peripheral pulses bilaterally. No edema present. No calf pain or tenderness noted. Heart hugger in place with patient demonstrating appropriate use. Antiembolism stockings, SCDs present. GASTROINTESTINAL: Abdomen soft, nontender, nondistended. Hypoactive bowel sounds present 4 quadrants. Tolerating full liquids. Positive belching, negative flatus GENITOURINARY: Quinones present draining clear, yellow urine. Output overnight 20-40 mL per hour, 972 mL in the last 24 hours INTEGUMENTARY: Skin is warm and dry with evidence of good perfusion. Anterior chest incision well approximated and covered with dry intact dressing NEUROLOGIC: Cranial nerves II through XII intact MUSKULOSKELETAL: Able to move all extremities, strength equal bilaterally, gait normal PSYCHIATRIC: Alert and oriented to person place and time, appropriate affect, intact judgment and insight INVASIVE LINES AND TUBES: Right pleural chest tubes present and connected to wall suction, no air leaks present. Right pleural chest tube with 110 mL serosanguineous drainage overnight, 200 mL in the last 24 hours. A/V epicardial pacemaker wires present, connected to generator, turned off. Right internal jugular Cordis, right radial arterial line present. - Allied health notes Allied health notes reviewed: nursing - Labs CBC & Chem 7: 08/27/21 06:00 08/27/21 06:00 Labs: Abnormal Lab Results - Last 24 Hours (Table) 08/26/21 08/26/21 08/26/21 Range/Units 10:00 11:26 12:52 WBC (3.8-10.6) k/uL RBC (4.30-5.90) m/uL Hgb (13.0-17.5) gm/dL Hct (39.0-53.0) % Plt Count (150-450) k/uL Neutrophils # (1.3-7.7) k/uL Sodium (137-145) mmol/L Chloride (98-107) mmol/L Carbon Dioxide (22-30) mmol/L Glucose (74-99) mg/dL POC Glucose (mg/dL) 132 H 106 H 113 H (75-99) mg/dL Alkaline Phosphatase (38-126) U/L Total Protein (6.3-8.2) g/dL 08/26/21 08/26/21 08/26/21 Range/Units 14:24 15:28 16:02 WBC (3.8-10.6) k/uL RBC (4.30-5.90) m/uL Hgb (13.0-17.5) gm/dL Hct (39.0-53.0) % Plt Count (150-450) k/uL Neutrophils # (1.3-7.7) k/uL Sodium (137-145) mmol/L Chloride (98-107) mmol/L Carbon Dioxide (22-30) mmol/L Glucose (74-99) mg/dL POC Glucose (mg/dL) 125 H 114 H 107 H (75-99) mg/dL Alkaline Phosphatase (38-126) U/L Total Protein (6.3-8.2) g/dL 08/26/21 08/26/21 08/26/21 Range/Units 16:56 17:56 19:07 WBC (3.8-10.6) k/uL RBC (4.30-5.90) m/uL Hgb (13.0-17.5) gm/dL Hct (39.0-53.0) % Plt Count (150-450) k/uL Neutrophils # (1.3-7.7) k/uL Sodium (137-145) mmol/L Chloride (98-107) mmol/L Carbon Dioxide (22-30) mmol/L Glucose (74-99) mg/dL POC Glucose (mg/dL) 146 H 153 H 111 H (75-99) mg/dL Alkaline Phosphatase (38-126) U/L Total Protein (6.3-8.2) g/dL 08/26/21 08/26/21 08/26/21 Range/Units 20:09 21:30 22:25 WBC (3.8-10.6) k/uL RBC (4.30-5.90) m/uL Hgb (13.0-17.5) gm/dL Hct (39.0-53.0) % Plt Count (150-450) k/uL Neutrophils # (1.3-7.7) k/uL Sodium (137-145) mmol/L Chloride (98-107) mmol/L Carbon Dioxide (22-30) mmol/L Glucose (74-99) mg/dL POC Glucose (mg/dL) 108 H 125 H 124 H (75-99) mg/dL Alkaline Phosphatase (38-126) U/L Total Protein (6.3-8.2) g/dL 08/26/21 08/27/21 08/27/21 Range/Units 23:21 00:04 01:58 WBC (3.8-10.6) k/uL RBC (4.30-5.90) m/uL Hgb (13.0-17.5) gm/dL Hct (39.0-53.0) % Plt Count (150-450) k/uL Neutrophils # (1.3-7.7) k/uL Sodium (137-145) mmol/L Chloride (98-107) mmol/L Carbon Dioxide (22-30) mmol/L Glucose (74-99) mg/dL POC Glucose (mg/dL) 140 H 145 H 136 H (75-99) mg/dL Alkaline Phosphatase (38-126) U/L Total Protein (6.3-8.2) g/dL 08/27/21 08/27/21 08/27/21 Range/Units 03:10 04:20 05:19 WBC (3.8-10.6) k/uL RBC (4.30-5.90) m/uL Hgb (13.0-17.5) gm/dL Hct (39.0-53.0) % Plt Count (150-450) k/uL Neutrophils # (1.3-7.7) k/uL Sodium (137-145) mmol/L Chloride (98-107) mmol/L Carbon Dioxide (22-30) mmol/L Glucose (74-99) mg/dL POC Glucose (mg/dL) 103 H 160 H 165 H (75-99) mg/dL Alkaline Phosphatase (38-126) U/L Total Protein (6.3-8.2) g/dL 08/27/21 08/27/21 08/27/21 Range/Units 06:00 06:00 06:17 WBC 18.6 H (3.8-10.6) k/uL RBC 3.77 L (4.30-5.90) m/uL Hgb 12.3 L (13.0-17.5) gm/dL Hct 36.5 L (39.0-53.0) % Plt Count 114 L (150-450) k/uL Neutrophils # 16.0 H (1.3-7.7) k/uL Sodium 136 L (137-145) mmol/L Chloride 108 H (98-107) mmol/L Carbon Dioxide 21 L (22-30) mmol/L Glucose 118 H (74-99) mg/dL POC Glucose (mg/dL) 118 H (75-99) mg/dL Alkaline Phosphatase 33 L (38-126) U/L Total Protein 5.9 L (6.3-8.2) g/dL - Imaging and Cardiology Chest x-ray: report reviewed, image reviewed Assessment and Plan Assessment: 1. 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 Preserved left ventricular function 3. History of tobacco dependence with recent cessation 4. Mild COPD with preoperative FEV1 65% of predicted 5. Remote history of pneumonia 6. Peripheral arterial disease with history of abdominal aortic aneurysm 7. Hiatal hernia 8. Hyperlipidemia, treated, cholesterol 160, LDL 81 9. History of basal cell skin cancer approximately 3-4 years ago with removal 10. Vaccinated and boosted against Covid 11. Postoperative acute blood loss anemia and thrombocytopenia, expected 12. Paroxysmal atrial fibrillation Plan: 1. Continue Plavix, statin, low-dose beta jose with parameters. Will increase beta jose therapy as tolerated. Will add ASA back in 2. Continue amiodarone, will transition to oral 3. Wean O2 as tolerated. Encourage incentive spirometry 10 times every hour while awake. Bronchodilators per pulmonology 4. Increase activity as tolerated. PT/OT/cardiac rehab consulted 5. Will monitor daily labs and x-rays. Electrolyte replacement per protocol. No Lasix 6. GI/DVT prophylaxis. Will increase Protonix to twice daily 7. Pain control with current medication regimen. Toradol discontinued 8. Insulin management per primary care service. Patient is not diabetic, preoperative hemoglobin A1c 5.8%, however he does need tight blood sugar control to promote sternal union and to prevent infection 9. Will discontinue right pleural chest tube 10. Discontinue Quinones catheter, may bladder scan and straight cath for >300 mL residual 11. Strict accurate intake and output. Daily weights 12. More recommendations to follow based on patient's progress Time with Patient: Greater than 30
--- NOTE | 2021-08-27 10:23 | P.PN ---
Subjective Progress Note Date: 08/27/21 Principal diagnosis: Symptomatic mitral valve regurgitation 74-year-old white male patient with past medical history of hypertension, former smoker, COPD, who had symptoms of exertional dyspnea. His workup included cardiac catheterization, 2-D echo and transesophageal echocardiogram. He has preserved left ventricular function, mild left atrial dilatation, he was found to have severe prolapse of P2 was severe mitral valve regurgitation. His carotid ultrasound showed no significant stenosis. Cardiac cath on the 07/13/2019 showed normal coronary arteries, and normal left ventricular size and systolic function with severe mitral regurgitation. She also had low-dose lung CT which showed stable 3 mm subpleural nodule in the right middle lobe, and stable 3-4 mm right upper lobe nodule, moderately severe COPD. Patient actually did not have surgery until today on 08/25/2021 he came in for mitral valve repair, exclusion of the left atrial appendage and intraoperative t ransesophageal echocardiogram. We are seeing the patient is postoperative period, he is intubated and sedated, he is on small dose to prevent a 25 mics per kilo per minute, 0.50 ML per hour. No vasoactive drips. Vent settings are assist-control with a rate of 16, tidal volume is 400, FiO2 100% and PEEP of 5. Postoperative blood gases pending. Hemodynamically he is stable, blood pressures 102/56, PA pressures 22 over 1, CVP 3, cardiac output is 4.0, cardiac index is 2.1. 2 mediastinal chest tubes connected together with 140 of sanguinous output in the Pleur-evac, and 50 mL of sanguinous output in the right pleural chest tube. In sinus mechanism. On 08/26/2021 patient seen in follow-up in intensive care unit. He was successfully weaned and extubated on postoperative day #0, at 1858, 2 minutes under his 6 hour nicolas from the OR exit time. He sitting up in a chair today, awake and alert, is having some mild to moderate discomfort in his back, not so much incisional discomfort, hemodynamically stable, he is currently on normal saline at 50 ML per hour, insulin drip is at 2.5 units per hour, no vasoactive drips, she is in sinus mechanism, he is a paced at 80 BPM, blood pressure is 128/53, PA pressures 23/11, CVP is 6, cardiac output is 3.4, cardiac index is 1.7. Chest x-ray showing a trace 9 mm right apical pneumothorax versus 7 mm previously, trace left apical pneumothorax measuring 6 mm, and patchy left basilar retrocardiac atelectasis which has increased. Patient is working on incentive spirometer, he is achieving 2000 on it today. on 4 L of oxygen pulse ox is 95%. Breathing fairly comfortable, lung sounds are clear, diminished at the bases. Patient has 2 mediastinal and one right pleural chest tube, there is 450 mL of the mediastinal and 300 mL out of the right pleural over last 24 hours of thin serosanguineous output. Today's labs have been reviewed, white blood cell count is 13.1, hemoglobin is 11.8, sodium is 137, potassium is 3.6, chloride is 108, CO2 is 20, BUN is 18, creatinine 0.70. Patient is tolerating oral intake. His surgical incisions are clean dry and intact. On 08/27/2021 patient seen in follow-up in intensive care unit, disease pos toperative day #2, status post mitral valve repair, left atrial appendage exclusion. Patient went into A. fib with RVR last night at about 1:00 in the morning. Oxygenation had worsened since then as well, currently on 7 L of oxygen pulse ox is 96-97%, does not appear to be in any acute distress, this morning he remains in atrial fibrillation, amiodarone has been started by CT surgery, currently infusing at 0.5 milligrams per minute. Insulin is currently pulse, 0.9 normal saline at a rate of 30 ML per hour, today's chest x-ray reviewed showing tiny right apical pneumothorax and tiny left apical pneumothorax estimated at less than 10% each, right basilar chest tube is still in place, patchy basilar atelectasis. Incentive spirometer effort is slightly worse compared to yesterday, patient is achieving 1500 on it today compared 2000 yesterday. Mediastinal chest tube was discontinued yesterday, right pleural chest tube remains in place, with thin serosanguineous output with approximately 120 mL of output in the last 24 hours. His back pain is fairly well controlled he states as long as he gets the medication. He has ambulated and tolerated activity fairly well. Today's labs have been reviewed, blood cell count is 18.6, hemoglobin is 12.3, sodium is 136, potassium is 4.0, chloride is 108, CO2 is 21, BUN is 18 creatinine 0.76. Surgical incisions clean dry and intact. Objective - Vital Signs Vital signs: Vital Signs Temp 98.1 F 08/27/21 08:00 Pulse 102 H 08/27/21 09:00 Resp 17 08/27/21 09:00 BP 103/81 08/27/21 09:00 Pulse Ox 96 08/27/21 09:00 Intake & Output 08/26/21 08/27/21 08/27/21 18:59 06:59 18:59 Intake Total 2227.287 694.237 385.365 Output Total 662 460 170 Balance 1565.287 234.237 215.365 Weight 76.8 kg 79.1 kg Intake: IV 1894.67 672 278 0.9 NaCl- 600 600 110 Albumin 750 Amiodarone 450 mg In 16.67 Dextrose 5% in Water 250 ml @ 0.5 MG/MIN 16.667 mls/hr IV .Q15H PRN Rx#: [id number] CO/CI Injectate 50 Calcium Gluconate 2 gm In 100 Sodium Chloride 0.9% 100 ml @ 100 mls/hr IVPB ONCE ONE Rx#:[id number] Dextrose 5% in Water 100 150 ml @ 618 mls/hr IV .Q10M PRN with Amiodarone 150 mg Rx#:[id number] Potassium Chloride 10 meq 200 In Water For Injection 1 100ml.bag @ 100 mls/hr IVPB Q1H [facility] Rx#: [id number] Pressure Bag 78 72 18 ceFAZolin 2 gm In Sodium 100 Chloride 0.9% 50 ml @ 100 mls/hr IVPB Q8HR [facility] Rx# :[id number] Intake, IV Titration 22.617 22.237 7.365 Amount Insulin Regular 100 unit 22.617 22.237 7.365 In Sodium Chloride 0.9% 100 ml @ Per Protocol IV .Q0M [facility] Rx#:[id number] Oral 310 100 Output: Chest Tube Drainage 150 110 Mediastinal 30 Rt Pleural 120 110 Urine 512 460 60 Other: Voiding Method Indwelling Catheter Indwelling Catheter ABP, PAP, CO, CI - Last Documented Arterial Blood Pressure 122/61 Pulmonary Artery Pressure 23/11 Cardiac Output 5.4 Cardiac Index 2.7 - Exam GENERAL EXAM: Alert, very pleasant, 76-year-old male, oriented 3, sitting up in the recliner, he is currently on 5 L of oxygen the pulse ox of 96% comfortable in no apparent distress. HEAD: Normocephalic/atraumatic. EYES: Normal reaction of pupils, equal size. Conjunctiva pink, sclera white. NOSE: Clear with pink turbinates. THROAT: No erythema or exudates. NECK: No masses, no JVD, no thyroid enlargement, no adenopathy. CHEST: No chest wall deformity. Symmetrical expansion. Midsternal incision is clean dry and intact, right pleural chest tube with small amount of sanguinous output in the Pleur-evac's, AV wires in place LUNGS: Equal air entry with no crackles, wheeze, rhonchi or dullness. CVS: Regular rate and rhythm, normal S1 and S2, no gallops, no murmurs, no rubs ABDOMEN: Soft, nontender. No hepatosplenomegaly, normal bowel sounds, no guarding or rigidity. EXTREMITIES: No clubbing, no edema, no cyanosis, 2+ pulses and upper and lower extremities. MUSCULOSKELETAL: Muscle strength and tone normal. SPINE: No scoliosis or deformity SKIN: No rashes CENTRAL NERVOUS SYSTEM: Awake and alert, oriented 3 No focal deficits, tone is normal in all 4 extremities. - Labs CBC & Chem 7: 08/27/21 06:00 08/27/21 06:00 Labs: Abnormal Lab Results - Last 24 Hours (Table) 08/26/21 08/26/21 08/26/21 Range/Units 11:26 12:52 14:24 WBC (3.8-10.6) k/uL RBC (4.30-5.90) m/uL Hgb (13.0-17.5) gm/dL Hct (39.0-53.0) % Plt Count (150-450) k/uL Neutrophils # (1.3-7.7) k/uL Sodium (137-145) mmol/L Chloride (98-107) mmol/L Carbon Dioxide (22-30) mmol/L Glucose (74-99) mg/dL POC Glucose (mg/dL) 106 H 113 H 125 H (75-99) mg/dL Alkaline Phosphatase (38-126) U/L Total Protein (6.3-8.2) g/dL 08/26/21 08/26/21 08/26/21 Range/Units 15:28 16:02 16:56 WBC (3.8-10.6) k/uL RBC (4.30-5.90) m/uL Hgb (13.0-17.5) gm/dL Hct (39.0-53.0) % Plt Count (150-450) k/uL Neutrophils # (1.3-7.7) k/uL Sodium (137-145) mmol/L Chloride (98-107) mmol/L Carbon Dioxide (22-30) mmol/L Glucose (74-99) mg/dL POC Glucose (mg/dL) 114 H 107 H 146 H (75-99) mg/dL Alkaline Phosphatase (38-126) U/L Total Protein (6.3-8.2) g/dL 08/26/21 08/26/21 08/26/21 Range/Units 17:56 19:07 20:09 WBC (3.8-10.6) k/uL RBC (4.30-5.90) m/uL Hgb (13.0-17.5) gm/dL Hct (39.0-53.0) % Plt Count (150-450) k/uL Neutrophils # (1.3-7.7) k/uL Sodium (137-145) mmol/L Chloride (98-107) mmol/L Carbon Dioxide (22-30) mmol/L Glucose (74-99) mg/dL POC Glucose (mg/dL) 153 H 111 H 108 H (75-99) mg/dL Alkaline Phosphatase (38-126) U/L Total Protein (6.3-8.2) g/dL 08/26/21 08/26/21 08/26/21 Range/Units 21:30 22:25 23:21 WBC (3.8-10.6) k/uL RBC (4.30-5.90) m/uL Hgb (13.0-17.5) gm/dL Hct (39.0-53.0) % Plt Count (150-450) k/uL Neutrophils # (1.3-7.7) k/uL Sodium (137-145) mmol/L Chloride (98-107) mmol/L Carbon Dioxide (22-30) mmol/L Glucose (74-99) mg/dL POC Glucose (mg/dL) 125 H 124 H 140 H (75-99) mg/dL Alkaline Phosphatase (38-126) U/L Total Protein (6.3-8.2) g/dL 08/27/21 08/27/21 08/27/21 Range/Units 00:04 01:58 03:10 WBC (3.8-10.6) k/uL RBC (4.30-5.90) m/uL Hgb (13.0-17.5) gm/dL Hct (39.0-53.0) % Plt Count (150-450) k/uL Neutrophils # (1.3-7.7) k/uL Sodium (137-145) mmol/L Chloride (98-107) mmol/L Carbon Dioxide (22-30) mmol/L Glucose (74-99) mg/dL POC Glucose (mg/dL) 145 H 136 H 103 H (75-99) mg/dL Alkaline Phosphatase (38-126) U/L Total Protein (6.3-8.2) g/dL 08/27/21 08/27/21 08/27/21 Range/Units 04:20 05:19 06:00 WBC 18.6 H (3.8-10.6) k/uL RBC 3.77 L (4.30-5.90) m/uL Hgb 12.3 L (13.0-17.5) gm/dL Hct 36.5 L (39.0-53.0) % Plt Count 114 L (150-450) k/uL Neutrophils # 16.0 H (1.3-7.7) k/uL Sodium (137-145) mmol/L Chloride (98-107) mmol/L Carbon Dioxide (22-30) mmol/L Glucose (74-99) mg/dL POC Glucose (mg/dL) 160 H 165 H (75-99) mg/dL Alkaline Phosphatase (38-126) U/L Total Protein (6.3-8.2) g/dL 08/27/21 08/27/21 Range/Units 06:00 06:17 WBC (3.8-10.6) k/uL RBC (4.30-5.90) m/uL Hgb (13.0-17.5) gm/dL Hct (39.0-53.0) % Plt Count (150-450) k/uL Neutrophils # (1.3-7.7) k/uL Sodium 136 L (137-145) mmol/L Chloride 108 H (98-107) mmol/L Carbon Dioxide 21 L (22-30) mmol/L Glucose 118 H (74-99) mg/dL POC Glucose (mg/dL) 118 H (75-99) mg/dL Alkaline Phosphatase 33 L (38-126) U/L Total Protein 5.9 L (6.3-8.2) g/dL Assessment and Plan Plan: Assessment: #1. Symptomatic mitral valve regurgitation, status post mitral valve repair, exclusion of left atrial appendage, and intraoperative BECKY on 08/25/2021, postoperative day #2 #2. Routine postoperative ventilator management, patient was successfully weaned and extubated on postoperative day #0, at the 1858, 2 minutes before 6 hour nicolas from his OR exit time #3. Hyperlipidemia #4. Former smoker #5. History of cataracts #6. History of basal cell carcinoma with surgical removal #7. Moderately severe COPD with preoperative PFT of 67% predicted Plan: Patient is doing well on postoperative day #2 Today's chest x-ray has been reviewed and labs reviewed Went into A. fib with RVR last Has been started on amiodarone Antiarrhythmics, and anticoagulation per CT surgery recommendations Continue encouraging deep breathing and coughing GI and DVT prophylaxis Encourage ambulation We'll continue to follow I have personally seen and examined the patient, performed the documentation and the assessment and plan as written. Number of minutes spent on the visit: [10] Time with Patient: Less than 30
[2021-08-27 11:13] LABS: Glucose,Whole Blood 186 mg/dL (75-99)
[2021-08-27] MEDS: AMIODARONE 200 MG TAB PO SCH ×2 (11:17→21:25)
[2021-08-27] MEDS: INSULIN ASPART (NovoLOG) 100 UNIT/ML VIAL SQ SCH ×3 (11:17→21:25)
[2021-08-27] MEDS: ASPIRIN 325 MG TAB PO SCH (11:17)
--- NOTE | 2021-08-27 11:58 | P.PN ---
Subjective Patient with history of mitral regurgitation status post mitral valve repair postop day #2. Patient complains of discomfort involving his back and lower abdomen. They just removed his Quinones. He developed an episode of atrial fibrillation. Received IV amiodarone and is currently on oral amiodarone. On exam: Comfortable at rest heart rate is 100 bpm irregular blood pressure is 98/86 chest exam reveals diminished air entry at the bases heart exam reveals first and second heart sounds regular rhythm no murmur examination extremities did not reveal any edema per for pulses are felt Labs show a hemoglobin of 12.3 potassium is 4 creatinine is 0.7 platelet count is 114 Assessment and plan: Mitral regurgitation status post mitral valve repair Postop atrial fibrillation Continue current medications increase activity incentive spirometry Objective - Vital Signs Vital signs: Vital Signs Temp 98.1 F 08/27/21 08:00 Pulse 90 08/27/21 11:46 Resp 18 08/27/21 11:00 BP 98/86 08/27/21 11:00 Pulse Ox 94 L 08/27/21 11:00 Intake & Output 08/26/21 08/27/21 08/27/21 18:59 06:59 18:59 Intake Total 2227.287 694.237 647.365 Output Total 662 460 190 Balance 1565.287 234.237 457.365 Weight 76.8 kg 79.1 kg Intake: IV 1894.67 672 540 0.9 NaCl- 600 600 210 Albumin 750 Amiodarone 450 mg In 16.67 Dextrose 5% in Water 250 ml @ 0.5 MG/MIN 16.667 mls/hr IV .Q15H PRN Rx#: [id number] CO/CI Injectate 50 Calcium Gluconate 2 gm In 100 Sodium Chloride 0.9% 100 ml @ 100 mls/hr IVPB ONCE ONE Rx#:[id number] Dextrose 5% in Water 100 300 ml @ 618 mls/hr IV .Q10M PRN with Amiodarone 150 mg Rx#:[id number] Potassium Chloride 10 meq 200 In Water For Injection 1 100ml.bag @ 100 mls/hr IVPB Q1H [facility] Rx#: [id number] Pressure Bag 78 72 30 ceFAZolin 2 gm In Sodium 100 Chloride 0.9% 50 ml @ 100 mls/hr IVPB Q8HR [facility] Rx# :[id number] Intake, IV Titration 22.617 22.237 7.365 Amount Insulin Regular 100 unit 22.617 22.237 7.365 In Sodium Chloride 0.9% 100 ml @ Per Protocol IV .Q0M [facility] Rx#:[id number] Oral 310 100 Output: Chest Tube Drainage 150 130 Mediastinal 30 Rt Pleural 120 130 Urine 512 460 60 Other: Voiding Method Indwelling Catheter Indwelling Catheter ABP, PAP, CO, CI - Last Documented Arterial Blood Pressure 113/63 Pulmonary Artery Pressure 23/11 Cardiac Output 5.4 Cardiac Index 2.7 - Labs CBC & Chem 7: 08/27/21 06:00 08/27/21 06:00 Labs: Abnormal Lab Results - Last 24 Hours (Table) 08/26/21 08/26/21 08/26/21 Range/Units 12:52 14:24 15:28 WBC (3.8-10.6) k/uL RBC (4.30-5.90) m/uL Hgb (13.0-17.5) gm/dL Hct (39.0-53.0) % Plt Count (150-450) k/uL Neutrophils # (1.3-7.7) k/uL Sodium (137-145) mmol/L Chloride (98-107) mmol/L Carbon Dioxide (22-30) mmol/L Glucose (74-99) mg/dL POC Glucose (mg/dL) 113 H 125 H 114 H (75-99) mg/dL Alkaline Phosphatase (38-126) U/L Total Protein (6.3-8.2) g/dL 08/26/21 08/26/21 08/26/21 Range/Units 16:02 16:56 17:56 WBC (3.8-10.6) k/uL RBC (4.30-5.90) m/uL Hgb (13.0-17.5) gm/dL Hct (39.0-53.0) % Plt Count (150-450) k/uL Neutrophils # (1.3-7.7) k/uL Sodium (137-145) mmol/L Chloride (98-107) mmol/L Carbon Dioxide (22-30) mmol/L Glucose (74-99) mg/dL POC Glucose (mg/dL) 107 H 146 H 153 H (75-99) mg/dL Alkaline Phosphatase (38-126) U/L Total Protein (6.3-8.2) g/dL 08/26/21 08/26/21 08/26/21 Range/Units 19:07 20:09 21:30 WBC (3.8-10.6) k/uL RBC (4.30-5.90) m/uL Hgb (13.0-17.5) gm/dL Hct (39.0-53.0) % Plt Count (150-450) k/uL Neutrophils # (1.3-7.7) k/uL Sodium (137-145) mmol/L Chloride (98-107) mmol/L Carbon Dioxide (22-30) mmol/L Glucose (74-99) mg/dL POC Glucose (mg/dL) 111 H 108 H 125 H (75-99) mg/dL Alkaline Phosphatase (38-126) U/L Total Protein (6.3-8.2) g/dL 08/26/21 08/26/21 08/27/21 Range/Units 22:25 23:21 00:04 WBC (3.8-10.6) k/uL RBC (4.30-5.90) m/uL Hgb (13.0-17.5) gm/dL Hct (39.0-53.0) % Plt Count (150-450) k/uL Neutrophils # (1.3-7.7) k/uL Sodium (137-145) mmol/L Chloride (98-107) mmol/L Carbon Dioxide (22-30) mmol/L Glucose (74-99) mg/dL POC Glucose (mg/dL) 124 H 140 H 145 H (75-99) mg/dL Alkaline Phosphatase (38-126) U/L Total Protein (6.3-8.2) g/dL 08/27/21 08/27/21 08/27/21 Range/Units 01:58 03:10 04:20 WBC (3.8-10.6) k/uL RBC (4.30-5.90) m/uL Hgb (13.0-17.5) gm/dL Hct (39.0-53.0) % Plt Count (150-450) k/uL Neutrophils # (1.3-7.7) k/uL Sodium (137-145) mmol/L Chloride (98-107) mmol/L Carbon Dioxide (22-30) mmol/L Glucose (74-99) mg/dL POC Glucose (mg/dL) 136 H 103 H 160 H (75-99) mg/dL Alkaline Phosphatase (38-126) U/L Total Protein (6.3-8.2) g/dL 08/27/21 08/27/21 08/27/21 Range/Units 05:19 06:00 06:00 WBC 18.6 H (3.8-10.6) k/uL RBC 3.77 L (4.30-5.90) m/uL Hgb 12.3 L (13.0-17.5) gm/dL Hct 36.5 L (39.0-53.0) % Plt Count 114 L (150-450) k/uL Neutrophils # 16.0 H (1.3-7.7) k/uL Sodium 136 L (137-145) mmol/L Chloride 108 H (98-107) mmol/L Carbon Dioxide 21 L (22-30) mmol/L Glucose 118 H (74-99) mg/dL POC Glucose (mg/dL) 165 H (75-99) mg/dL Alkaline Phosphatase 33 L (38-126) U/L Total Protein 5.9 L (6.3-8.2) g/dL 08/27/21 08/27/21 Range/Units 06:17 11:12 WBC (3.8-10.6) k/uL RBC (4.30-5.90) m/uL Hgb (13.0-17.5) gm/dL Hct (39.0-53.0) % Plt Count (150-450) k/uL Neutrophils # (1.3-7.7) k/uL Sodium (137-145) mmol/L Chloride (98-107) mmol/L Carbon Dioxide (22-30) mmol/L Glucose (74-99) mg/dL POC Glucose (mg/dL) 118 H 186 H (75-99) mg/dL Alkaline Phosphatase (38-126) U/L Total Protein (6.3-8.2) g/dL
--- NOTE | 2021-08-27 15:42 | P.PN ---
Subjective Patient was examined at bedside today not complaining of any new symptomatology. He probably went into atrial fibrillation last night. Denies any worsening symptomatology continues to be on 6-7 L of nasal cannula saturating above 90%. Denies any active chest pain, phlegm production and is overall in good spirits. He feels slightly weak compared to yesterday. No signs of fever. Objective - Vital Signs Vital signs: Vital Signs Temp 98.1 F 08/27/21 08:00 Pulse 90 08/27/21 11:46 Resp 18 08/27/21 11:00 BP 98/86 08/27/21 11:00 Pulse Ox 94 L 08/27/21 11:00 Intake & Output 08/26/21 08/27/21 08/27/21 18:59 06:59 18:59 Intake Total 2227.287 694.237 647.365 Output Total 662 460 190 Balance 1565.287 234.237 457.365 Weight 76.8 kg 79.1 kg Intake: IV 1894.67 672 540 0.9 NaCl- 600 600 210 Albumin 750 Amiodarone 450 mg In 16.67 Dextrose 5% in Water 250 ml @ 0.5 MG/MIN 16.667 mls/hr IV .Q15H PRN Rx#: [id number] CO/CI Injectate 50 Calcium Gluconate 2 gm In 100 Sodium Chloride 0.9% 100 ml @ 100 mls/hr IVPB ONCE ONE Rx#:[id number] Dextrose 5% in Water 100 300 ml @ 618 mls/hr IV .Q10M PRN with Amiodarone 150 mg Rx#:[id number] Potassium Chloride 10 meq 200 In Water For Injection 1 100ml.bag @ 100 mls/hr IVPB Q1H [facility] Rx#: [id number] Pressure Bag 78 72 30 ceFAZolin 2 gm In Sodium 100 Chloride 0.9% 50 ml @ 100 mls/hr IVPB Q8HR [facility] Rx# :[id number] Intake, IV Titration 22.617 22.237 7.365 Amount Insulin Regular 100 unit 22.617 22.237 7.365 In Sodium Chloride 0.9% 100 ml @ Per Protocol IV .Q0M [facility] Rx#:[id number] Oral 310 100 Output: Chest Tube Drainage 150 130 Mediastinal 30 Rt Pleural 120 130 Urine 512 460 60 Other: Voiding Method Indwelling Catheter Indwelling Catheter ABP, PAP, CO, CI - Last Documented Arterial Blood Pressure 113/63 Pulmonary Artery Pressure 23/11 Cardiac Output 5.4 Cardiac Index 2.7 - Exam general patient is awake alert oriented 3 sitting up in chair slightly uncomfortable due to wiring Cardio normal S1/S2 heard, irregularly irregular, heart hugger in place respiratory: no wheezing or rhonchi apperciated, slight decrease breathe sounds due to pain most likely. Abdo - soft non-tender Psychiatric: normal mood, AAOx3 Neuro - CN 2-12 grossly intact. - Labs CBC & Chem 7: 08/27/21 06:00 08/27/21 06:00 Labs: Abnormal Lab Results - Last 24 Hours (Table) 08/26/21 08/26/21 08/26/21 Range/Units 15:28 16:02 16:56 WBC (3.8-10.6) k/uL RBC (4.30-5.90) m/uL Hgb (13.0-17.5) gm/dL Hct (39.0-53.0) % Plt Count (150-450) k/uL Neutrophils # (1.3-7.7) k/uL Sodium (137-145) mmol/L Chloride (98-107) mmol/L Carbon Dioxide (22-30) mmol/L Glucose (74-99) mg/dL POC Glucose (mg/dL) 114 H 107 H 146 H (75-99) mg/dL Alkaline Phosphatase (38-126) U/L Total Protein (6.3-8.2) g/dL 08/26/21 08/26/21 08/26/21 Range/Units 17:56 19:07 20:09 WBC (3.8-10.6) k/uL RBC (4.30-5.90) m/uL Hgb (13.0-17.5) gm/dL Hct (39.0-53.0) % Plt Count (150-450) k/uL Neutrophils # (1.3-7.7) k/uL Sodium (137-145) mmol/L Chloride (98-107) mmol/L Carbon Dioxide (22-30) mmol/L Glucose (74-99) mg/dL POC Glucose (mg/dL) 153 H 111 H 108 H (75-99) mg/dL Alkaline Phosphatase (38-126) U/L Total Protein (6.3-8.2) g/dL 08/26/21 08/26/21 08/26/21 Range/Units 21:30 22:25 23:21 WBC (3.8-10.6) k/uL RBC (4.30-5.90) m/uL Hgb (13.0-17.5) gm/dL Hct (39.0-53.0) % Plt Count (150-450) k/uL Neutrophils # (1.3-7.7) k/uL Sodium (137-145) mmol/L Chloride (98-107) mmol/L Carbon Dioxide (22-30) mmol/L Glucose (74-99) mg/dL POC Glucose (mg/dL) 125 H 124 H 140 H (75-99) mg/dL Alkaline Phosphatase (38-126) U/L Total Protein (6.3-8.2) g/dL 08/27/21 08/27/21 08/27/21 Range/Units 00:04 01:58 03:10 WBC (3.8-10.6) k/uL RBC (4.30-5.90) m/uL Hgb (13.0-17.5) gm/dL Hct (39.0-53.0) % Plt Count (150-450) k/uL Neutrophils # (1.3-7.7) k/uL Sodium (137-145) mmol/L Chloride (98-107) mmol/L Carbon Dioxide (22-30) mmol/L Glucose (74-99) mg/dL POC Glucose (mg/dL) 145 H 136 H 103 H (75-99) mg/dL Alkaline Phosphatase (38-126) U/L Total Protein (6.3-8.2) g/dL 08/27/21 08/27/21 08/27/21 Range/Units 04:20 05:19 06:00 WBC 18.6 H (3.8-10.6) k/uL RBC 3.77 L (4.30-5.90) m/uL Hgb 12.3 L (13.0-17.5) gm/dL Hct 36.5 L (39.0-53.0) % Plt Count 114 L (150-450) k/uL Neutrophils # 16.0 H (1.3-7.7) k/uL Sodium (137-145) mmol/L Chloride (98-107) mmol/L Carbon Dioxide (22-30) mmol/L Glucose (74-99) mg/dL POC Glucose (mg/dL) 160 H 165 H (75-99) mg/dL Alkaline Phosphatase (38-126) U/L Total Protein (6.3-8.2) g/dL 08/27/21 08/27/21 08/27/21 Range/Units 06:00 06:17 11:12 WBC (3.8-10.6) k/uL RBC (4.30-5.90) m/uL Hgb (13.0-17.5) gm/dL Hct (39.0-53.0) % Plt Count (150-450) k/uL Neutrophils # (1.3-7.7) k/uL Sodium 136 L (137-145) mmol/L Chloride 108 H (98-107) mmol/L Carbon Dioxide 21 L (22-30) mmol/L Glucose 118 H (74-99) mg/dL POC Glucose (mg/dL) 118 H 186 H (75-99) mg/dL Alkaline Phosphatase 33 L (38-126) U/L Total Protein 5.9 L (6.3-8.2) g/dL Assessment and Plan Assessment: assessment: #1severe mitral valve regurgitation, severe prolapse status post Repair of complex mitral valve #2 congestive heart failure with preserved ejection fraction #3 COPD not in acute exacerbation #4 hyperlipidemia #5 essential hypertension #6 thrombocytopenia most likely reactive #7 history of basal cell cancer #8 history of tobacco dependence #9 trace 9 mm right apical pneumothorax/left artifact versus apical pneumothorax measuring 6 mm #10 atrial fibrillation rate controlled post op plan: -admit to ICU level of care -Aspiration/fall precaution -Continue management as per ICU protocol -increase in wbc count from 13 to 18, will continue to monitor. -encourage incentive spirometry, daily x-rays -Replete electrolytes when necessary -maintain inpatient glucose levels less than 180 -Currently has Quinones catheter in place for strict input/output recommending discontinue soon as possible to prevent nosocomial infection -Continue with right pleural chest tube as per management per cardiology/pulmonary -started on amio for atrial fibrillation -dvt px: heparin TID -PT/OT when allowable
[2021-08-27 17:03] LABS: Glucose,Whole Blood 144 mg/dL (75-99)
[2021-08-27 21:15] LABS: Glucose,Whole Blood 145 mg/dL (75-99)
[2021-08-27] MEDS: TAMSULOSIN 0.4 MG CAP.ER.24H PO SCH (21:25)
[2021-08-27] MEDS: LATANOPROST 0.005% OPHTH DROPS 2.5 ML BTL BOTH EYES SCH (21:26)
[2021-08-27] MEDS: SENNOSIDES-DOCUSATE SODIUM 1 EACH TAB PO SCH (21:26)
[2021-08-28] MEDS: SODIUM CHLORIDE 0.9% 1,000 ML IV SCH (02:51)
[2021-08-28 05:25] LABS: Basophils % (A) 0 %; Eosinophils # (A) 0.1 k/uL (0-0.7); Eosinophils % (A) 1 %; HGB 10.6 gm/dL (13.0-17.5); Lymphocytes # (A) 0.7 k/uL (1.0-4.8); Lymphocytes % (A) 7 %; MCH 32.6 pg (25.0-35.0); MCHC 34.3 g/dL (31.0-37.0); MCV 95.1 fL (80.0-100.0); Mean Platelet Volume 8.9; Monocytes # (A) 0.5 k/uL (0-1.0); Monocytes % (A) 6 %; Neutrophils # (A) 8.3 k/uL (1.3-7.7); Neutrophils % (A) 85 %; RBC 3.26 m/uL (4.30-5.90); RDW 13.5 % (11.5-15.5); WBC 9.8 k/uL (3.8-10.6)
[2021-08-28 05:45] LABS: ALT 19 U/L (4-49); AST 39 U/L (17-59); African American GFR (CKD) >90 (>60 ml/min/1.73 sqM); Albumin 3.1 g/dL (3.5-5.0); Alkaline Phosphatase 39 U/L (38-126); Anion Gap 3 mmol/L; Blood Urea Nitrogen 18 mg/dL (9-20); Carbon Dioxide 23 mmol/L (22-30); Chloride 108 mmol/L (98-107); Glucose 129 mg/dL (74-99); Non-African American GFR(CKD) >90 (>60 ml/min/1.73 sqM); Potassium 3.9 mmol/L (3.5-5.1); Sodium 134 mmol/L (137-145); Total Bilirubin 1.2 mg/dL (0.2-1.3); Total Protein 5.4 g/dL (6.3-8.2)
[2021-08-28 05:46] LABS: Platelet Count 95 k/uL (150-450)
[2021-08-28 06:49] LABS: Glucose,Whole Blood 131 mg/dL (75-99)
[2021-08-28] MEDS: PANTOPRAZOLE 40 MG TABLET PO SCH (06:55)
[2021-08-28] MEDS: INSULIN ASPART (NovoLOG) 100 UNIT/ML VIAL SQ SCH ×4 (06:55→20:02)
--- NOTE | 2021-08-28 07:13 | XR ---
EXAMINATION TYPE: XR chest 2V DATE OF EXAM: 08/28/2021 COMPARISON: 08/27/2021 TECHNIQUE: PA and lateral views submitted. HISTORY: Post cardiac surgery FINDINGS: Postsurgical changes with bilateral consolidation and small effusion. Interstitial pattern seen. Ther e is a tiny right apical pneumothorax measuring less than 5%. IMPRESSION: 1. Bilateral infiltrate, pleural effusion correlate for mild CHF. 2. Tiny right apical pneumothorax measuring less than 5%. Left apical pneumothorax not as well-seen o n today's exam.
[2021-08-28] MEDS: AMIODARONE 200 MG TAB PO SCH ×2 (07:42→20:01)
[2021-08-28] MEDS: HEPARIN SODIUM,PORCINE/PF 5,000 UNIT/0.5 ML SYRINGE SQ SCH (07:42)
[2021-08-28] MEDS: ATORVASTATIN 40 MG TAB PO SCH (07:43)
[2021-08-28] MEDS: ACETAMINOPHEN TAB 325 MG TAB PO PRN (07:43)
[2021-08-28] MEDS: ASPIRIN 325 MG TAB PO SCH (07:43)
[2021-08-28] MEDS: METOPROLOL TARTRATE 25 MG TAB PO SCH ×2 (07:43→20:01)
[2021-08-28] MEDS: CLOPIDOGREL 75 MG TAB PO SCH (07:43)
[2021-08-28] MEDS: IPRATROPIUM-ALBUTEROL 3 ML NEB INHALATION SCH ×4 (07:48→20:01)
--- NOTE | 2021-08-28 07:59 | P.PN ---
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 Previous history of tobacco dependence with mild COPD, remote history of pneumonia, peripheral arterial disease with history of abdominal aortic aneurysm, hiatal hernia, hyperlipidemia, basal cell skin cancer approximately 3-4 years ago. Vaccinated and boosted against Covid POD #3 complex mitral valve repair consisting of construction of 6 Primo cords to P2 segment along with posterior annuloplasty using an incomplete AnnuloFlex 36 mm band, exclusion of the left atrial appendage using a 35 mm AtriClip, intraoperative transesophageal echocardiogram and epi-aortic scanning Postoperative acute blood loss anemia and thrombocytopenia, expected given hemodilution and cardiopulmonary bypass pump Paroxysmal atrial fibrillation, known common occurrence after open heart surgery The patient was seen and examined this morning with sitting up in a recliner in no acute distress. States post surgical pain is mostly controlled with current medication regimen, denies shortness of breath. States he did get some sleep last night. Currently in sinus rhythm and hemodynamically stable. Right internal jugular Cordis, right radial arterial line remain present. Patient ambulated in the hallway yesterday with physical therapy. No other new concerns. Objective - Vital Signs Vital signs: Vital Signs Temp 98.8 F 08/27/21 20:00 Pulse 82 08/28/21 07:00 Resp 15 08/28/21 07:00 BP 122/77 08/28/21 07:00 Pulse Ox 93 L 08/28/21 07:00 Intake & Output 08/27/21 08/28/21 08/28/21 18:59 06:59 18:59 Intake Total 1319.365 462 Output Total 290 150 Balance 1029.365 312 Weight 79.2 kg Intake: IV 792 462 0.9 NaCl- 420 390 Dextrose 5% in Water 100 300 ml @ 618 mls/hr IV .Q10M PRN with Amiodarone 150 mg Rx#:[id number] Pressure Bag 72 72 Intake, IV Titration 7.365 Amount Insulin Regular 100 unit 7.365 In Sodium Chloride 0.9% 100 ml @ Per Protocol IV .Q0M [facility] Rx#:[id number] Oral 520 Output: Chest Tube Drainage 130 Rt Pleural 130 Urine 160 150 Other: Voiding Method Indwelling Catheter Urinal # Voids 400 ABP, PAP, CO, CI - Last Documented Arterial Blood Pressure 112/60 Pulmonary Artery Pressure 23/11 Cardiac Output 5.4 Cardiac Index 2.7 - Exam CONSTITUTIONAL: Appears comfortable, cooperative, no acute distress RESPIRATORY: Lungs sounds diminished bilaterally. Respirations even, nonlabored. Currently on 4 L nasal cannula with oxygen saturation 94%. Able to achieve 1500 mL on incentive spirometry. Strong productive cough. CARDIOVASCULAR: S1, S2 present. Regular rate and rhythm, sinus rhythm on telemetry. Sternum stable. Palpable peripheral pulses bilaterally. No edema present. No calf pain or tenderness noted. Heart hugger in place with patient demonstrating appropriate use. Antiembolism stockings, SCDs present. GASTROINTESTINAL: Abdomen soft, nontender, nondistended. Hypoactive bowel sounds present 4 quadrants. Tolerating full liquids. Positive belching, negative flatus GENITOURINARY: Quinones present draining clear, yellow urine. Output overnight 20-40 mL per hour, 972 mL in the last 24 hours INTEGUMENTARY: Skin is warm and dry with evidence of good perfusion. Anterior chest incision well approximated and covered with dry intact dressing NEUROLOGIC: Cranial nerves II through XII intact MUSKULOSKELETAL: Able to move all extremities, strength equal bilaterally, gait normal PSYCHIATRIC: Alert and oriented to person place and time, appropriate affect, intact judgment and insight INVASIVE LINES AND TUBES: A/V epicardial pacemaker wires present, grounded. Right internal jugular Cordis, right radial arterial line present. - Allied health notes Allied health notes reviewed: nursing - Labs CBC & Chem 7: 08/28/21 05:15 08/28/21 05:15 Labs: Abnormal Lab Results - Last 24 Hours (Table) 08/27/21 08/27/21 08/27/21 Range/Units 11:12 17:01 21:13 RBC (4.30-5.90) m/uL Hgb (13.0-17.5) gm/dL Hct (39.0-53.0) % Plt Count (150-450) k/uL Neutrophils # (1.3-7.7) k/uL Lymphocytes # (1.0-4.8) k/uL Sodium (137-145) mmol/L Chloride (98-107) mmol/L Creatinine (0.66-1.25) mg/dL Glucose (74-99) mg/dL POC Glucose (mg/dL) 186 H 144 H 145 H (75-99) mg/dL Calcium (8.4-10.2) mg/dL Total Protein (6.3-8.2) g/dL Albumin (3.5-5.0) g/dL 08/28/21 08/28/21 08/28/21 Range/Units 05:15 05:15 06:47 RBC 3.26 L (4.30-5.90) m/uL Hgb 10.6 L (13.0-17.5) gm/dL Hct 31.0 L (39.0-53.0) % Plt Count 95 L (150-450) k/uL Neutrophils # 8.3 H (1.3-7.7) k/uL Lymphocytes # 0.7 L (1.0-4.8) k/uL Sodium 134 L (137-145) mmol/L Chloride 108 H (98-107) mmol/L Creatinine 0.61 L (0.66-1.25) mg/dL Glucose 129 H (74-99) mg/dL POC Glucose (mg/dL) 131 H (75-99) mg/dL Calcium 8.0 L (8.4-10.2) mg/dL Total Protein 5.4 L (6.3-8.2) g/dL Albumin 3.1 L (3.5-5.0) g/dL - Imaging and Cardiology Chest x-ray: image reviewed Assessment and Plan Assessment: 1. 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 Preserved left ventricular function 3. History of tobacco dependence with recent cessation 4. Mild COPD with preoperative FEV1 65% of predicted 5. Remote history of pneumonia 6. Peripheral arterial disease with history of abdominal aortic aneurysm 7. Hiatal hernia 8. Hyperlipidemia, treated, cholesterol 160, LDL 81 9. History of basal cell skin cancer approximately 3-4 years ago with removal 10. Vaccinated and boosted against Covid 11. Postoperative acute blood loss anemia and thrombocytopenia, expected 12. Paroxysmal atrial fibrillation Plan: 1. Continue aspirin, Plavix, statin, beta jose. Will increase beta jose therapy as tolerated. 2. Continue amiodarone, no anticoagulation at this point 3. Wean O2 as tolerated. Encourage incentive spirometry 10 times every hour while awake. Bronchodilators per pulmonology 4. Increase activity as tolerated. PT/OT/cardiac rehab consulted 5. Will monitor daily labs and x-rays. Electrolyte replacement per protocol. Will give 20 mg IVP lasix 6. GI/DVT prophylaxis. DC subcu heparin, add Arixtra, HIT panel ordered 7. Pain control with current medication regimen. 8. Insulin management per primary care service. Patient is not diabetic, preoperative hemoglobin A1c 5.8%, however he does need tight blood sugar control to promote sternal union and to prevent infection 9. Will discontinue Cordis, arterial line 10. Strict accurate intake and output. Daily weights 11. Will place transfer orders for [address] [place] [id number] cardiac stepdown unit. May transfer when bed available 12. More recommendations to follow based on patient's progress Time with Patient: Greater than 30
[2021-08-28] MEDS ORDERED: FUROSEMIDE 10 MG/ML 2 ML VIAL IV ONE (08:02)
--- NOTE | 2021-08-28 09:08 | P.PN ---
Subjective Progress Note Date: 08/28/21 Principal diagnosis: Symptomatic mitral valve regurgitation 74-year-old white male patient with past medical history of hypertension, former smoker, COPD, who had symptoms of exertional dyspnea. His workup included cardiac catheterization, 2-D echo and transesophageal echocardiogram. He has preserved left ventricular function, mild left atrial dilatation, he was found to have severe prolapse of P2 was severe mitral valve regurgitation. His carotid ultrasound showed no significant stenosis. Cardiac cath on the 07/13/2019 showed normal coronary arteries, and normal left ventricular size and systolic function with severe mitral regurgitation. She also had low-dose lung CT which showed stable 3 mm subpleural nodule in the right middle lobe, and stable 3-4 mm right upper lobe nodule, moderately severe COPD. Patient actually did not have surgery until today on 08/25/2021 he came in for mitral valve repair, exclusion of the left atrial appendage and intraoperative t ransesophageal echocardiogram. We are seeing the patient is postoperative period, he is intubated and sedated, he is on small dose to prevent a 25 mics per kilo per minute, 0.50 ML per hour. No vasoactive drips. Vent settings are assist-control with a rate of 16, tidal volume is 400, FiO2 100% and PEEP of 5. Postoperative blood gases pending. Hemodynamically he is stable, blood pressures 102/56, PA pressures 22 over 1, CVP 3, cardiac output is 4.0, cardiac index is 2.1. 2 mediastinal chest tubes connected together with 140 of sanguinous output in the Pleur-evac, and 50 mL of sanguinous output in the right pleural chest tube. In sinus mechanism. On 08/26/2021 patient seen in follow-up in intensive care unit. He was successfully weaned and extubated on postoperative day #0, at 1858, 2 minutes under his 6 hour nicolas from the OR exit time. He sitting up in a chair today, awake and alert, is having some mild to moderate discomfort in his back, not so much incisional discomfort, hemodynamically stable, he is currently on normal saline at 50 ML per hour, insulin drip is at 2.5 units per hour, no vasoactive drips, she is in sinus mechanism, he is a paced at 80 BPM, blood pressure is 128/53, PA pressures 23/11, CVP is 6, cardiac output is 3.4, cardiac index is 1.7. Chest x-ray showing a trace 9 mm right apical pneumothorax versus 7 mm previously, trace left apical pneumothorax measuring 6 mm, and patchy left basilar retrocardiac atelectasis which has increased. Patient is working on incentive spirometer, he is achieving 2000 on it today. on 4 L of oxygen pulse ox is 95%. Breathing fairly comfortable, lung sounds are clear, diminished at the bases. Patient has 2 mediastinal and one right pleural chest tube, there is 450 mL of the mediastinal and 300 mL out of the right pleural over last 24 hours of thin serosanguineous output. Today's labs have been reviewed, white blood cell count is 13.1, hemoglobin is 11.8, sodium is 137, potassium is 3.6, chloride is 108, CO2 is 20, BUN is 18, creatinine 0.70. Patient is tolerating oral intake. His surgical incisions are clean dry and intact. On 08/27/2021 patient seen in follow-up in intensive care unit, disease pos toperative day #2, status post mitral valve repair, left atrial appendage exclusion. Patient went into A. fib with RVR last night at about 1:00 in the morning. Oxygenation had worsened since then as well, currently on 7 L of oxygen pulse ox is 96-97%, does not appear to be in any acute distress, this morning he remains in atrial fibrillation, amiodarone has been started by CT surgery, currently infusing at 0.5 milligrams per minute. Insulin is currently pulse, 0.9 normal saline at a rate of 30 ML per hour, today's chest x-ray reviewed showing tiny right apical pneumothorax and tiny left apical pneumothorax estimated at less than 10% each, right basilar chest tube is still in place, patchy basilar atelectasis. Incentive spirometer effort is slightly worse compared to yesterday, patient is achieving 1500 on it today compared 2000 yesterday. Mediastinal chest tube was discontinued yesterday, right pleural chest tube remains in place, with thin serosanguineous output with approximately 120 mL of output in the last 24 hours. His back pain is fairly well controlled he states as long as he gets the medication. He has ambulated and tolerated activity fairly well. Today's labs have been reviewed, blood cell count is 18.6, hemoglobin is 12.3, sodium is 136, potassium is 4.0, chloride is 108, CO2 is 21, BUN is 18 creatinine 0.76. Surgical incisions clean dry and intact. On 08/28/2021 patient seen in follow-up in the intensive care unit, today's postoperative day #3, status post mitral valve repair, left atrial appendage exclusion. Patient converted back to sinus rhythm yesterday at 3:30 in the afternoon, hemodynamically has remained stable, he has been transitioned to oral amiodarone, both his chest tubes have been discontinued, his Quinones, and other lines have been discontinued. Currently just has AV wires in place that are grown, intrinsic rhythm is sinus. Not requiring any pacing, breathing comfortably, his back pain is better controlled, he is on 5 L of oxygen pulse ox is 93-95%, hemodynamically has been stable, today's chest x-ray has been reviewed showing bilateral infiltrate, pleural effusion correlates with mild CHF, tiny right apical pneumothorax measuring less than 5 cm, left apical pneumothorax not well seen area incentive spirometer effort is 1.4 L. Patient has tolerated ambulation. His surgical incisions are clean dry and intact, he is tolerating oral intake, no abdominal pain. Objective - Vital Signs Vital signs: Vital Signs Temp 98.8 F 08/27/21 20:00 Pulse 82 08/28/21 07:59 Resp 15 08/28/21 07:00 BP 122/77 08/28/21 07:00 Pulse Ox 93 L 08/28/21 07:00 Intake & Output 08/27/21 08/28/21 08/28/21 18:59 06:59 18:59 Intake Total 1319.365 462 Output Total 290 150 Balance 1029.365 312 Weight 79.2 kg Intake: IV 792 462 0.9 NaCl- 420 390 Dextrose 5% in Water 100 300 ml @ 618 mls/hr IV .Q10M PRN with Amiodarone 150 mg Rx#:[id number] Pressure Bag 72 72 Intake, IV Titration 7.365 Amount Insulin Regular 100 unit 7.365 In Sodium Chloride 0.9% 100 ml @ Per Protocol IV .Q0M [facility] Rx#:[id number] Oral 520 Output: Chest Tube Drainage 130 Rt Pleural 130 Urine 160 150 Other: Voiding Method Indwelling Catheter Urinal # Voids 400 ABP, PAP, CO, CI - Last Documented Arterial Blood Pressure 112/60 Pulmonary Artery Pressure 23/11 Cardiac Output 5.4 Cardiac Index 2.7 - Exam GENERAL EXAM: Alert, very pleasant, 76-year-old male, oriented 3, sitting up in the recliner, he is currently on 5 L of oxygen the pulse ox of 96% comfortable in no apparent distress. HEAD: Normocephalic/atraumatic. EYES: Normal reaction of pupils, equal size. Conjunctiva pink, sclera white. NOSE: Clear with pink turbinates. THROAT: No erythema or exudates. NECK: No masses, no JVD, no thyroid enlargement, no adenopathy. CHEST: No chest wall deformity. Symmetrical expansion. Midsternal incision is clean dry and intact, mediastinal and right pleural chest tubes have been discontinued, chest tube sites are clean dry and intact. AV wires are in place, grounded LUNGS: Equal air entry with no crackles, wheeze, rhonchi or dullness. CVS: Regular rate and rhythm, normal S1 and S2, no gallops, no murmurs, no rubs ABDOMEN: Soft, nontender. No hepatosplenomegaly, normal bowel sounds, no guarding or rigidity. EXTREMITIES: No clubbing, no edema, no cyanosis, 2+ pulses and upper and lower extremities. MUSCULOSKELETAL: Muscle strength and tone normal. SPINE: No scoliosis or deformity SKIN: No rashes CENTRAL NERVOUS SYSTEM: Awake and alert, oriented 3 No focal deficits, tone is normal in all 4 extremities. - Labs CBC & Chem 7: 08/28/21 05:15 08/28/21 05:15 Labs: Abnormal Lab Results - Last 24 Hours (Table) 08/27/21 08/27/21 08/27/21 Range/Units 11:12 17:01 21:13 RBC (4.30-5.90) m/uL Hgb (13.0-17.5) gm/dL Hct (39.0-53.0) % Plt Count (150-450) k/uL Neutrophils # (1.3-7.7) k/uL Lymphocytes # (1.0-4.8) k/uL Sodium (137-145) mmol/L Chloride (98-107) mmol/L Creatinine (0.66-1.25) mg/dL Glucose (74-99) mg/dL POC Glucose (mg/dL) 186 H 144 H 145 H (75-99) mg/dL Calcium (8.4-10.2) mg/dL Total Protein (6.3-8.2) g/dL Albumin (3.5-5.0) g/dL 08/28/21 08/28/21 08/28/21 Range/Units 05:15 05:15 06:47 RBC 3.26 L (4.30-5.90) m/uL Hgb 10.6 L (13.0-17.5) gm/dL Hct 31.0 L (39.0-53.0) % Plt Count 95 L (150-450) k/uL Neutrophils # 8.3 H (1.3-7.7) k/uL Lymphocytes # 0.7 L (1.0-4.8) k/uL Sodium 134 L (137-145) mmol/L Chloride 108 H (98-107) mmol/L Creatinine 0.61 L (0.66-1.25) mg/dL Glucose 129 H (74-99) mg/dL POC Glucose (mg/dL) 131 H (75-99) mg/dL Calcium 8.0 L (8.4-10.2) mg/dL Total Protein 5.4 L (6.3-8.2) g/dL Albumin 3.1 L (3.5-5.0) g/dL Assessment and Plan Plan: Assessment: #1. Symptomatic mitral valve regurgitation, status post mitral valve repair, exclusion of left atrial appendage, and intraoperative BECKY on 08/25/2021, postoperative day #3 #2. Routine postoperative ventilator management, patient was successfully weaned and extubated on postoperative day #0, at the 1858, 2 minutes before 6 hour nicolas from his OR exit time #3. Postoperative A. fib with RVR, and expected outcome of mitral valve surgery, patient has currently converted back to sinus, amiodarone drip will be converted to oral. He started on Arixtra #4. Hyperlipidemia #5. Former smoker #6. History of cataracts #7. History of basal cell carcinoma with surgical removal #8. Moderately severe COPD with preoperative PFT of 67% predicted Plan: No acute events overnight Patient has converted back to sinus rhythm Hemodynamically has been stable His antiarrhythmics heparin converted to oral, and patient is being started on anticoagulation Today's labs and chest x-rays have been noted Tolerating ambulation Most of his lines, both of the chest tubes Quinones catheter has been discontinued Patient is breathing comfortably, continue weaning FiO2 Encourage ambulation, and incentive spirometer use Breathing treatments as needed Patient is now an overflow for [facility] Continue to follow closely with CT surgery I have personally seen and examined the patient, performed the documentation and the assessment and plan as written. Number of minutes spent on the visit: [10] Time with Patient: Less than 30
[2021-08-28] MEDS: FONDAPARINUX 7.5 MG/0.6 ML SYRINGE SQ SCH (09:45)
[2021-08-28 11:54] LABS: Glucose,Whole Blood 185 mg/dL (75-99)
--- NOTE | 2021-08-28 11:56 | P.PN ---
Subjective Known mitral regurgitation status post mitral valve repair postop day #3. Patient is doing well. He does not have chest pain or difficulty in breathing. He is back in sinus rhythm after receiving amiodarone. On exam comfortable at rest able signs are stable chest exam reveals diminished air entry at the bases heart exam reveals first and second heart sounds no gallop abdomen is soft exam extremities did not reveal any edema per for pulses are felt Labs show potassium of 3.9 creatinine is 0.6 hemoglobin is 10.6 and the platelet count is 95 Patient is currently on amiodarone 400 twice a day aspirin and Lipitor Plavix Lopressor 25 twice a day and fondaparinux Assessment and plan: Severe mitral regurgitation status post mitral valve repair Postop atrial fibrillation Continue current medications Increase activity As incentive spirometry Objective - Vital Signs Vital signs: Vital Signs Temp 98.8 F 08/27/21 20:00 Pulse 82 08/28/21 07:59 Resp 15 08/28/21 07:00 BP 122/77 08/28/21 07:00 Pulse Ox 93 L 08/28/21 07:00 Intake & Output 08/27/21 08/28/21 08/28/21 18:59 06:59 18:59 Intake Total 1319.365 462 Output Total 290 150 Balance 1029.365 312 Weight 79.2 kg Intake: IV 792 462 0.9 NaCl- 420 390 Dextrose 5% in Water 100 300 ml @ 618 mls/hr IV .Q10M PRN with Amiodarone 150 mg Rx#:[id number] Pressure Bag 72 72 Intake, IV Titration 7.365 Amount Insulin Regular 100 unit 7.365 In Sodium Chloride 0.9% 100 ml @ Per Protocol IV .Q0M [facility] Rx#:[id number] Oral 520 Output: Chest Tube Drainage 130 Rt Pleural 130 Urine 160 150 Other: Voiding Method Indwelling Catheter Urinal # Voids 400 ABP, PAP, CO, CI - Last Documented Arterial Blood Pressure 112/60 Pulmonary Artery Pressure 23/11 Cardiac Output 5.4 Cardiac Index 2.7 - Labs CBC & Chem 7: 08/28/21 05:15 08/28/21 05:15 Labs: Abnormal Lab Results - Last 24 Hours (Table) 08/27/21 08/27/21 08/28/21 Range/Units 17:01 21:13 05:15 RBC 3.26 L (4.30-5.90) m/uL Hgb 10.6 L (13.0-17.5) gm/dL Hct 31.0 L (39.0-53.0) % Plt Count 95 L (150-450) k/uL Neutrophils # 8.3 H (1.3-7.7) k/uL Lymphocytes # 0.7 L (1.0-4.8) k/uL Sodium (137-145) mmol/L Chloride (98-107) mmol/L Creatinine (0.66-1.25) mg/dL Glucose (74-99) mg/dL POC Glucose (mg/dL) 144 H 145 H (75-99) mg/dL Calcium (8.4-10.2) mg/dL Total Protein (6.3-8.2) g/dL Albumin (3.5-5.0) g/dL 08/28/21 08/28/21 Range/Units 05:15 06:47 RBC (4.30-5.90) m/uL Hgb (13.0-17.5) gm/dL Hct (39.0-53.0) % Plt Count (150-450) k/uL Neutrophils # (1.3-7.7) k/uL Lymphocytes # (1.0-4.8) k/uL Sodium 134 L (137-145) mmol/L Chloride 108 H (98-107) mmol/L Creatinine 0.61 L (0.66-1.25) mg/dL Glucose 129 H (74-99) mg/dL POC Glucose (mg/dL) 131 H (75-99) mg/dL Calcium 8.0 L (8.4-10.2) mg/dL Total Protein 5.4 L (6.3-8.2) g/dL Albumin 3.1 L (3.5-5.0) g/dL
[2021-08-28 17:11] LABS: Glucose,Whole Blood 103 mg/dL (75-99)
[2021-08-28] MEDS: TAMSULOSIN 0.4 MG CAP.ER.24H PO SCH (18:18)
[2021-08-28 19:56] LABS: Glucose,Whole Blood 157 mg/dL (75-99)
[2021-08-28] MEDS ORDERED: HYDROcodone/APAP 5-325MG 1 EACH TAB PO STA (19:56)
[2021-08-28] MEDS: SENNOSIDES-DOCUSATE SODIUM 1 EACH TAB PO SCH (20:03)
[2021-08-28] MEDS: LATANOPROST 0.005% OPHTH DROPS 2.5 ML BTL BOTH EYES SCH (20:04)
[2021-08-29 06:16] LABS: HCT 32.3 % (39.0-53.0); MCH 32.9 pg (25.0-35.0); MCHC 33.9 g/dL (31.0-37.0); Mean Platelet Volume 8.7; Platelet Count 122 k/uL (150-450); RBC 3.33 m/uL (4.30-5.90); RDW 12.9 % (11.5-15.5); WBC 8.4 k/uL (3.8-10.6)
[2021-08-29 06:33] LABS: African American GFR (CKD) >90 (>60 ml/min/1.73 sqM); Anion Gap 5 mmol/L; Blood Urea Nitrogen 19 mg/dL (9-20); Calcium 7.9 mg/dL (8.4-10.2); Carbon Dioxide 27 mmol/L (22-30); Chloride 106 mmol/L (98-107); Glucose 118 mg/dL (74-99); Non-African American GFR(CKD) 88 (>60 ml/min/1.73 sqM); Potassium 3.8 mmol/L (3.5-5.1); Sodium 138 mmol/L (137-145)
[2021-08-29] MEDS ORDERED: POTASSIUM CHLORIDE ER 20 MEQ TAB.ER PO STA (06:55)
[2021-08-29 06:57] LABS: Glucose,Whole Blood 118 mg/dL (75-99)
[2021-08-29] MEDS: INSULIN ASPART (NovoLOG) 100 UNIT/ML VIAL SQ SCH ×4 (07:10→20:52)
--- NOTE | 2021-08-29 07:10 | XR ---
EXAMINATION TYPE: XR chest 2V DATE OF EXAM: 08/29/2021 COMPARISON: 08/28/2021 HISTORY: Shortness of breath TECHNIQUE: Frontal and lateral views of the chest are obtained. FINDINGS: Sternotomy wires are in place. Postoperative changes with bilateral atelectasis and small effusions. Pulmonary venous congestion. Previously noted tiny 5% right apical pneumothorax is not identified on today's study. Mediastinal structures are stable and grossly unremarkable. No evidence for hilar prominence. Degenerative changes dorsal spine. IMPRESSION: 1. Previously noted tiny 5% right apical pneumothorax is not identified on today's study. Otherwise s table postoperative change
[2021-08-29] MEDS: PANTOPRAZOLE 40 MG TABLET PO SCH (07:12)
[2021-08-29] MEDS ORDERED: CALCIUM GLUCONATE 2 GM in SODIUM CHLORIDE 0.9% 100 ML IVPB ONE (07:45)
[2021-08-29] MEDS: ATORVASTATIN 40 MG TAB PO SCH (08:41)
[2021-08-29] MEDS: AMIODARONE 200 MG TAB PO SCH ×2 (08:41→21:08)
[2021-08-29] MEDS: METOPROLOL TARTRATE 25 MG TAB PO SCH ×2 (08:41→21:09)
[2021-08-29] MEDS: CLOPIDOGREL 75 MG TAB PO SCH (08:41)
[2021-08-29] MEDS: ACETAMINOPHEN TAB 325 MG TAB PO PRN ×2 (08:45→21:09)
[2021-08-29] MEDS: ASPIRIN 325 MG TAB PO SCH (08:45)
[2021-08-29] MEDS: IPRATROPIUM-ALBUTEROL 3 ML NEB INHALATION SCH ×4 (08:57→20:53)
[2021-08-29] MEDS ORDERED: FUROSEMIDE 10 MG/ML 2 ML VIAL IV ONE (09:07)
--- NOTE | 2021-08-29 09:47 | P.PN ---
Subjective Progress Note Date: 08/29/21 Principal diagnosis: Symptomatic mitral valve regurgitation 74-year-old white male patient with past medical history of hypertension, former smoker, COPD, who had symptoms of exertional dyspnea. His workup included cardiac catheterization, 2-D echo and transesophageal echocardiogram. He has preserved left ventricular function, mild left atrial dilatation, he was found to have severe prolapse of P2 was severe mitral valve regurgitation. His carotid ultrasound showed no significant stenosis. Cardiac cath on the 07/13/2019 showed normal coronary arteries, and normal left ventricular size and systolic function with severe mitral regurgitation. She also had low-dose lung CT which showed stable 3 mm subpleural nodule in the right middle lobe, and stable 3-4 mm right upper lobe nodule, moderately severe COPD. Patient actually did not have surgery until today on 08/25/2021 he came in for mitral valve repair, exclusion of the left atrial appendage and intraoperative t ransesophageal echocardiogram. We are seeing the patient is postoperative period, he is intubated and sedated, he is on small dose to prevent a 25 mics per kilo per minute, 0.50 ML per hour. No vasoactive drips. Vent settings are assist-control with a rate of 16, tidal volume is 400, FiO2 100% and PEEP of 5. Postoperative blood gases pending. Hemodynamically he is stable, blood pressures 102/56, PA pressures 22 over 1, CVP 3, cardiac output is 4.0, cardiac index is 2.1. 2 mediastinal chest tubes connected together with 140 of sanguinous output in the Pleur-evac, and 50 mL of sanguinous output in the right pleural chest tube. In sinus mechanism. On 08/26/2021 patient seen in follow-up in intensive care unit. He was successfully weaned and extubated on postoperative day #0, at 1858, 2 minutes under his 6 hour nicolas from the OR exit time. He sitting up in a chair today, awake and alert, is having some mild to moderate discomfort in his back, not so much incisional discomfort, hemodynamically stable, he is currently on normal saline at 50 ML per hour, insulin drip is at 2.5 units per hour, no vasoactive drips, she is in sinus mechanism, he is a paced at 80 BPM, blood pressure is 128/53, PA pressures 23/11, CVP is 6, cardiac output is 3.4, cardiac index is 1.7. Chest x-ray showing a trace 9 mm right apical pneumothorax versus 7 mm previously, trace left apical pneumothorax measuring 6 mm, and patchy left basilar retrocardiac atelectasis which has increased. Patient is working on incentive spirometer, he is achieving 2000 on it today. on 4 L of oxygen pulse ox is 95%. Breathing fairly comfortable, lung sounds are clear, diminished at the bases. Patient has 2 mediastinal and one right pleural chest tube, there is 450 mL of the mediastinal and 300 mL out of the right pleural over last 24 hours of thin serosanguineous output. Today's labs have been reviewed, white blood cell count is 13.1, hemoglobin is 11.8, sodium is 137, potassium is 3.6, chloride is 108, CO2 is 20, BUN is 18, creatinine 0.70. Patient is tolerating oral intake. His surgical incisions are clean dry and intact. On 08/27/2021 patient seen in follow-up in intensive care unit, disease pos toperative day #2, status post mitral valve repair, left atrial appendage exclusion. Patient went into A. fib with RVR last night at about 1:00 in the morning. Oxygenation had worsened since then as well, currently on 7 L of oxygen pulse ox is 96-97%, does not appear to be in any acute distress, this morning he remains in atrial fibrillation, amiodarone has been started by CT surgery, currently infusing at 0.5 milligrams per minute. Insulin is currently pulse, 0.9 normal saline at a rate of 30 ML per hour, today's chest x-ray reviewed showing tiny right apical pneumothorax and tiny left apical pneumothorax estimated at less than 10% each, right basilar chest tube is still in place, patchy basilar atelectasis. Incentive spirometer effort is slightly worse compared to yesterday, patient is achieving 1500 on it today compared 2000 yesterday. Mediastinal chest tube was discontinued yesterday, right pleural chest tube remains in place, with thin serosanguineous output with approximately 120 mL of output in the last 24 hours. His back pain is fairly well controlled he states as long as he gets the medication. He has ambulated and tolerated activity fairly well. Today's labs have been reviewed, blood cell count is 18.6, hemoglobin is 12.3, sodium is 136, potassium is 4.0, chloride is 108, CO2 is 21, BUN is 18 creatinine 0.76. Surgical incisions clean dry and intact. On 08/28/2021 patient seen in follow-up in the intensive care unit, today's postoperative day #3, status post mitral valve repair, left atrial appendage exclusion. Patient converted back to sinus rhythm yesterday at 3:30 in the afternoon, hemodynamically has remained stable, he has been transitioned to oral amiodarone, both his chest tubes have been discontinued, his Quinones, and other lines have been discontinued. Currently just has AV wires in place that are grown, intrinsic rhythm is sinus. Not requiring any pacing, breathing comfortably, his back pain is better controlled, he is on 5 L of oxygen pulse ox is 93-95%, hemodynamically has been stable, today's chest x-ray has been reviewed showing bilateral infiltrate, pleural effusion correlates with mild CHF, tiny right apical pneumothorax measuring less than 5 cm, left apical pneumothorax not well seen area incentive spirometer effort is 1.4 L. Patient has tolerated ambulation. His surgical incisions are clean dry and intact, he is tolerating oral intake, no abdominal pain. On 08/29/2021 patient is seen in follow-up in the intensive care unit. He is awake and alert in no acute distress. Today's postoperative day #4 status post mitral valve repair, left atrial appendage exclusion. Remains in sinus mechanism, currently not on any IV fluids or IV drugs. Breathing comfortably, lung sounds are clear, incentive spirometry every 1.5 L. Chest x-ray showing tiny 5% right apical pneumothorax, otherwise stable postoperative changes. Today's labs have been reviewed, white blood cell count is 8.4, hemoglobin is 11.0, platelet count is 122, electrolytes and renal profile are within normal limits. Patient has been tolerating ambulation. AV wires are still in place, all chest tubes Quinones catheterization of the catheters have been discontinued. Patient has received a dose of IV Lasix today, remains on breathing treatments, his IV amiodarone has been converted to oral amiodarone, he remains on aspirin, Lipitor, Plavix, he was started on Arixtra for anticoagulation. Incisions are clean dry and intact. Objective - Vital Signs Vital signs: Vital Signs Temp 98.2 F 08/29/21 08:00 Pulse 82 08/29/21 09:10 Resp 13 08/29/21 09:00 BP 109/66 08/29/21 09:00 Pulse Ox 93 L 08/29/21 06:00 Intake & Output 08/28/21 08/29/21 08/29/21 18:59 06:59 18:59 Intake Total 756 360 340 Output Total 1375 350 Balance -619 10 340 Weight 78.3 kg Intake: IV 276 360 220 0.9 NaCl- 270 360 120 Calcium Gluconate 2 gm In 100 Sodium Chloride 0.9% 100 ml @ 100 mls/hr IVPB ONCE ONE Rx#:[id number] Pressure Bag 6 Oral 480 120 Output: Urine 1375 350 Other: Voiding Method Urinal # Voids 1 ABP, PAP, CO, CI - Last Documented Arterial Blood Pressure 112/60 Pulmonary Artery Pressure 23/11 Cardiac Output 5.4 Cardiac Index 2.7 - Exam GENERAL EXAM: Alert, very pleasant, 76-year-old male, oriented 3, sitting up in the recliner, he is currently on 3 L of oxygen the pulse ox of 96% comfortable in no apparent distress. HEAD: Normocephalic/atraumatic. EYES: Normal reaction of pupils, equal size. Conjunctiva pink, sclera white. NOSE: Clear with pink turbinates. THROAT: No erythema or exudates. NECK: No masses, no JVD, no thyroid enlargement, no adenopathy. CHEST: No chest wall deformity. Symmetrical expansion. Midsternal incision is clean dry and intact, mediastinal and right pleural chest tubes have been discontinued, chest tube sites are clean dry and intact. AV wires are in place, grounded LUNGS: Equal air entry with no crackles, wheeze, rhonchi or dullness. CVS: Regular rate and rhythm, normal S1 and S2, no gallops, no murmurs, no rubs ABDOMEN: Soft, nontender. No hepatosplenomegaly, normal bowel sounds, no guarding or rigidity. EXTREMITIES: No clubbing, no edema, no cyanosis, 2+ pulses and upper and lower extremities. MUSCULOSKELETAL: Muscle strength and tone normal. SPINE: No scoliosis or deformity SKIN: No rashes CENTRAL NERVOUS SYSTEM: Awake and alert, oriented 3 No focal deficits, tone is normal in all 4 extremities. - Labs CBC & Chem 7: 08/29/21 05:36 08/29/21 05:36 Labs: Abnormal Lab Results - Last 24 Hours (Table) 08/28/21 08/28/21 08/28/21 Range/Units 11:53 17:10 19:55 RBC (4.30-5.90) m/uL Hgb (13.0-17.5) gm/dL Hct (39.0-53.0) % Plt Count (150-450) k/uL Glucose (74-99) mg/dL POC Glucose (mg/dL) 185 H 103 H 157 H (75-99) mg/dL Calcium (8.4-10.2) mg/dL 08/29/21 08/29/21 08/29/21 Range/Units 05:36 05:36 06:56 RBC 3.33 L (4.30-5.90) m/uL Hgb 11.0 L (13.0-17.5) gm/dL Hct 32.3 L (39.0-53.0) % Plt Count 122 L (150-450) k/uL Glucose 118 H (74-99) mg/dL POC Glucose (mg/dL) 118 H (75-99) mg/dL Calcium 7.9 L (8.4-10.2) mg/dL Assessment and Plan Plan: Assessment: #1. Symptomatic mitral valve regurgitation, status post mitral valve repair, exclusion of left atrial appendage, and intraoperative BECKY on 08/25/2021, postoperative day #4 #2. Routine postoperative ventilator management, patient was successfully weaned and extubated on postoperative day #0, at the 1858, 2 minutes before 6 hour nicolas from his OR exit time #3. Postoperative A. fib with RVR, and expected outcome of mitral valve surgery, patient has currently converted back to sinus, amiodarone drip will be converted to oral. He started on Arixtra #4. Hyperlipidemia #5. Former smoker #6. History of cataracts #7. History of basal cell carcinoma with surgical removal #8. Moderately severe COPD with preoperative PFT of 67% predicted Plan: No acute events overnight he has maintained sinus mechanism Hemodynamically has been stable No acute events overnight Today's labs and chest x-rays have been noted Tolerating ambulation Breathing comfortably, Continue weaning FiO2 Patient is awaiting a bed on 3 S. monitored bed I have personally seen and examined the patient, performed the documentation and the assessment and plan as written. Number of minutes spent on the visit: [10] Time with Patient: Less than 30
[2021-08-29] MEDS: FONDAPARINUX 7.5 MG/0.6 ML SYRINGE SQ SCH (10:31)
--- NOTE | 2021-08-29 10:31 | P.PN ---
Subjective Progress Note Date: 08/29/21 Known mitral regurgitation status post mitral valve repair postop day #4. Patient is doing well seen sitting in the chair today. Patient denies chest pain or difficulty breathing. Patient's lungs are diminished at the bases. Patient remains in sinus rhythm. Patient continues on amiodarone aspirin Lipi tor Plavix Lopressor. Patient is on Arixtra for anticoagulation. Platelet count has improved today at 122 and hemoglobin is 11. Patient remains on 3 L nasal cannula will try to wean oxygen. Chest x-ray shows no acute cardiopulmonary changes from prior study Objective - Vital Signs Vital signs: Vital Signs Temp 98.2 F 08/29/21 08:00 Pulse 82 08/29/21 09:10 Resp 13 08/29/21 09:00 BP 109/66 08/29/21 09:00 Pulse Ox 93 L 08/29/21 06:00 Intake & Output 08/28/21 08/29/21 08/29/21 18:59 06:59 18:59 Intake Total 756 360 340 Output Total 1375 350 Balance -619 10 340 Weight 78.3 kg Intake: IV 276 360 220 0.9 NaCl- 270 360 120 Calcium Gluconate 2 gm In 100 Sodium Chloride 0.9% 100 ml @ 100 mls/hr IVPB ONCE ONE Rx#:[id number] Pressure Bag 6 Oral 480 120 Output: Urine 1375 350 Other: Voiding Method Urinal # Voids 1 ABP, PAP, CO, CI - Last Documented Arterial Blood Pressure 112/60 Pulmonary Artery Pressure 23/11 Cardiac Output 5.4 Cardiac Index 2.7 - Exam PHYSICAL EXAM: VITAL SIGNS: Reviewed. GENERAL: Well-developed in no acute distress. HEENT: Head is normocephalic. Pupils are equal, round. Sclerae anicteric. Mucous membranes of the mouth are moist. NECK: Supple. No JVD or thyromegaly RESPIRATORY: Respirations even and unlabored. Lungs diminished to auscultation in the base. CARDIO: Regular rate and rhythm. S1 and S2 heard. No murmur or gallops. Mediastinal incision dry and intact EXTREMITIES: Normal range of motion. No clubbing or cyanosis. Peripheral pulses intact. Negative for bilateral lower extremity edema NEURO: Orientated to person, time, mood is appropriate - Labs CBC & Chem 7: 08/29/21 05:36 08/29/21 05:36 Labs: Abnormal Lab Results - Last 24 Hours (Table) 08/28/21 08/28/21 08/28/21 Range/Units 11:53 17:10 19:55 RBC (4.30-5.90) m/uL Hgb (13.0-17.5) gm/dL Hct (39.0-53.0) % Plt Count (150-450) k/uL Glucose (74-99) mg/dL POC Glucose (mg/dL) 185 H 103 H 157 H (75-99) mg/dL Calcium (8.4-10.2) mg/dL 08/29/21 08/29/21 08/29/21 Range/Units 05:36 05:36 06:56 RBC 3.33 L (4.30-5.90) m/uL Hgb 11.0 L (13.0-17.5) gm/dL Hct 32.3 L (39.0-53.0) % Plt Count 122 L (150-450) k/uL Glucose 118 H (74-99) mg/dL POC Glucose (mg/dL) 118 H (75-99) mg/dL Calcium 7.9 L (8.4-10.2) mg/dL Assessment and Plan Assessment: Severe mitral regurgitation status post mitral valve repair Postoperative atrial fibrillation with controlled ventricle rate Plan: Continue with all current cardiac medications increase activity as tolerated Encourage incentives primary use Continue to titrate down oxygen as tolerated Continue telemetry monitoring Further recommendations based on clinical course The above impression and plan of care have been discussed and directed by the signing physician. Kinza Goodwin, nurse practitioner, acting as scribe for signing physician.
--- NOTE | 2021-08-29 10:35 | P.PN ---
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 Previous history of tobacco dependence with mild COPD, remote history of pneumonia, peripheral arterial disease with history of abdominal aortic aneurysm, hiatal hernia, hyperlipidemia, basal cell skin cancer approximately 3-4 years ago. Vaccinated and boosted against Covid POD #4 complex mitral valve repair consisting of construction of 6 Primo cords to P2 segment along with posterior annuloplasty using an incomplete AnnuloFlex 36 mm band, exclusion of the left atrial appendage using a 35 mm AtriClip, intraoperative transesophageal echocardiogram and epi-aortic scanning Postoperative acute blood loss anemia and thrombocytopenia, expected given hemodilution and cardiopulmonary bypass pump Paroxysmal atrial fibrillation, known common occurrence after open heart surgery The patient was seen and examined this morning with sitting up in a recliner in no acute distress. States post surgical pain is mostly controlled with current medication regimen, denies shortness of breath. Remains in sinus rhythm and hemodynamically stable. Patient ambulated in the hallway yesterday with physical therapy. Actively using incentive spirometer. No other new concerns. Objective - Vital Signs Vital signs: Vital Signs Temp 98.2 F 08/29/21 08:00 Pulse 82 08/29/21 09:10 Resp 13 08/29/21 09:00 BP 109/66 08/29/21 09:00 Pulse Ox 93 L 08/29/21 06:00 Intake & Output 08/28/21 08/29/21 08/29/21 18:59 06:59 18:59 Intake Total 756 360 340 Output Total 1375 350 Balance -619 10 340 Weight 78.3 kg Intake: IV 276 360 220 0.9 NaCl- 270 360 120 Calcium Gluconate 2 gm In 100 Sodium Chloride 0.9% 100 ml @ 100 mls/hr IVPB ONCE ONE Rx#:[id number] Pressure Bag 6 Oral 480 120 Output: Urine 1375 350 Other: Voiding Method Urinal # Voids 1 ABP, PAP, CO, CI - Last Documented Arterial Blood Pressure 112/60 Pulmonary Artery Pressure 23/11 Cardiac Output 5.4 Cardiac Index 2.7 - Exam CONSTITUTIONAL: Appears comfortable, cooperative, no acute distress RESPIRATORY: Lungs sounds diminished bilaterally. Respirations even, nonlabored. Currently on room air with oxygen saturation 96%. Able to achieve 1500 mL on incentive spirometry. Strong productive cough. CARDIOVASCULAR: S1, S2 present. Regular rate and rhythm, sinus rhythm on telemetry. Sternum stable. Palpable peripheral pulses bilaterally. No edema present. No calf pain or tenderness noted. Heart hugger in place with patient demonstrating appropriate use. Antiembolism stockings, SCDs present. GASTROINTESTINAL: Abdomen soft, nontender, nondistended. Active bowel sounds present 4 quadrants. Tolerating diet. Positive bowel movement this morning GENITOURINARY: Continues to void INTEGUMENTARY: Skin is warm and dry with evidence of good perfusion. Anterior chest incision well approximated and covered with dry intact dressing NEUROLOGIC: Cranial nerves II through XII intact MUSKULOSKELETAL: Able to move all extremities, strength equal bilaterally, gait normal PSYCHIATRIC: Alert and oriented to person place and time, appropriate affect, intact judgment and insight INVASIVE LINES AND TUBES: A/V epicardial pacemaker wires present, grounded. - Allied health notes Allied health notes reviewed: nursing - Labs CBC & Chem 7: 08/29/21 05:36 08/29/21 05:36 Labs: Abnormal Lab Results - Last 24 Hours (Table) 08/28/21 08/28/21 08/28/21 Range/Units 11:53 17:10 19:55 RBC (4.30-5.90) m/uL Hgb (13.0-17.5) gm/dL Hct (39.0-53.0) % Plt Count (150-450) k/uL Glucose (74-99) mg/dL POC Glucose (mg/dL) 185 H 103 H 157 H (75-99) mg/dL Calcium (8.4-10.2) mg/dL 08/29/21 08/29/21 08/29/21 Range/Units 05:36 05:36 06:56 RBC 3.33 L (4.30-5.90) m/uL Hgb 11.0 L (13.0-17.5) gm/dL Hct 32.3 L (39.0-53.0) % Plt Count 122 L (150-450) k/uL Glucose 118 H (74-99) mg/dL POC Glucose (mg/dL) 118 H (75-99) mg/dL Calcium 7.9 L (8.4-10.2) mg/dL - Imaging and Cardiology Chest x-ray: report reviewed, image reviewed Assessment and Plan Assessment: 1. 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 Preserved left ventricular function 3. History of tobacco dependence with recent cessation 4. Mild COPD with preoperative FEV1 65% of predicted 5. Remote history of pneumonia 6. Peripheral arterial disease with history of abdominal aortic aneurysm 7. Hiatal hernia 8. Hyperlipidemia, treated, cholesterol 160, LDL 81 9. History of basal cell skin cancer approximately 3-4 years ago with removal 10. Vaccinated and boosted against Covid 11. Postoperative acute blood loss anemia and thrombocytopenia, expected 12. Paroxysmal atrial fibrillation, status post left atrial appendage ligation Plan: 1. Continue aspirin, Plavix, statin, beta jose. Will increase beta jose therapy as tolerated. 2. Continue amiodarone at 400 mg twice daily, no anticoagulation at this point 3. Encourage incentive spirometry 10 times every hour while awake. Bronchodilators per pulmonology 4. Increase activity as tolerated. PT/OT/cardiac rehab following 5. Will monitor daily labs and x-rays. Electrolyte replacement per protocol. Will give 20 mg IVP lasix 6. GI/DVT prophylaxis. 7. Pain control with current medication regimen. 8. Insulin management per primary care service. Patient is not diabetic, preoperative hemoglobin A1c 5.8%, however he does need tight blood sugar control to promote sternal union and to prevent infection 9. Epicardial pacemaker wires removed. Patient to remain on bedrest for 1 hour post-wire removal 10. Strict accurate intake and output. Daily weights 11. Transfer orders placed yesterday for 3 south cardiac stepdown unit. May transfer when bed available 12. Discharge planning in progress. Anticipate discharge to home with home care tomorrow 13. More recommendations to follow based on patient's progress Time with Patient: Greater than 30
[2021-08-29 13:33] LABS: Glucose,Whole Blood 134 mg/dL (75-99)
--- NOTE | 2021-08-29 15:07 | P.PN ---
Subjective Patient is awake alert oriented 3. In good spirits not complaining of any shortness of breath, chest pain or palpitations. Pending transfer to medical floor. Objective - Vital Signs Vital signs: Vital Signs Temp 98.2 F 08/29/21 08:00 Pulse 82 08/29/21 09:10 Resp 13 08/29/21 09:00 BP 109/66 08/29/21 09:00 Pulse Ox 93 L 08/29/21 06:00 Intake & Output 08/28/21 08/29/21 08/29/21 18:59 06:59 18:59 Intake Total 756 360 340 Output Total 1375 350 Balance -619 10 340 Weight 78.3 kg Intake: IV 276 360 220 0.9 NaCl- 270 360 120 Calcium Gluconate 2 gm In 100 Sodium Chloride 0.9% 100 ml @ 100 mls/hr IVPB ONCE ONE Rx#:[id number] Pressure Bag 6 Oral 480 120 Output: Urine 1375 350 Other: Voiding Method Urinal # Voids 1 ABP, PAP, CO, CI - Last Documented Arterial Blood Pressure 112/60 Pulmonary Artery Pressure 23/11 Cardiac Output 5.4 Cardiac Index 2.7 - Exam general patient is awake alert oriented 3 sitting up in chair slightly uncomfortable due to wiring Cardio normal S1/S2 heard,, heart hugger in place respiratory: no wheezing or rhonchi apperciated, slight decrease breathe sounds due to pain most likely. Abdo - soft non-tender Psychiatric: normal mood, AAOx3 Neuro - CN 2-12 grossly intact. - Labs CBC & Chem 7: 08/29/21 05:36 08/29/21 05:36 Labs: Abnormal Lab Results - Last 24 Hours (Table) 08/28/21 08/28/21 08/29/21 Range/Units 17:10 19:55 05:36 RBC 3.33 L (4.30-5.90) m/uL Hgb 11.0 L (13.0-17.5) gm/dL Hct 32.3 L (39.0-53.0) % Plt Count 122 L (150-450) k/uL Glucose (74-99) mg/dL POC Glucose (mg/dL) 103 H 157 H (75-99) mg/dL Calcium (8.4-10.2) mg/dL 03/05/1208/29/21 08/29/21 Range/Units 05:36 06:56 13:32 RBC (4.30-5.90) m/uL Hgb (13.0-17.5) gm/dL Hct (39.0-53.0) % Plt Count (150-450) k/uL Glucose 118 H (74-99) mg/dL POC Glucose (mg/dL) 118 H 134 H (75-99) mg/dL Calcium 7.9 L (8.4-10.2) mg/dL Assessment and Plan Assessment: assessment: #1severe mitral valve regurgitation, severe prolapse status post Repair of complex mitral valve #2 congestive heart failure with preserved ejection fraction #3 COPD not in acute exacerbation #4 hyperlipidemia #5 essential hypertension #6 thrombocytopenia most likely reactive #7 history of basal cell cancer #8 history of tobacco dependence #9 trace 9 mm right apical pneumothorax/left artifact versus apical pneumothorax measuring 6 mm #10 atrial fibrillation rate controlled post op plan: -admit to ICU level of care -Aspiration/fall precaution -Continue management as per ICU protocol -encourage incentive spirometry, daily x-rays -Replete electrolytes when necessary -maintain inpatient glucose levels less than 180 -Amiodarone switched to by mouth. -dvt px: Fondaparinux
[2021-08-29 16:29] LABS: Glucose,Whole Blood 117 mg/dL (75-99)
[2021-08-29 20:51] LABS: Glucose,Whole Blood 117 mg/dL (75-99)
[2021-08-29] MEDS: SENNOSIDES-DOCUSATE SODIUM 1 EACH TAB PO SCH (20:52)
[2021-08-29] MEDS ORDERED: AMIODARONE 200 MG TAB PO SCH (21:00)
[2021-08-29] MEDS: TAMSULOSIN 0.4 MG CAP.ER.24H PO SCH (21:08)
[2021-08-29] MEDS: LATANOPROST 0.005% OPHTH DROPS 2.5 ML BTL BOTH EYES SCH (21:10)
[2021-08-30 05:07] VITALS: TEMP 98.1
[2021-08-30 06:21] LABS: HCT 31.4 % (39.0-53.0); HGB 10.5 gm/dL (13.0-17.5); MCH 32.7 pg (25.0-35.0); MCHC 33.5 g/dL (31.0-37.0); MCV 97.5 fL (80.0-100.0); Mean Platelet Volume 8.1; Platelet Count 160 k/uL (150-450); RBC 3.22 m/uL (4.30-5.90); RDW 13.6 % (11.5-15.5)
[2021-08-30 06:29] LABS: Glucose,Whole Blood 114 mg/dL (75-99)
[2021-08-30 06:34] LABS: African American GFR (CKD) >90 (>60 ml/min/1.73 sqM); Anion Gap 6 mmol/L; Blood Urea Nitrogen 19 mg/dL (9-20); Carbon Dioxide 27 mmol/L (22-30); Chloride 106 mmol/L (98-107); Glucose 110 mg/dL (74-99); Non-African American GFR(CKD) 84 (>60 ml/min/1.73 sqM); Potassium 3.6 mmol/L (3.5-5.1); Sodium 139 mmol/L (137-145)
[2021-08-30] MEDS: INSULIN ASPART (NovoLOG) 100 UNIT/ML VIAL SQ SCH (06:39)
[2021-08-30] MEDS: PANTOPRAZOLE 40 MG TABLET PO SCH (06:54)
--- NOTE | 2021-08-30 07:15 | XR ---
EXAMINATION TYPE: XR chest 2V DATE OF EXAM: 08/30/2021 COMPARISON: 08/29/2021 HISTORY: Postop cardiac surgery TECHNIQUE: Frontal and lateral views of the chest are obtained. FINDINGS: No change in the bandlike opacity right upper lobe. There are postsurgical changes unchang ed compared to previous. There are small bilateral pleural effusions which are stable. There is no pn eumothorax. Heart size normal pulmonary vasculature is not grossly congested. IMPRESSION: Postop cardiac surgery changes stable small bilateral pleural effusions
--- NOTE | 2021-08-30 07:38 | P.PN ---
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 Previous history of tobacco dependence with mild COPD, remote history of pneumonia, peripheral arterial disease with history of abdominal aortic aneurysm, hiatal hernia, hyperlipidemia, basal cell skin cancer approximately 3-4 years ago. Vaccinated and boosted against Covid POD #5 complex mitral valve repair consisting of construction of 6 lizeth-chords to P2 segment along with posterior annuloplasty using an incomplete AnnuloFlex 36 mm band, exclusion of the left atrial appendage using a 35 mm AtriClip, intraoperative transesophageal echocardiogram and epi-aortic scanning Postoperative acute blood loss anemia and thrombocytopenia, expected given hemodilution and cardiopulmonary bypass pump Paroxysmal atrial fibrillation, known common occurrence after open heart surgery The patient was seen and examined this morning with sitting up in a recliner in no acute distress eating breakfast. States post surgical pain is controlled with current medication regimen, denies shortness of breath. Remains in sinus rhythm and hemodynamically stable. Patient has ambulated in the hallway multiple times without difficulty. Actively using incentive spirometer. Anticipate discharge to home today. No other new concerns. Objective - Vital Signs Vital signs: Vital Signs Temp 98.1 F 08/30/21 04:00 Pulse 81 08/30/21 04:00 Resp 19 08/30/21 04:00 BP 106/65 08/30/21 04:00 Pulse Ox 98 08/30/21 04:00 Intake & Output 08/29/21 08/30/21 08/30/21 18:59 06:59 18:59 Intake Total 1140 400 Output Total 800 450 Balance 340 -50 Weight 77.3 kg Intake: IV 220 0.9 NaCl- 120 Calcium Gluconate 2 gm In 100 Sodium Chloride 0.9% 100 ml @ 100 mls/hr IVPB ONCE ONE Rx#:[id number] Oral 920 400 Output: Urine 800 450 Other: Voiding Method Toilet Urinal # Voids 1 1 ABP, PAP, CO, CI - Last Documented Arterial Blood Pressure 112/60 Pulmonary Artery Pressure 23/11 Cardiac Output 5.4 Cardiac Index 2.7 - Exam CONSTITUTIONAL: Appears comfortable, cooperative, no acute distress RESPIRATORY: Lungs sounds diminished bilaterally. Respirations even, nonlabored. Currently on room air with oxygen saturation 98%. Able to achieve 2000 mL on incentive spirometry. Strong productive cough. CARDIOVASCULAR: S1, S2 present. Regular rate and rhythm, sinus rhythm on telemetry. Sternum stable. Palpable peripheral pulses bilaterally. No edema present. No calf pain or tenderness noted. Heart hugger in place with patient demonstrating appropriate use. Antiembolism stockings, SCDs present. GASTROINTESTINAL: Abdomen soft, nontender, nondistended. Active bowel sounds present 4 quadrants. Tolerating diet. Positive bowel movement GENITOURINARY: Continues to void INTEGUMENTARY: Skin is warm and dry with evidence of good perfusion. Anterior chest incision well approximated NEUROLOGIC: Cranial nerves II through XII intact MUSKULOSKELETAL: Able to move all extremities, strength equal bilaterally, gait normal PSYCHIATRIC: Alert and oriented to person place and time, appropriate affect, intact judgment and insight - Allied health notes Allied health notes reviewed: nursing - Labs CBC & Chem 7: 08/30/21 05:44 08/30/21 05:44 Labs: Abnormal Lab Results - Last 24 Hours (Table) 08/29/21 08/29/21 08/29/21 Range/Units 13:32 16:27 20:49 RBC (4.30-5.90) m/uL Hgb (13.0-17.5) gm/dL Hct (39.0-53.0) % Glucose (74-99) mg/dL POC Glucose (mg/dL) 134 H 117 H 117 H (75-99) mg/dL Calcium (8.4-10.2) mg/dL 08/30/21 08/30/21 08/30/21 Range/Units 05:44 05:44 06:27 RBC 3.22 L (4.30-5.90) m/uL Hgb 10.5 L (13.0-17.5) gm/dL Hct 31.4 L (39.0-53.0) % Glucose 110 H (74-99) mg/dL POC Glucose (mg/dL) 114 H (75-99) mg/dL Calcium 8.0 L (8.4-10.2) mg/dL - Imaging and Cardiology Chest x-ray: report reviewed, image reviewed Assessment and Plan Assessment: 1. 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 Preserved left ventricular function 3. History of tobacco dependence with recent cessation 4. Mild COPD with preoperative FEV1 65% of predicted 5. Remote history of pneumonia 6. Peripheral arterial disease with history of abdominal aortic aneurysm 7. Hiatal hernia 8. Hyperlipidemia, treated, cholesterol 160, LDL 81 9. History of basal cell skin cancer approximately 3-4 years ago with removal 10. Vaccinated and boosted against Covid 11. Postoperative acute blood loss anemia and thrombocytopenia, expected 12. Paroxysmal atrial fibrillation, status post left atrial appendage ligation Plan: 1. Continue aspirin, Plavix, statin, beta jose. Will increase beta jose therapy as tolerated. 2. Continue amiodarone at 400 mg twice daily with stepdown dosage at discharge, no anticoagulation 3. Encourage incentive spirometry 10 times every hour while awake. Bronchodilators per pulmonology 4. Increase activity as tolerated. PT/OT/cardiac rehab following 5. Will monitor daily labs and x-rays. Electrolyte replacement per protocol. 6. GI/DVT prophylaxis. 7. Pain control with current medication regimen. 8. Insulin management per primary care service. Patient is not diabetic, preoperative hemoglobin A1c 5.8%, however he does need tight blood sugar control to promote sternal union and to prevent infection 9. Strict accurate intake and output. Daily weights 10. Discharge planning in progress. Anticipate discharge to home with home care today 11. More recommendations to follow based on patient's progress Time with Patient: Greater than 30
[2021-08-30] MEDS: IPRATROPIUM-ALBUTEROL 3 ML NEB INHALATION SCH (07:59)
[2021-08-30] MEDS ORDERED: POTASSIUM CHLORIDE ER 20 MEQ TAB.ER PO SCH (09:00)
--- NOTE | 2021-08-30 09:14 | P.DS ---
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 Preserved left ventricular function 3. History of tobacco dependence with recent cessation 4. Mild COPD with preoperative FEV1 65% of predicted 5. Remote history of pneumonia 6. Peripheral arterial disease with history of abdominal aortic aneurysm 7. Hiatal hernia 8. Hyperlipidemia, treated, cholesterol 160, LDL 81 9. History of basal cell skin cancer approximately 3-4 years ago with removal 10. Vaccinated and boosted against Covid 11. Postoperative acute blood loss anemia and thrombocytopenia, expected 12. Paroxysmal atrial fibrillation PRINCIPAL PROCEDURE: 1. Complex mitral valve repair consisting of construction of 6 lizeth-chords to P2 segment along with posterior annuloplasty using an incomplete AnnuloFlex 36 mm band 2. Exclusion of the left atrial appendage using a 35 mm AtriClip 3. Intraoperative transesophageal echocardiogram and epi-aortic scanning HISTORY OF PRESENT ILLNESS: This is a 76-year-old active gentleman who follows on an outpatient basis with Dr De La Rosa for primary care and Dr. Waldrop for cardiology. This gentleman had been followed by cardiology for mitral valve regurgitation with complaints of dyspnea on exertion with NYHA classification I- II symptoms. The patient was referred to Dr. Amos from cardiothoracic surgery. He was recommended to undergo mitral valve repair. The usual perioperative course was discussed in detail with the patient and his family, all risks and benefits were explained, all questions were answered, and consent was obtained to proceed with surgery. The patient was recommended to achieve pulmonary and dental clearance for surgery, refrain from smoking, and was then scheduled for elective surgery. HOSPITAL COURSE: The patient was brought to the hospital on 08/25/2021, taken to the preoperative area, prepared in the usual fashion, and subsequently taken to the operating room where Dr. Amos performed a complex mitral valve repair. Upon completion of surgery the patient was transferred to the cardiovascular intensive care unit where he was recovered and monitored hemodynamically. He was extubated, all lines, tubes, and drips were discontinued when appropriate, and transfer orders were placed for 3 S. cardiac stepdown unit, however there was no bed availability and the patient remained on ICU as a stepdown patient until discharge. His oxygen was titrated down, he continued to work with physical and occupational therapy, he was tolerating oral diet, his pain was controlled, and he was ready to be discharged to home with [facility] on postoperative day #5. He received written and verbal instruction regarding his medications, activity restrictions, signs and symptoms requiring physician notification, and follow-up appointments. Patient Condition at Discharge: Stable Plan - Discharge Summary Discharge Rx Participant: No New Discharge Prescriptions: New Tamsulosin [Flomax] 0.4 mg PO PC-SUPPER #30 Clopidogrel [Plavix] 75 mg PO DAILY #30 tab Acetaminophen Tab [Tylenol] 650 mg PO Q4HR PRN tab PRN Reason: Fever And/ Or Pain Amiodarone [Cordarone] 400 mg PO BID #36 tab Potassium Chloride ER [K-Dur 20] 20 meq PO DAILY #5 tab Furosemide [Lasix] 20 mg PO DAILY #5 tab Metoprolol Tartrate [Lopressor] 25 mg PO BID #60 tab Pantoprazole [Protonix] 40 mg PO AC-BRKFST #30 tab Sennosides-Docusate Sodium [Senokot-S] 2 each PO HS PRN tab PRN Reason: Constipation Continue Latanoprost/Pf [Latanoprost 0.005% Eye Drop] 1 drop BOTH EYES HS Varenicline [Chantix Continuing Pack] 1 mg PO DAILY Aspirin [Adult Low Dose Aspirin EC] 81 mg PO DAILY Umeclidinium Brm/Vilanterol Tr [Anoro Ellipta 62.5-25 Mcg INH] 1 puff INHALATION DAILY Changed Atorvastatin [Lipitor] 40 mg PO HS #30 tab Discharge Medication List Aspirin [Adult Low Dose Aspirin EC] 81 mg PO DAILY 06/12/19 [History] Latanoprost/Pf [Latanoprost 0.005% Eye Drop] 1 drop BOTH EYES HS 06/12/19 [History] Varenicline [Chantix Continuing Pack] 1 mg PO DAILY 06/12/19 [History] Umeclidinium Brm/Vilanterol Tr [Anoro Ellipta 62.5-25 Mcg INH] 1 puff INHALATION DAILY 08/21/21 [History] Acetaminophen Tab [Tylenol] 650 mg PO Q4HR PRN tab 08/30/21 [Rx] Amiodarone [Cordarone] 400 mg PO BID #36 tab 08/30/21 [Rx] Atorvastatin [Lipitor] 40 mg PO HS #30 tab 08/30/21 [Rx] Clopidogrel [Plavix] 75 mg PO DAILY #30 tab 08/30/21 [Rx] Furosemide [Lasix] 20 mg PO DAILY #5 tab 08/30/21 [Rx] Metoprolol Tartrate [Lopressor] 25 mg PO BID #60 tab 08/30/21 [Rx] Pantoprazole [Protonix] 40 mg PO AC-BRKFST #30 tab 08/30/21 [Rx] Potassium Chloride ER [K-Dur 20] 20 meq PO DAILY #5 tab 08/30/21 [Rx] Sennosides-Docusate Sodium [Senokot-S] 2 each PO HS PRN tab 08/30/21 [Rx] Tamsulosin [Flomax] 0.4 mg PO PC-SUPPER #30 08/30/21 [Rx] Follow up Appointment(s)/Referral(s): Ky Waldrop MD [STAFF PHYSICIAN] - 09/17/21 4:00 pm [facility] [NON-STAFF] - 4 Weeks (You will receive a phone call in approximately 4-6 weeks for evaluation for cardiac rehab) [facility] [[facility] - 1-2 Days (You will be seen the day after discharge, then 2-3 times per week for 4 weeks. Phone number is ) Deepali Amos MD [STAFF PHYSICIAN] - 09/26/21 10:30 am Devante De La Rosa MD [Primary Care Provider] - 09/12/21 10:00 am Alejo Edmonds NPC [Nurse Practitioner] - 09/05/21 11:00 am (You will be seen in the surgeon's office behind the [facility] [address]. Phone number for the office is ) Isaac Garibay DO [Doctor of Osteopathic Medicine] - 09/25/21 9:15 am Ambulatory/Diagnostic Orders: Complete Blood Count w/diff [LAB.AMB] Time Frame: 3 Days, Location: None Selected Comprehensive Metabolic Panel [LAB.AMB] Time Frame: 3 Days, Location: None Selected Activity/Diet/Wound Care/Special Instructions: DISCHARGE INSTRUCTIONS: 1. No driving for 4 weeks, or until physician gives their ok. 2. The patient should sleep in their own bed, no medical bed needed. 3. Stairs are not an issue. If the bedroom is upstairs, it is advised that the patient go up at night and down in the morning for the first week. Go slowly, using handrail and take 1 step at a time. 4. ROCIO hose are to be worn for 30 days or until physician discontinues. 5. Heart hugger is to be worn 100% of the time until physician discontinues. (except when showering) 6. No lifting, pushing, or pulling more than 10 pounds for 12 weeks. The physician will advise of any restriction changes. 7. The patient is expected to continue the prescribed walking program. 8. Continue pain control per as needed orders. 9. Continue with incentive spirometry and splinting/heart hugger until otherwise directed by the physician. 10. Must shower daily using liquid antibacterial soap and a separate white washcloth for each individual incision. 11. Routine sternal incision care. No powders, lotions, ointments on incisions. No dressings are necessary on incisions unless they are draining. Dermabond tape is to remain on sternal incision until surgeon follow-up. 12. Please call surgeon/PROVIDER NETWORK ANALYST for temp greater than 101 F or purulent drainage from incisions. 13. You should weigh yourself every morning and record, bring with you to follow up appointments 14. All prescriptions given by surgeon for 30 days. Refills need to be filled t hrough bottom buffer/primary care physician. 15. A Red armband has been placed on the patient. It should be worn for 30 days post surgery and will be removed by the cardiac surgeons. If an ER visit is necessary, please make sure the number on the Red armband is called. 16. You have been referred to and are expected to begin Cardiac Rehab in approximately 4-6 weeks. HOME HEALTH SERVICES TO PROVIDE: RN SKILLED HOME CARE SERVICES FOR POST-OP SURGICAL PATIENTS WITH THE FOLLOWING: Coronary Artery Bypass Surgery (CABG), Mitral Valve Replacement/Repair ( MVR), Aortic Valve Replacement/Repair (AVR) RN TO CONTINUE EDUCATION FROM ``ROAD TO A HEALTH HEART PATIENT EDUCATION MANUAL (GIVEN TO PATIENT IN THE HOSPITAL) MEDICATION RECONCILIATION WITH EDUCATION NEEDED ON FIRST HOME VISIT EMPHASIZE IMPORTANCE OF WEARING BREAST SUPPORT/HEART HUGGER ENCOURAGE USE OF INCENTIVE SPIROMETER 10 X EVERY HOUR WHILE AWAKE ENCOURAGE UTILIZATION OF LOWER EXTREMITY COMPRESSION STOCKINGS/ROCIO HOSE and ELEVATE LEGS ABOVE LEVEL OF HEART WHILE AT REST. ENCOURAGE AMBULATION 3-5x/day INCREASING TOLERATES, WHILE AVOIDING EXTREMES IN TEMPERATURE FREQUENCY: RN TO OPEN THE PATIENT WITHIN 24 HOURS OF DISCHARGE FROM THE HOSPITAL WITH [place] [facility] [place] 2-3 X A WEEK FOR 4 WEEKS ESTABLISHED BY PATIENT NEEDS. LABORATORY: CBC, CMP TO BE DRAWN ON THE THIRD DAY HOME, (RAN STAT) FAX RESULTS TO [phone]. TELEHEALTH PARAMETERS: WEIGHT: NOTIFY MD OF WEIGHT GAIN OF 2 LBS IN 24 HOURS OR 5 LBS IN ONE WEEK HR: NOTIFY MD OF HR <55 BPM OR HR>100 BPM BP: NOTIFY MD IF BP <90/55 OR BP>140/100 O2 SAT: NOTIFY MD IF PO2<93% ON ROOM AIR SEND TELEHEALTH REPORT TO ARCHITECTURAL DESIGNER AND CARDIOVASCULAR SURGEON THE FIRST WEEK OF CARE AND THEN BI-WEEKLY. PLEASE ADDITIONALLY COMMUNICATE ANY ABNORMALS AND NEW FINDINGS TO THE SURGEONS OFFICE. Discharge Disposition: HOME WITH HOME HEALTH SERVICES Care Plan Goals (MU): [facility].
[2021-08-30] MEDS: AMIODARONE 200 MG TAB PO SCH (09:18)
[2021-08-30] MEDS: CLOPIDOGREL 75 MG TAB PO SCH (09:19)
[2021-08-30] MEDS: ATORVASTATIN 40 MG TAB PO SCH (09:19)
[2021-08-30] MEDS: FONDAPARINUX 7.5 MG/0.6 ML SYRINGE SQ SCH (09:19)
[2021-08-30] MEDS: METOPROLOL TARTRATE 25 MG TAB PO SCH (09:19)
[2021-08-30] MEDS: ASPIRIN 325 MG TAB PO SCH (09:19)
[2021-08-30 10:49] VITALS: BP 121/62; PULSE 86; RESP 17
--- NOTE | 2021-08-30 11:06 | P.PN ---
Subjective Progress Note Date: 08/30/21 74-year-old white male patient with past medical history of hypertension, former smoker, COPD, who had symptoms of exertional dyspnea. His workup included cardiac catheterization, 2-D echo and transesophageal echocardiogram. He has preserved left ventricular function, mild left atrial dilatation, he was found to have severe prolapse of P2 was severe mitral valve regurgitation. His carotid ultrasound showed no significant stenosis. Cardiac cath on the 07/13/2019 showed normal coronary arteries, and normal left ventricular size and systolic function with severe mitral regurgitation. She also had low-dose lung CT which showed stable 3 mm subpleural nodule in the right middle lobe, and stable 3-4 mm right upper lobe nodule, moderately severe COPD. Patient actually did not have surgery until today on 08/25/2021 he came in for mitral valve repair, exclusion of the left atrial appendage and intraoperative transesophageal echocardiogram. We are seeing the patient is postoperative period, he is intubated and sedated, he is on small dose to prevent a 25 mics per kilo per minute, 0.50 ML per hour. No vasoactive drips. Vent settings are assist-control with a rate of 16, tidal volume is 400, FiO2 100% and PEEP of 5. Postoperative blood gases pending. Hemodynamically he is stable, blood p ressures 102/56, PA pressures 22 over 1, CVP 3, cardiac output is 4.0, cardiac index is 2.1. 2 mediastinal chest tubes connected together with 140 of sanguinous output in the Pleur-evac, and 50 mL of sanguinous output in the right pleural chest tube. In sinus mechanism. On 08/26/2021 patient seen in follow-up in intensive care unit. He was successfully weaned and extubated on postoperative day #0, at 1858, 2 minutes under his 6 hour nicolas from the OR exit time. He sitting up in a chair today, awake and alert, is having some mild to moderate discomfort in his back, not so much incisional discomfort, hemodynamically stable, he is currently on normal saline at 50 ML per hour, insulin drip is at 2.5 units per hour, no vasoactive drips, she is in sinus mechanism, he is a paced at 80 BPM, blood pressure is 128/53, PA pressures 23/11, CVP is 6, cardiac output is 3.4, cardiac index is 1.7. Chest x-ray showing a trace 9 mm right apical pneumothorax versus 7 mm previously, trace left apical pneumothorax measuring 6 mm, and patchy left basilar retrocardiac atelectasis which has increased. Patient is working on incentive spirometer, he is achieving 2000 on it today. on 4 L of oxygen pulse ox is 95%. Breathing fairly comfortable, lung sounds are clear, diminished at the bases. Patient has 2 mediastinal and one right pleural chest tube, there is 450 mL of the mediastinal and 300 mL out of the right pleural over last 24 hours of thin serosanguineous output. Today's labs have been reviewed, white blood cell count is 13.1, hemoglobin is 11.8, sodium is 137, potassium is 3.6, chlor marquez is 108, CO2 is 20, BUN is 18, creatinine 0.70. Patient is tolerating oral intake. His surgical incisions are clean dry and intact. On 08/27/2021 patient seen in follow-up in intensive care unit, disease postoperative day #2, status post mitral valve repair, left atrial appendage exclusion. Patient went into A. fib with RVR last night at about 1:00 in the morning. Oxygenation had worsened since then as well, currently on 7 L of oxygen pulse ox is 96-97%, does not appear to be in any acute distress, this morning he remains in atrial fibrillation, amiodarone has been started by CT surgery, currently infusing at 0.5 milligrams per minute. Insulin is currently pulse, 0.9 normal saline at a rate of 30 ML per hour, today's chest x-ray reviewed showing tiny right apical pneumothorax and tiny left apical pneumothorax estimated at less than 10% each, right basilar chest tube is still in place, patchy basilar atelectasis. Incentive spirometer effort is slightly worse compared to yesterday, patient is achieving 1500 on it today compared 2000 yesterday. Mediastinal chest tube was discontinued yesterday, right pleural chest tube remains in place, with thin serosanguineous output with approximately 120 mL of output in the last 24 hours. His back pain is fairly well controlled he states as long as he gets the medication. He has ambulated and tolerated activity fairly well. Today's labs have been reviewed, blood cell count is 18.6, hemoglobin is 12.3, sodium is 136, potassium is 4.0, chloride is 108, CO2 is 21, BUN is 18 creatinine 0.76. Surgical incisions clean dry and intact. On 08/28/2021 patient seen in follow-up in the intensive care unit, today's postoperative day #3, status post mitral valve repair, left atrial appendage exclusion. Patient converted back to sinus rhythm yesterday at 3:30 in the afternoon, hemodynamically has remained stable, he has been transitioned to oral amiodarone, both his chest tubes have been discontinued, his Quinones, and other lines have been discontinued. Currently just has AV wires in place that are grown, intrinsic rhythm is sinus. Not requiring any pacing, breathing comfortably, his back pain is better controlled, he is on 5 L of oxygen pulse ox is 93-95%, hemodynamically has been stable, today's chest x-ray has been revie wed showing bilateral infiltrate, pleural effusion correlates with mild CHF, tiny right apical pneumothorax measuring less than 5 cm, left apical pneumothorax not well seen area incentive spirometer effort is 1.4 L. Patient has tolerated ambulation. His surgical incisions are clean dry and intact, he is tolerating oral intake, no abdominal pain. On 08/29/2021 patient is seen in follow-up in the intensive care unit. He is awake and alert in no acute distress. Today's postoperative day #4 status post mitral valve repair, left atrial appendage exclusion. Remains in sinus mechanism, currently not on any IV fluids or IV drugs. Breathing comfortably, lung sounds are clear, incentive spirometry every 1.5 L. Chest x-ray showing tiny 5% right apical pneumothorax, otherwise stable postoperative changes. Today's labs have been reviewed, white blood cell count is 8.4, hemoglobin is 11.0, platelet count is 122, electrolytes and renal profile are within normal limits. Patient has been tolerating ambulation. AV wires are still in place, all chest tubes Quinones catheterization of the catheters have been discontinued. Patient has received a dose of IV Lasix today, remains on breathing treatments, his IV amiodarone has been converted to oral amiodarone, he remains on aspirin, Lipitor, Plavix, he was started on Arixtra for anticoagulation. Incisions are clean dry and intact. The patient is seen today 08/30/2021 in follow-up in the intensive care unit. He is awake and alert in no acute distress. Sitting up in a chair at the bedside. This is postoperative day #5 status post mitral valve repair, left atrial appendage exclusion. He is maintaining normal sinus rhythm. He denies any worsening shortness of breath, cough or congestion. No chest pain or palpitations. He's on room air oxygen. No IV fluids. AV wires removed. Chest x-ray reveals bandlike opacity in the right upper lobe. Some postsurgical changes unchanged compared to previous. Small bilateral effusions stable. No pneumothorax. White count 6.0. Hemoglobin 10.5. Sodium 139. Potassium 3.6. BUN 19. Creatinine 0.83. He is continued on DuoNeb inhalations, anticoagulated with Arixtra. Objective - Vital Signs Vital signs: Vital Signs Temp 98.1 F 08/30/21 04:00 Pulse 86 08/30/21 06:00 Resp 17 08/30/21 06:00 BP 121/62 08/30/21 06:00 Pulse Ox 98 08/30/21 04:00 Intake & Output 08/29/21 08/30/21 08/30/21 18:59 06:59 18:59 Intake Total 1140 400 240 Output Total 800 450 Balance 340 -50 240 Weight 77.3 kg Intake: IV 220 0.9 NaCl- 120 Calcium Gluconate 2 gm In 100 Sodium Chloride 0.9% 100 ml @ 100 mls/hr IVPB ONCE ONE Rx#:[id number] Oral 920 400 240 Output: Urine 800 450 Other: Voiding Method Toilet Toilet Urinal Urinal # Voids 1 1 1 ABP, PAP, CO, CI - Last Documented Arterial Blood Pressure 112/60 Pulmonary Artery Pressure 23/11 Cardiac Output 5.4 Cardiac Index 2.7 - Exam GENERAL EXAM: Alert, very pleasant, 76-year-old male, sitting up in the recliner, he is currently on room air, comfortable in no apparent distress. HEAD: Normocephalic/atraumatic. EYES: Normal reaction of pupils, equal size. Conjunctiva pink, sclera white. NOSE: Clear with pink turbinates. THROAT: No erythema or exudates. NECK: No masses, no JVD, no thyroid enlargement, no adenopathy. CHEST: No chest wall deformity. Symmetrical expansion. Midsternal incision is clean dry and intact, chest tube sites are clean dry and intact. AV wires were removed LUNGS: Equal air entry with no crackles, wheeze, rhonchi or dullness. CVS: Regular rate and rhythm, normal S1 and S2, no gallops, no murmurs, no rubs ABDOMEN: Soft, nontender. No hepatosplenomegaly, normal bowel sounds, no guarding or rigidity. EXTREMITIES: No clubbing, no edema, no cyanosis, 2+ pulses and upper and lower extremities. MUSCULOSKELETAL: Muscle strength and tone normal. SPINE: No scoliosis or deformity SKIN: No rashes CENTRAL NERVOUS SYSTEM: Awake and alert, oriented 3 No focal deficits, tone is normal in all 4 extremities. - Labs CBC & Chem 7: 08/30/21 05:44 08/30/21 05:44 Labs: Abnormal Lab Results - Last 24 Hours (Table) 08/29/21 08/29/21 08/29/21 Range/Units 13:32 16:27 20:49 RBC (4.30-5.90) m/uL Hgb (13.0-17.5) gm/dL Hct (39.0-53.0) % Glucose (74-99) mg/dL POC Glucose (mg/dL) 134 H 117 H 117 H (75-99) mg/dL Calcium (8.4-10.2) mg/dL 08/30/21 08/30/21 08/30/21 Range/Units 05:44 05:44 06:27 RBC 3.22 L (4.30-5.90) m/uL Hgb 10.5 L (13.0-17.5) gm/dL Hct 31.4 L (39.0-53.0) % Glucose 110 H (74-99) mg/dL POC Glucose (mg/dL) 114 H (75-99) mg/dL Calcium 8.0 L (8.4-10.2) mg/dL Assessment and Plan Assessment: 1 Symptomatic mitral valve regurgitation, status post mitral valve repair, exclusion of left atrial appendage, and intraoperative BECKY on 08/25/2021, postoperative day #5 2 Routine postoperative ventilator management, patient was successfully weaned and extubated on postoperative day #0, at the 1858, 2 minutes before 6 hour nicolas from his OR exit time 3 Postoperative A. fib with RVR, and expected outcome of mitral valve surgery, patient has currently converted back to sinus, amiodarone drip will be converted to oral. He started on Arixtra 4 Hyperlipidemia 5 Former smoker 6 History of cataracts 7 History of basal cell carcinoma with surgical removal 8 Moderately severe COPD with preoperative PFT of 67% predicted Plan: The patient was seen and evaluated Stable from the pulmonary and critical care standpoint On room air and the plan is for discharge home today Encouraged to continue the use of the incentive spirometer Follow up in the office in 1-2 weeks' He'll have a follow-up chest x-ray then I have personally seen and examined the patient, performed the documentation and the assessment and plan as written. Number of minutes spent on the visit: 10.
== END 2021-08-30 12:00 | disposition home health service (06) | DRG 220 ==
LOC: 2ORMAIN 05:34 → 2SICU 13:25
PROVIDERS: ADMIT Surgery; ATTEND Surgery
PROC: B246ZZ4 Ultrasonography of Right and Left Heart, Transesophageal (ICD-10-PCS; 2021-08-25)
PROC: 6A550Z2 Pheresis of Platelets, Single (ICD-10-PCS; 2021-08-25)
PROC: 0W9C30Z Drainage of Mediastinum with Drainage Device, Percutaneous Approach (ICD-10-PCS; 2021-08-25)
PROC: 0W9930Z Drainage of Right Pleural Cavity with Drainage Device, Percutaneous Approach (ICD-10-PCS; 2021-08-25)
PROC: 4A133B1 Monitoring of Arterial Pressure, Peripheral, Percutaneous Approach (ICD-10-PCS; 2021-08-25)
PROC: 4A133J1 Monitoring of Arterial Pulse, Peripheral, Percutaneous Approach (ICD-10-PCS; 2021-08-25)
PROC: 05HM33Z Insertion of Infusion Device into Right Internal Jugular Vein, Percutaneous Approach (ICD-10-PCS; 2021-08-25)
PROC: B543ZZA Ultrasonography of Right Jugular Veins, Guidance (ICD-10-PCS; 2021-08-25)
PROC: 02L70CK Occlusion of Left Atrial Appendage with Extraluminal Device, Open Approach (ICD-10-PCS; principal; 2021-08-25 08:00)
PROC: 02QG0ZZ Repair Mitral Valve, Open Approach (ICD-10-PCS; 2021-08-25 08:00)
PROC: 05HA33Z Insertion of Infusion Device into Left Brachial Vein, Percutaneous Approach (ICD-10-PCS; 2021-08-27)
DX: I34.0 Nonrheumatic mitral (valve) insufficiency (principal); I50.32 Chronic diastolic (congestive) heart failure; D62 Acute posthemorrhagic anemia; J93.9 Pneumothorax, unspecified; K92.0 Hematemesis; D69.6 Thrombocytopenia, unspecified; E78.5 Hyperlipidemia, unspecified; I11.0 Hypertensive heart disease with heart failure; Z00.6 Encounter for examination for normal comparison and control in clinical research program; F17.210 Nicotine dependence, cigarettes, uncomplicated; I48.0 Paroxysmal atrial fibrillation; I73.9 Peripheral vascular disease, unspecified; J44.9 Chronic obstructive pulmonary disease, unspecified; K44.9 Diaphragmatic hernia without obstruction or gangrene; Z79.82 Long term (current) use of aspirin; Z79.899 Other long term (current) drug therapy; Z85.46 Personal history of malignant neoplasm of prostate; Z85.828 Personal history of other malignant neoplasm of skin; Z86.79 Personal history of other diseases of the circulatory system; Z87.01 Personal history of pneumonia (recurrent); Z95.2 Presence of prosthetic heart valve; Z96.1 Presence of intraocular lens; Z98.42 Cataract extraction status, left eye; Z98.41 Cataract extraction status, right eye; Z88.0 Allergy status to penicillin; Z87.19 Personal history of other diseases of the digestive system; Z91.030 Bee allergy status
CPT/HCPCS: 36410; 71045; 71046; 76937; 80048; 80053; 82330; 82805; 83735; 84132; 85025; 85027; 85520; 85610; 85730; 86022; 86850; 86891; 86900; 86901; 86920; 94002; 94640

== ENCOUNTER → 2021-11-05 | Outpatient (CLI) | payer MEDICARE ==
[2021-11-05 10:43] LABS: ALT 14 U/L (10-49); AST 16 U/L (14-35); African American GFR (CKD) 83.2 (60.0-200.0); Albumin 4.1 g/dL (3.8-4.9); Albumin/Globulin Ratio 1.58 (1.60-3.17); Alkaline Phosphatase 69 U/L (41-126); Blood Urea Nitrogen 16.9 mg/dL (9.0-27.0); Calcium 9.3 mg/dL (8.7-10.3); Carbon Dioxide 25.1 mmol/L (20.0-27.5); Chloride 104 mmol/L (96-109); Chol/HDL Ratio 2.68 Ratio; Globulin 2.6 g/dL (1.6-3.3); Glucose 106 mg/dL (70-110); LDL Cholesterol,Calculated 70.7 mg/dL (0.0-131.0); Non-African American GFR(CKD) 71.8 (60.0-200.0); Potassium 4.6 mmol/L (3.5-5.5); Sodium 140 mmol/L (135-145); Total Protein 6.7 g/dL (6.2-8.2); VLDL Calculation 14.62 mg/dL (5.00-40.00)
== END | disposition home or self-care (01) ==
LOC: LABWHC1 07:35
PROVIDERS: ATTEND Internal Medicine Interventional Cardiology
DX: E78.2 Mixed hyperlipidemia (principal)
CPT/HCPCS: 36415; 80053; 80061

== ENCOUNTER 2021-11-14 16:41 | Emergency (ER) | payer MEDICARE ==
[2021-11-14 19:38] LABS: Basophils # (A) 0.1 k/uL (0-0.2); Basophils % (A) 1 %; Eosinophils # (A) 0.2 k/uL (0-0.7); Eosinophils % (A) 2 %; HCT 49.5 % (39.0-53.0); HGB 15.7 gm/dL (13.0-17.5); Lymphocytes # (A) 1.4 k/uL (1.0-4.8); Lymphocytes % (A) 11 %; MCH 29.9 pg (25.0-35.0); MCHC 31.7 g/dL (31.0-37.0); MCV 94.5 fL (80.0-100.0); Mean Platelet Volume 7.8; Monocytes # (A) 0.9 k/uL (0-1.0); Monocytes % (A) 7 %; Neutrophils # (A) 9.9 k/uL (1.3-7.7); Neutrophils % (A) 79 %; Platelet Count 263 k/uL (150-450); RBC 5.24 m/uL (4.30-5.90); RDW 13.8 % (11.5-15.5); WBC 12.6 k/uL (3.8-10.6)
--- NOTE | 2021-11-14 19:46 | XR ---
EXAMINATION TYPE: XR KUB DATE OF EXAM: 11/14/2021 COMPARISON: NONE HISTORY: Hernia pain. TECHNIQUE: 2 views upright FINDINGS: There are some borderline dilated gas-filled small bowel loops in the left upper quadrant. No free air. Lung bases are clear. No calcification seen over the kidneys. IMPRESSION: Distended small bowel in the left upper quadrant could relate to ileus or partial mechani jeff obstruction.
[2021-11-14 19:48] LABS: ALT 17 U/L (4-49); AST 23 U/L (17-59); African American GFR (CKD) >90 (>60 ml/min/1.73 sqM); Albumin 4.8 g/dL (3.5-5.0); Alkaline Phosphatase 75 U/L (38-126); Amylase 57 U/L (30-110); Anion Gap 9 mmol/L; Blood Urea Nitrogen 17 mg/dL (9-20); Calcium 9.5 mg/dL (8.4-10.2); Carbon Dioxide 26 mmol/L (22-30); Chloride 104 mmol/L (98-107); Glucose 106 mg/dL (74-99); Lipase 92 U/L (23-300); Non-African American GFR(CKD) 82 (>60 ml/min/1.73 sqM); Potassium 4.5 mmol/L (3.5-5.1); Sodium 139 mmol/L (137-145); Total Protein 7.9 g/dL (6.3-8.2)
[2021-11-14 19:49] LABS: Partial Thromboplastin Time 25.4 sec (22.0-30.0); Prothrombin Time 10.9 sec (9.0-12.0)
[2021-11-14 20:03] LABS: Appearance,Urine Clear (Clear); Bilirubin,Urine Negative (Negative); Blood,Urine Small (Negative); Color,Urine Yellow; Glucose,Urine (UA) Negative (Negative); Hyaline Casts,Urine 1 /lpf (0-2); Ketones,Urine Trace (Negative); Leukocyte Esterase,Urine Negative (Negative); Mucus,Urine Few /hpf; Nitrite,Urine Negative (Negative); PH, Urine 5.5 (5.0-8.0); Protein,Urine Negative (Negative); RBC,Urine 2 /hpf (0-5); Urobilinogen,Urine <2.0 mg/dL (<2.0); WBC,Urine <1 /hpf (0-5)
[2021-11-14] MEDS ORDERED: ONDANSETRON 4 MG/2 ML VIAL IVP STA (22:16)
[2021-11-14] MEDS ORDERED: HYDROmorphone 0.5 MG/0.5 ML SYRINGE IVP STA (22:16)
[2021-11-14] MEDS ORDERED: SODIUM CHLORIDE 0.9% 1,000 ML IV STA (22:16)
--- NOTE | 2021-11-14 22:20 | ED ---
General Adult HPI - General Chief complaint: Abdominal Pain Stated complaint: Hernia Time Seen by Provider: 11/14/21 21:21 Source: patient, RN notes reviewed Mode of arrival: ambulatory Limitations: no limitations - History of Present Illness Initial comments: 76-year-old male with a past medical history of recent open heart surgery presents to the emergency department for evaluation of periumbilical pain. Patient states he was moving a car battery this morning and shortly thereafter developed a firm area around his belly button that has been tender throughout the day. Patient reports pain has increased throughout the day, but did not take anything prior to arrival. Patient states he has been able to tolerate oral intake without difficulty and had a regular formed soft bowel movement this morning. Complains of mild nausea at this time. Patient denies fever, chills, headache, chest pain, difficulty breathing, vomiting, diarrhea, or dysuria. - Related Data Home Medications Medication Instructions Recorded Confirmed Aspirin [Adult Low Dose Aspirin EC] 81 mg PO DAILY 06/12/19 08/25/21 Latanoprost/Pf [Latanoprost 0.005% 1 drop BOTH EYES HS 06/12/19 08/25/21 Eye Drop] Varenicline [Chantix Continuing 1 mg PO DAILY 06/12/19 08/25/21 Pack] Umeclidinium Brm/Vilanterol Tr 1 puff INHALATION DAILY 08/21/21 08/25/21 [Anoro Ellipta 62.5-25 Mcg INH] Previous Rx's Medication Instructions Recorded Acetaminophen Tab [Tylenol] 650 mg PO Q4HR PRN tab 08/30/21 Amiodarone [Cordarone] 400 mg PO BID #36 tab 08/30/21 Atorvastatin [Lipitor] 40 mg PO HS #30 tab 08/30/21 Clopidogrel [Plavix] 75 mg PO DAILY #30 tab 08/30/21 Furosemide [Lasix] 20 mg PO DAILY #5 tab 08/30/21 Metoprolol Tartrate [Lopressor] 25 mg PO BID #60 tab 08/30/21 Pantoprazole [Protonix] 40 mg PO AC-BRKFST #30 tab 08/30/21 Potassium Chloride ER [K-Dur 20] 20 meq PO DAILY #5 tab 08/30/21 Sennosides-Docusate Sodium 2 each PO HS PRN tab 08/30/21 [Senokot-S] Tamsulosin [Flomax] 0.4 mg PO PC-SUPPER #30 08/30/21 Allergies Allergy/AdvReac Type Severity Reaction Status Date / Time bee venom protein (honey bee) Allergy Anaphylaxis Verified 11/14/21 18:37 Penicillins Allergy Rash/Hives Verified 11/14/21 18:37 Review of Systems ROS Statement: Those systems with pertinent positive or pertinent negative responses have been documented in the HPI. ROS Other: All systems not noted in ROS Statement are negative. Past Medical History Past Medical History: Cancer, Eye Disorder, Hyperlipidemia Additional Past Medical History / Comment(s): states "mitral valve problems and aortic valve problems of some of the testing that was done with Dr De La Rosa",GLAUCOMA BILAT. HX BASAL CELL SKIN CANCER ON FOREHEAD AND RT SIDE OF NECK. History of Any Multi-Drug Resistant Organisms: None Reported Past Surgical History: Appendectomy, Heart Catheterization Additional Past Surgical History / Comment(s): BECKY,COLONOSCOPY. SKIN CANCER R EMOVED. BILAT CATARACTS REMOVED/LENS IMPLANTS. MACULAR HOLE REPAIR LT EYE Past Anesthesia/Blood Transfusion Reactions: No Reported Reaction Additional Past Anesthesia/Blood Transfusion Reaction / Comment(s): No hx blood transfusion Past Psychological History: No Psychological Hx Reported Smoking Status: Former smoker - Past Family History Mother Family Medical History: No Reported History General Exam Limitations: no limitations (Well-developed, well-nourished male in no acute distress. Initial temperature 97.7, pulse 78, respirations 18, blood pressure 137/78, pulse ox 96% on room air.) General appearance: alert, in no apparent distress Eye exam: Present: normal appearance, PERRL, EOMI. Absent: scleral icterus, conjunctival injection, periorbital swelling ENT exam: Present: normal exam, normal oropharynx, mucous membranes moist Respiratory exam: Present: normal lung sounds bilaterally. Absent: respiratory distress, wheezes, rales, rhonchi, stridor, chest wall tenderness Cardiovascular Exam: Present: regular rate, normal rhythm. Absent: systolic murmur, diastolic murmur, rubs, gallop, clicks GI/Abdominal exam: Present: tenderness, guarding (Creatinine of the middle abdomen), normal bowel sounds, hernia (Appearance of periumbilical hernia- states it has been there for a while, but is larger, painful, and firm to touch.). Absent: soft (Abdomen is soft overall with a localized area of periumbilical firmness accompanied by tenderness upon palpation), distended, rebound, rigid Neurological exam: Present: alert, oriented X3, normal gait Psychiatric exam: Present: normal affect, normal mood Skin exam: Present: warm, dry, intact, normal color. Absent: rash Course Vital Signs 11/14/21 11/14/21 18:33 22:45 Temperature 97.7 F 97.9 F Pulse Rate 78 85 Respiratory 18 20 Rate Blood Pressure 137/78 147/83 O2 Sat by Pulse 96 95 Oximetry - Reevaluation(s) Reevaluation #1: 11/15/21 00:00 Hernia successfully reduced. Pain significantly improved. Patient appears to be resting comfortably. Will reassess shortly. 11/15/21 01:00 Patient able to ambulate, urinate, and is tolerating oral intake. Hernia reduction remain successful at this time. Patient will be discharged home to follow up with surgeon. Strict return parameters were discussed in detail. Patient verbalizes understanding and agrees with this plan. Medical Decision Making - Medical Decision Making This is a 76-year-old male with a past medical history glaucoma and mitral valve replacement of presents to the emergency department for evaluation of periumbilical pain. Upon exam, patient has a localized area of firmness and tenderness around the umbilicus. States he has a known hernia which has never caused him pain until today when he lifted a car battery to move it. Laboratory studies were obtained showing mild leukocytosis which could be attributed to vomiting. CT of the abdomen and pelvis with contrast showed an incarcerated umbilical hernia with mechanical small bowel obstruction. Patient was given IV fluids, pain medication, and nausea medication with improvement. Hernia was reduced successfully and reduction was maintained throughout his stay. He will be discharged home to follow-up with a surgeon. He is strongly advised to avoid lifting anything heavier than a gallon of milk. Instructed to refrain from vigorous or strenuous activity. Return parameters were discussed in detail. Patient and spouse verbalized understanding and agreed with this plan. Attending: Scarlet. - Lab Data Result diagrams: 11/14/21 19:26 11/14/21:26 Lab Results 11/14/21 11/14/21 11/14/21 Range/Units 19:26 19: 19: WBC 12.6 H (3.8-10.6) k/uL RBC 5.24 (4.30-5.90) m/uL Hgb 15.7 (13.0-17.5) gm/dL Hct 49.5 (39.0-53.0) % MCV 94.5 (80.0-100.0) fL MCH 29.9 (25.0-35.0) pg MCHC 31.7 (31.0-37.0) g/dL RDW 13.8 (11.5-15.5) % Plt Count 263 (150-450) k/uL MPV 7.8 Neutrophils % 79 % Lymphocytes % 11 % Monocytes % 7 % Eosinophils % 2 % Basophils % 1 % Neutrophils # 9.9 H (1.3-7.7) k/uL Lymphocytes # 1.4 (1.0-4.8) k/uL Monocytes # 0.9 (0-1.0) k/uL Eosinophils # 0.2 (0-0.7) k/uL Basophils # 0.1 (0-0.2) k/uL PT 10.9 (9.0-12.0) sec INR 1.0 (<1.2) APTT 25.4 (22.0-30.0) sec Sodium 139 (137-145) mmol/L Potassium 4.5 (3.5-5.1) mmol/L Chloride 104 (98-107) mmol/L Carbon Dioxide 26 (22-30) mmol/L Anion Gap 9 mmol/L BUN 17 (9-20) mg/dL Creatinine 0.89 (0.66-1.25) mg/dL Est GFR (CKD-EPI)AfAm >90 (>60 ml/min/1.73 sqM) Est GFR (CKD-EPI)NonAf 82 (>60 ml/min/1.73 sqM) Glucose 106 H (74-99) mg/dL Plasma Lactic Acid Yan (0.7-2.0) mmol/L Calcium 9.5 (8.4-10.2) mg/dL Total Bilirubin 1.0 (0.2-1.3) mg/dL AST 23 (17-59) U/L ALT 17 (4-49) U/L Alkaline Phosphatase 75 (38-126) U/L Total Protein 7.9 (6.3-8.2) g/dL Albumin 4.8 (3.5-5.0) g/dL Amylase 57 (30-110) U/L Lipase 92 (23-300) U/L Urine Color Urine Appearance (Clear) Urine pH (5.0-8.0) Ur Specific Arvin (1.001-1.035) Urine Protein (Negative) Urine Glucose (UA) (Negative) Urine Ketones (Negative) Urine Blood (Negative) Urine Nitrite (Negative) Urine Bilirubin (Negative) Urine Urobilinogen (<2.0) mg/dL Ur Leukocyte Esterase (Negative) Urine RBC (0-5) /hpf Urine WBC (0-5) /hpf Hyaline Casts (0-2) /lpf Urine Mucus (None) /hpf 11/14/21 11/14/21 Range/Units 19:26 19:52 WBC (3.8-10.6) k/uL RBC (4.30-5.90) m/uL Hgb (13.0-17.5) gm/dL Hct (39.0-53.0) % MCV (80.0-100.0) fL MCH (25.0-35.0) pg MCHC (31.0-37.0) g/dL RDW (11.5-15.5) % Plt Count (150-450) k/uL MPV Neutrophils % % Lymphocytes % % Monocytes % % Eosinophils % % Basophils % % Neutrophils # (1.3-7.7) k/uL Lymphocytes # (1.0-4.8) k/uL Monocytes # (0-1.0) k/uL Eosinophils # (0-0.7) k/uL Basophils # (0-0.2) k/uL PT (9.0-12.0) sec INR (<1.2) APTT (22.0-30.0) sec Sodium (137-145) mmol/L Potassium (3.5-5.1) mmol/L Chloride (98-107) mmol/L Carbon Dioxide (22-30) mmol/L Anion Gap mmol/L BUN (9-20) mg/dL Creatinine (0.66-1.25) mg/dL Est GFR (CKD-EPI)AfAm (>60 ml/min/1.73 sqM) Est GFR (CKD-EPI)NonAf (>60 ml/min/1.73 sqM) Glucose (74-99) mg/dL Plasma Lactic Acid Yan 1.2 (0.7-2.0) mmol/L Calcium (8.4-10.2) mg/dL Total Bilirubin (0.2-1.3) mg/dL AST (17-59) U/L ALT (4-49) U/L Alkaline Phosphatase (38-126) U/L Total Protein (6.3-8.2) g/dL Albumin (3.5-5.0) g/dL Amylase (30-110) U/L Lipase (23-300) U/L Urine Color Yellow Urine Appearance Clear (Clear) Urine pH 5.5 (5.0-8.0) Ur Specific Arvin 1.020 (1.001-1.035) Urine Protein Negative (Negative) Urine Glucose (UA) Negative (Negative) Urine Ketones Trace H (Negative) Urine Blood Small H (Negative) Urine Nitrite Negative (Negative) Urine Bilirubin Negative (Negative) Urine Urobilinogen <2.0 (<2.0) mg/dL Ur Leukocyte Esterase Negative (Negative) Urine RBC 2 (0-5) /hpf Urine WBC <1 (0-5) /hpf Hyaline Casts 1 (0-2) /lpf Urine Mucus Few H (None) /hpf - Radiology Data Radiology results: report reviewed, image reviewed CT of the abdomen and pelvis with contrast was obtained. Report was reviewed in its entirety. Impression per Dr. Martin is incarcerated umbilical hernia contains loop of small bowel with mechanical bowel obstruction. Hernia sac measures 3.5 cm. Mild interstitial infiltrate and atelectasis and fibrotic changes at lung bases. KUB x-ray was obtained. Report was reviewed in its entirety. Impression per Dr. Martin is distended small bowel in the left upper quadrant could relate to ileus or partial mechanical obstruction. Disposition Clinical Impression: Reducible umbilical hernia Disposition: HOME SELF-CARE Condition: Stable Additional Instructions: Minimize heavy lifting to nothing greater than a gallon of milk. Avoid vigorous or strenuous activity. Please call your surgeon on Wednesday to schedule follow-up appointment. Return to the emergency department with any new, worsening, or concerning symptoms. Is patient prescribed a controlled substance at d/c from ED?: No Referrals: Devante De La Rosa MD [Primary Care Provider] - 1-2 days Adolfo Lynch MD [Medical Doctor] - 1-2 days Dimitris Hebert DO [Doctor of Osteopathic Medicine] - 1-2 days Time of Disposition: 01:09
[2021-11-14 22:46] VITALS: BP 147/83; PULSE 85; RESP 20; TEMP 97.9
--- NOTE | 2021-11-14 23:22 | CT ---
EXAMINATION TYPE: CT abdomen pelvis w con DATE OF EXAM: 11/14/2021 COMPARISON: None HISTORY: hernia pain CT DLP: 646.8 mGycm Automated exposure control for dose reduction was used. CONTRAST: Performed with IV Contrast, patient injected with 100 mL of Isovue 300. Images obtained from the diaphragm to the floor the pelvis with IV contrast. There is some interstitial infiltrate and subsegmental atelectasis at the lung bases. Heart appears e nlarged. No pericardial effusion. There is moderate hiatal hernia. Gallbladder appears intact. There are several hepatic cysts that measure up to 2 cm. Spleen is intact. There is no pancreatic mass. There is no adrenal mass. Kidneys show satisfactory contrast opacification. There is no hydronephrosi s. Ureters are not dilated. Delayed images show normal renal excretion. The bladder distends smoothly . There is no inguinal hernia. No free fluid in the pelvis. There are multiple sigmoid diverticula. N o diverticulitis. There are multiple dilated small bowel loops with fluid levels. There is incarcerated umbilical herni a contains loop of small bowel. This is apparently the transition site. Distal ileum is not dilated. The lumbar vertebra have normal alignment. There is compression deformity of L3 and L2 vertebra up to 30%. Fractures are probably old. There is moderate disc space narrowing at L4-5 and L5-S1. The sacro iliac joints are intact. Hip joints are intact. Abdominal aorta is atheromatous. No aneurysm. IMPRESSION: Incarcerated umbilical hernia contains loop of small bowel with mechanical small bowel obstruction. H ernia sac measures 3.5 cm. Mild interstitial infiltrate and atelectasis and fibrotic changes at the lung bases.
[2021-11-15] MEDS ORDERED: HYDROmorphone 0.5 MG/0.5 ML SYRINGE IVP STA (01:07)
== END 2021-11-15 01:45 | disposition home or self-care (01) ==
LOC: EC 16:41
DX: K42.0 Umbilical hernia with obstruction, without gangrene (principal); D72.829 Elevated white blood cell count, unspecified; E78.5 Hyperlipidemia, unspecified; Z79.82 Long term (current) use of aspirin; Z79.02 Long term (current) use of antithrombotics/antiplatelets; Z79.899 Other long term (current) drug therapy; Z87.891 Personal history of nicotine dependence; Z88.0 Allergy status to penicillin; Z90.49 Acquired absence of other specified parts of digestive tract
CPT/HCPCS: 36415; 80053; 82150; 83605; 83690; 85025; 85610; 85730; 81001; 74018; 74177; 99284; 96374; 96375; 96376; 96361; J2405; J1170 ×2; Q9967